=== PATIENT | female | born 1970 | race Hispanic/Latino ===

== ENCOUNTER 2016-07-19 07:48 | Emergency (ER) | payer OTHER ==
[2016-07-19 07:53] VITALS: BMI 27.4
[2016-07-19 07:57] VITALS: TEMP 98.1
[2016-07-19] MEDS ORDERED: Albuterol-Ipratrop 3 mg / 0.5 (3 ml) UD IH STA ×4 (08:20→08:21)
[2016-07-19] MEDS ORDERED: Albuterol-Ipratrop 3 mg / 0.5 (3 ml) UD ONE (08:22)
--- NOTE | 2016-07-19 08:24 | ED PDOC ---
Arrival/HPI - General Chief Complaint: Shortness Of Breath Time Seen by Provider: 07/19/16 08:07 - History of Present Illness Narrative History of Present Illness (Text): 46 year old female with a past medical history that includes COPD and asthma, presents to the Emergency Department complaining of shortness of breath for the past 3 days. Patient states that she has run out of her albuterol medication at home. Denies any history of intubation. Reports cough with clear phlegm and a subjective fever yesterday that resolved. Denies pain, vomiting, travel, sick contacts. Past Medical History - Infectious Disease Hx of Infectious Diseases: None - Tetanus Immunization Tetanus Immunization: Unknown - Cardiac Hx Cardiac Disorders: Yes Hx Hypertension: Yes - Pulmonary Hx Respiratory Disorders: Yes (pt has home o2) Hx Asthma: Yes Hx Bronchitis: Yes Hx Chronic Obstructive Pulmonary Disease (COPD): Yes Hx Emphysema: Yes - Neurological Hx Neurological Disorder: No - HEENT Hx HEENT Disorder: No - Renal Hx Renal Disorder: No - Endocrine/Metabolic Hx Endocrine Disorders: No - Hematological/Oncological Hx Blood Disorders: No - Integumentary Hx Dermatological Disorder: No - Musculoskeletal/Rheumatological Hx Falls: No - Gastrointestinal Hx Gastrointestinal Disorders: No - Genitourinary/Gynecological Hx Genitourinary Disorders: No - Psychiatric Hx Psychophysiologic Disorder: Yes Hx Anxiety: Yes Hx Substance Use: No - Past Surgical History Past Surgical History: No Previous - Surgical History Hx Section: Yes - Anesthesia Hx Anesthesia: Yes Hx Anesthesia Reactions: No - Suicidal Assessment Feels Threatened In Home Enviroment: No Family/Social History Family/Social History: No Known Family HX Smoking Status: Current Some Days Smoker Hx Alcohol Use: No Hx Substance Use: No Hx Substance Use Treatment: No Allergies/Home Meds Allergies/Adverse Reactions: Allergies No Known Allergies Allergy (Verified 07/19/16 07:53) Home Medications: Home Meds Medication Instructions Recorded Confirmed Albuterol 0.5% [Albuterol 0.5% 3 ml IH PRN PRN 05/31/16 07/19/16 Inhal Peggy (5 mg/ ml) 20 ml] Albuterol HFA [Ventolin HFA 90 2 puff IH PRN PRN 05/31/16 07/19/16 mcg/actuation (8 g)] Review of Systems - Physician Review All systems were reviewed & negative as marked: Yes - Review of Systems Respiratory: SOB Cardiovascular: absent: Chest Pain Gastrointestinal: absent: Abdominal Pain Physical Exam - Physical Exam Narrative Physical Exam (Text): Constitutional: No acute distress. Head: Normocephalic. Atraumatic. Eyes: PERRL. ENT: Moist mucous membranes. Neck: Supple. Cardiovascular: Regular rate. Chest: No tenderness. Respiratory: Diffuse expiratory wheezing. GI: Soft. Nontender. Nondistended. Back: No CVA tenderness. Musculoskeletal: No tenderness or swelling of extremities. Skin: No rash. Neurologic: Alert, no focal deficit. Vital Signs Reviewed: Yes Vital Signs Temp Pulse Resp BP Pulse Ox 07/19/16 10:03 72 18 121/73 99 07/19/16 08:08 20 07/19/16 07:49 98.1 F 69 19 148/87 94 L Temperature: Afebrile Blood Pressure: Normal Pulse: Regular Respiratory Rate: Normal Appearance: Positive for: Well-Appearing, Non-Toxic, Comfortable Pain Distress: None Mental Status: Positive for: Alert and Oriented X 3 Medical Decision Making ED Course and Treatment: 46 y/o F c history of COPD presenting with shortness of breath typical of her COPD in the setting of a URI. Will treat with duonebs, steroids, check CXR to rule out pneumonia, and reassess. 07/19/16 08:56 Chest X-ray results reviewed: IMPRESSION: No focal consolidation, significant pleural effusion, or definite pneumothorax identified. 07/19/16 09:55 On reevaluation, patient states that breathing has improved markedly and is in no acute distress. I have discussed the results and plan with the patient, who expresses understanding. Patient given the opportunity to ask question, all questions were answered and there is agreement with the plan to discharge the patient home. Patient is stable for discharge. Patient was instructed to follow up with physician/clinic in 1-2 days or return if symptoms persist/ worsen or new concerning symptoms arise. - RAD Interpretation Narrative RAD Interpretations (Text): Chest, one view. FINDINGS: Examination limited by habitus. LUNGS: No focal consolidation. Please note that chest x-ray has limited sensitivity for the detection of pulmonary masses. PLEURA: No significant pleural effusion identified. No definite pneumothorax . CARDIOVASCULAR: The cardiomediastinal silhouette appears within normal limits of size. OSSEOUS STRUCTURES: No acute osseous abnormality identified. VISUALIZED UPPER ABDOMEN: Unremarkable. OTHER FINDINGS: None. IMPRESSION: No focal consolidation, significant pleural effusion, or definite pneumothorax identified. Radiology Orders: 07/19/16 08:20 CHEST PORTABLE [RAD] Stat Automatic Seamer: Radiologist - Medication Orders Current Medication Orders: Discontinued Medications Albuterol/Ipratropium (Duoneb 3 Mg/0.5 Mg (3 Ml) Ud) Confirm Administered Dose 9 ml .ROUTE .STK-MED ONE Stop: 07/19/16 08:23 Last Admin: 07/19/16 08:35 Dose: 9 ML Comments: taken med not verified but have to be given to patient Albuterol/Ipratropium (Duoneb 3 Mg/0.5 Mg (3 Ml) Ud) 3 ml IH STAT STA Stop: 07/19/16 08:21 Last Admin: 07/19/16 08:36 Dose: 3 ML Albuterol/Ipratropium (Duoneb 3 Mg/0.5 Mg (3 Ml) Ud) 3 ml IH STAT STA Stop: 07/19/16 08:22 Last Admin: 07/19/16 08:41 Dose: 3 ML Albuterol/Ipratropium (Duoneb 3 Mg/0.5 Mg (3 Ml) Ud) 3 ml IH STAT STA Stop: 07/19/16 08:22 Last Admin: 07/19/16 08:48 Dose: 3 ML Prednisone (Prednisone Tab) 60 mg PO STAT ONE Stop: 07/19/16 08:21 Last Admin: 07/19/16 08:36 Dose: 60 MG Disposition/Present on Arrival - Present on Arrival Any Indicators Present on Arrival: No History of DVT/PE: No History of Uncontrolled Diabetes: No Urinary Catheter: No History of Decub. Ulcer: No History Surgical Site Infection Following: None - Disposition Have Diagnosis and Disposition been Completed?: Yes Diagnosis: COPD exacerbation Disposition: HOME/ ROUTINE Disposition Time: 09:48 Patient Plan: Discharge Condition: STABLE Discharge Instructions (ExitCare): COPD (Chronic Obstructive Pulmonary Disease ) (ED) Prescriptions: Albuterol 0.083% [Albuterol Sulfate 3 Ml] 3 ml IH Q4 #150 neb Prednisone [Deltasone] 3 tab PO DAILY #12 tablet Albuterol HFA [Ventolin HFA 90 mcg/actuation (8 g)] 2 puff IH Q6 #1 inhaler Referrals: PCP,NO [Primary Care Provider] - Follow up with primary
--- NOTE | 2016-07-19 08:52 | RAD ---
HISTORY: dyspnea COMPARISON: Chest x-ray performed 05/31/16 TECHNIQUE: Chest, one view. FINDINGS: Examination limited by habitus. LUNGS: No focal consolidation. Please note that chest x-ray has limited sensitivity for the detection of pulmonary masses. PLEURA: No significant pleural effusion identified. No definite pneumothorax . CARDIOVASCULAR: The cardiomediastinal silhouette appears within normal limits of size. OSSEOUS STRUCTURES: No acute osseous abnormality identified. VISUALIZED UPPER ABDOMEN: Unremarkable. OTHER FINDINGS: None. IMPRESSION: No focal consolidation, significant pleural effusion, or definite pneumothorax identified.
[2016-07-19 10:11] VITALS: BP 121/73; PULSE 72; RESP 18; O2SAT 99
== END 2016-07-19 10:12 | disposition home or self-care (01) ==
LOC: ED 07:48
DX: J44.1 Chronic obstructive pulmonary disease with (acute) exacerbation (principal)

== ENCOUNTER 2016-09-05 17:05 | Inpatient (IN) | payer MEDICARE, MEDICAID ==
[2016-09-05 17:08] VITALS: BMI 32.9
[2016-09-05] MEDS ORDERED: Albuterol-Ipratrop 3 mg / 0.5 (3 ml) UD ONE (17:15)
[2016-09-05] MEDS: Albuterol-Ipratrop 3 mg / 0.5 (3 ml) UD IH SCH ×4 (17:20→23:30)
--- NOTE | 2016-09-05 17:21 | ED PDOC ---
Arrival/HPI - General Chief Complaint: Shortness Of Breath Time Seen by Provider: 09/05/16 17:06 Historian: Patient - History of Present Illness Narrative History of Present Illness (Text): 09/05/16 17:19 46 year old female whose past medical history includes COPD presents to the emergency department with shortness of breath since yesterday. c/o of cough productive of clear sputum. chest pain with coughing. No other complaints. 09/05/16 20:12 Time/Duration: 24 hours Symptom Onset: Gradual Symptom Course: Unchanged Associated Symptoms (Text): None Past Medical History - Provider Review Nursing Documentation Reviewed: Yes - Infectious Disease Hx of Infectious Diseases: None - Tetanus Immunization Tetanus Immunization: Unknown - Reproductive Menopause: Yes - Cardiac Hx Cardiac Disorders: Yes Hx Hypertension: Yes - Pulmonary Hx Respiratory Disorders: Yes (pt has home o2) Hx Asthma: Yes Hx Bronchitis: Yes Hx Chronic Obstructive Pulmonary Disease (COPD): Yes Hx Emphysema: Yes - Neurological Hx Neurological Disorder: No - HEENT Hx HEENT Disorder: No - Renal Hx Renal Disorder: No - Endocrine/Metabolic Hx Endocrine Disorders: No - Hematological/Oncological Hx Blood Disorders: No - Integumentary Hx Dermatological Disorder: No - Musculoskeletal/Rheumatological Hx Falls: No - Gastrointestinal Hx Gastrointestinal Disorders: No - Genitourinary/Gynecological Hx Genitourinary Disorders: No - Psychiatric Hx Psychophysiologic Disorder: Yes Hx Anxiety: Yes Hx Substance Use: No - Past Surgical History Past Surgical History: No Previous - Surgical History Hx Section: Yes - Anesthesia Hx Anesthesia: Yes Hx Anesthesia Reactions: No Hx Malignant Hyperthermia: No - Suicidal Assessment Feels Threatened In Home Enviroment: No Family/Social History - Physician Review Nursing Documentation Reviewed: Yes Family/Social History: Unknown Family HX Smoking Status: Light Smoker < 10 Cigarettes Daily Hx Alcohol Use: No Hx Substance Use: No Hx Substance Use Treatment: No Allergies/Home Meds Allergies/Adverse Reactions: Allergies No Known Allergies Allergy (Verified 09/05/16 17:12) Home Medications: Home Meds Medication Instructions Recorded Confirmed Albuterol 0.5% [Albuterol 0.5% 3 ml IH PRN PRN 05/31/16 09/05/16 Inhal Peggy (5 mg/ ml) 20 ml] Albuterol HFA [Ventolin HFA 90 2 puff IH PRN PRN 05/31/16 09/05/16 mcg/actuation (8 g)] Review of Systems - Physician Review All systems were reviewed & negative as marked: Yes - Review of Systems Respiratory: SOB Gastrointestinal: absent: Abdominal Pain Skin: absent: Rash Neurological: absent: Headache, Dizziness Physical Exam Vital Signs Reviewed: Yes Vital Signs Temp Pulse Resp BP Pulse Ox 09/05/16 19:03 94 H 18 147/78 95 09/05/16 17:36 20 94 L 09/05/16 17:11 97.7 F 80 25 H 138/73 93 L 09/05/16 17:09 97.7 F 78 21 149/79 94 L Temperature: Afebrile Blood Pressure: Normal Pulse: Regular Respiratory Rate: Normal Appearance: Positive for: Well-Appearing, Non-Toxic, Comfortable Pain Distress: None Mental Status: Positive for: Alert and Oriented X 3 - Systems Exam Head: Present: Atraumatic, Normocephalic Pupils: Present: PERRL Extroacular Muscles: Present: EOMI Conjunctiva: Present: Normal Mouth: Present: Moist Mucous Membranes Neck: Present: Normal Range of Motion Respiratory/Chest: Present: Wheezes (Diffuse bilateral). No: Respiratory Distress, Accessory Muscle Use Cardiovascular: Present: Regular Rate and Rhythm, Normal S1, S2. No: Murmurs Abdomen: Present: Normal Bowel Sounds. No: Tenderness, Distention, Peritoneal Signs Back: Present: Normal Inspection Upper Extremity: Present: Normal Inspection. No: Cyanosis, Edema Lower Extremity: Present: Normal Inspection. No: Edema Neurological: Present: GCS=15, CN II-XII Intact, Speech Normal Skin: Present: Warm, Dry, Normal Color. No: Rashes Psychiatric: Present: Alert, Oriented x 3, Normal Insight, Normal Concentration Medical Decision Making ED Course and Treatment: Impression: 46 year old female whose past medical history includes COPD presents to the emergency department with shortness of breath since yesterday. Differential Diagnosis include but are not limited to: COPD exacerbation Plan: -- EKG, CXR -- Duoneb, SoluMedrol -- Labs -- Reassess and disposition Prior Visits: Notes and results from previous visits were reviewed. Patient last seen in ED on 07/19/16 for shortness of breath and discharged home. Progress Notes: 09/05/16 17:38 Chest x-ray read by me negative for pneumothorax, pneumonia, cardiomegaly or infiltrates. 09/05/16 19:14 Patient with persistent wheezing, minimal improvement. Pt given IV magnesium. [facility] medical dermatologist. - Critical Care Critical Care Minutes: 30 minutes - Lab Interpretations Lab Results: 09/05/16 17:25 09/05/16 17:25 Lab Results 09/05/16 17:25: Sodium 142, Chloride 104, Potassium 3.4 L, Carbon Dioxide 28, Anion Gap 13, BUN 11, Creatinine 0.8, Est GFR ( Amer) > 60, Est GFR (Non- Af Amer) > 60, Random Glucose 91, Calcium 8.7, Magnesium 2.2, Total Bilirubin 0.4, AST 35, ALT 43, Alkaline Phosphatase 55, Lactate Dehydrogenase 604, Total Creatine Kinase 579 H, CK-MB (CK-2) 4.3 H, CK-MB (CK-2) % Cancelled, Troponin I < 0.01, Total Protein 7.0, Albumin 3.8, Globulin 3.2, Albumin/Globulin Ratio 1.2 09/05/16 17:25: PT 10.3, INR 0.95, APTT 26.3 09/05/16 17:25: WBC 8.3 D, RBC 4.25, Hgb 13.0, Hct 38.8, MCV 91.3, MCH 30.6, MCHC 33.5, RDW 13.5, Plt Count 225, MPV 10.9, Gran % 53.3, Lymph % (Auto) 18.0 L , [place] % (Auto) 9.5 H, Eos % (Auto) 17.9 H, Baso % (Auto) 1.3, Gran # 4.41, Lymph # 1.5, [place] # 0.8 H, Eos # 1.5 H, Baso # 0.11 09/05/16 17:25: pO2 156 H, VBG pH 7.40, VBG pCO2 47.0, VBG HCO3 29.1 H, VBG Total CO2 30.5 H, VBG O2 Sat (Calc) 99.5 H, VBG Base Excess 3.5 H, VBG Potassium 3.5 L, Sodium 142.0, Chloride 112.0 H, Glucose 98, Lactate 0.9, FiO2 21.0, Venous Blood Potassium 3.5 L - RAD Interpretation Radiology Orders: 09/05/16 17:16 CHEST PORTABLE [RAD] Stat - EKG Interpretation EKG Interpretation (Text): EKG shows NSR at [address]/t wave changes. Interpreted by me. Interpreted by ED Physician: Yes Type: 12 lead EKG - Medication Orders Current Medication Orders: Discontinued Medications Albuterol/Ipratropium (Duoneb 3 Mg/0.5 Mg (3 Ml) Ud) Confirm Administered Dose 3 ml .ROUTE .STK-MED ONE Stop: 09/05/16 17:16 Last Admin: 09/05/16 17:41 Dose: Albuterol/Ipratropium (Duoneb 3 Mg/0.5 Mg (3 Ml) Ud) 3 ml IH Q15M RUFINA Stop: 09/05/16 18:01 Last Admin: 09/05/16 17:55 Dose: 3 ml Guaifenesin (Robitussin) 100 mg PO STAT STA Stop: 09/05/16 17:40 Last Admin: 09/05/16 17:47 Dose: 100 mg Magnesium Sulfate 2 gm/ Sodium (Chloride) 104 mls @ 102 mls/hr IVPB ONCE ONE Stop: 09/05/16 19:04 Last Admin: 09/05/16 18:24 Dose: 102 mls/hr Methylprednisolone (Solu-Medrol) 125 mg IVP STAT STA Stop: 09/05/16 17:17 Last Admin: 09/05/16 17:40 Dose: 125 mg - Scribe Statement The provider has reviewed the documentation as recorded by the Helen Mares Provider Scribe Attestation: All medical record entries made by the Helen were at my direction and personally dictated by me. I have reviewed the chart and agree that the record accurately reflects my personal performance of the history, physical exam, medical decision making, and the department course for this patient. I have also personally directed, reviewed, and agree with the discharge instructions and disposition. Disposition/Present on Arrival - Present on Arrival Any Indicators Present on Arrival: No History of DVT/PE: No History of Uncontrolled Diabetes: No Urinary Catheter: No History of Decub. Ulcer: No History Surgical Site Infection Following: None - Disposition Have Diagnosis and Disposition been Completed?: Yes Diagnosis: COPD exacerbation Disposition: HOSPITALIZED Disposition Time: 07:30 Patient Problems: Current Active Problems Problem Status Onset COPD exacerbation Acute Condition: FAIR
[2016-09-05] MEDS ORDERED: guaiFENesin 100 mg/5 ml Syrup UD PO STA (17:39)
[2016-09-05 17:46] LABS: ADD MANUAL DIFF? NO
[2016-09-05 17:52] LABS: VENOUS BLOOD GAS BASE EXCESS 3.5 mmol/L (0.0-2.0)
[2016-09-05 17:58] LABS: ALB/GLOB RATIO 1.2 (1.1-1.8); ALKALINE PHOSPHATASE 55 U/L (38-133); ALT/SGPT 43 U/L (7-56); AST/SGOT 35 U/L (15-39); BILIRUBIN,TOTAL 0.4 mg/dL (0.2-1.3); BLOOD UREA NITROGEN 11 mg/dL (7-21); CALCIUM 8.7 mg/dL (8.4-10.5); CARBON DIOXIDE 28 mmol/L (21-33); CHLORIDE 104 mmol/L (98-107); GFR AFRICAN-AMERICAN > 60; GLUCOSE,RANDOM 91 mg/dL (70-110); MAGNESIUM 2.2 mg/dL (1.7-2.2); POTASSIUM 3.4 mmol/L (3.6-5.0); SODIUM 142 mmol/L (132-148)
[2016-09-05] MEDS ORDERED: Magnesium Sulfate 2 GM in Sodium Chloride 0.9% 100 ML IVPB ONE (18:03)
[2016-09-05 18:07] LABS: BASO # 0.11 K/mm3 (0.0-2.0); BASO % 1.3 % (0.0-3.0); EOS # 1.5 (0.0-0.7); EOS % 17.9 % (1.5-5.0); GRAN # 4.41 (1.4-6.5); GRAN % 53.3 % (50.0-68.0); HEMATOCRIT 38.8 % (36.0-48.0); LYMPH # 1.5 (1.2-3.4); MEAN CELL VOLUME 91.3 fL (80.0-105.0); MEAN CORPUSCULAR HEMOGLOBIN 30.6 pg (25.0-35.0); MEAN CORPUSCULAR HGB CONC 33.5 g/dl (31.0-37.0); MEAN PLATELET VOLUME 10.9 fl (7.0-11.0); MONO # 0.8 (0.1-0.6); MONO % 9.5 % (1.0-6.0); PLATELET COUNT 225 10^3/uL (120.0-450.0); RED CELL DISTRIBUTION WIDTH 13.5 % (11.5-14.5); WHITE BLOOD COUNT 8.3 10^3/ul (4.5-11.0)
[2016-09-05 18:14] LABS: INR 0.95 (0.93-1.08); PARTIAL THROMBOPLASTIN TIME 26.3 Seconds (23.7-30.8)
[2016-09-05 18:34] LABS: TROPONIN I < 0.01 ng/mL
[2016-09-05 20:12] LABS: PH,URINE 7.5 (4.7-8.0); URINE BILIRUBIN NEGATIVE (NEGATIVE); URINE BLOOD NEGATIVE (NEGATIVE); URINE GLUCOSE (UA) NEGATIVE (NEGATIVE); URINE KETONE TRACE mg/dL (NEGATIVE); URINE LEUKOCYTE ESTERASE SMALL Leu/uL (NEGATIVE); URINE PROTEIN NEGATIVE mg/dL (<30 mg/dL); URINE UROBILINOGEN 0.2 E.U./dL (<1 E.U./dL)
[2016-09-05 20:15] LABS: URINE APPEARANCE CLEAR (CLEAR); URINE COLOR YELLOW (YELLOW)
[2016-09-05 20:18] LABS: URINE RBC NEGATIVE /hpf (0-2)
[2016-09-05 20:19] LABS: URINE BACTERIA FEW (NEG)
[2016-09-05] MEDS ORDERED: Pneumococcal 23-Valent Vaccine IM ONE (21:29)
[2016-09-05] MEDS: Potassium Chloride 40 mEq/30 ml LIQ UD PO SCH (21:51)
[2016-09-05] MEDS ORDERED: MethylPREDNISolone 40 mg Vial IVP SCH (22:00)
--- NOTE | 2016-09-05 22:08 | CP.PCM.HP ---
<Vladimir Pack - Last Filed: 09/05/16 22:28> History of Present Illness - History of Present Illness History of Present Illness: Vladimir Pack D.O. PGY-1, Internal Medicine Resident, Night Float Admission CC: SOB x 2 days 46 year old female with a PMH of COPD who presents to [facility] ER on 09/05/16 with complaints of shortness of breath for the last two days. Patient states that the shortness of breath has been progressively worse, is similar to previous episodes, is associated with some coughing, is worse going up stairs, is better with rest, and is also associated with some chills. Patient denies fever, productive cough, or other symptoms. Patient denies sick contacts or recent travel. PMH: as above PSH: C-sections SH: 1ppd x 30 years, denies alcohol or drug use FH: sister had kidney cancer Meds: reviewed and reconciled Allergies: influenza virus vaccine Present on Admission - Present on Admission Any Indicators Present on Admission: No Review of Systems - Constitutional Constitutional: Chills. absent: Fatigue, Fever - EENT Eyes: absent: Blind Spots, Blurred Vision, Change in Vision Ears: absent: Decreased Hearing, Ear Discharge, Ear Pain Nose/Mouth/Throat: absent: Epistaxis, Nasal Congestion, Nasal Trauma - Cardiovascular Cardiovascular: absent: Chest Pain, Leg Edema, Palpitations - Respiratory Respiratory: Cough, Dyspnea, Wheezing. absent: Hemoptysis - Gastrointestinal Gastrointestinal: absent: Abdominal Pain, Constipation, Diarrhea, Nausea, Vomiting - Genitourinary Genitourinary: absent: Dysuria, Hematuria - Musculoskeletal Musculoskeletal: absent: Arthralgias, Atrophy, Joint Swelling - Integumentary Integumentary: absent: Pruritus, Rash, Sores - Neurological Neurological: absent: Abnormal Gait, Abnormal Hearing, Weakness Past Patient History - Infectious Disease Hx of Infectious Diseases: None - Tetanus Immunizations Tetanus Immunization: Unknown - Past Social History Smoking Status: Light Smoker < 10 Cigarettes Daily - CARDIAC Hx Cardiac Disorders: Yes Hx Hypertension: Yes - PULMONARY Hx Respiratory Disorders: Yes (pt has home o2) Hx Asthma: Yes Hx Bronchitis: Yes Hx Chronic Obstructive Pulmonary Disease (COPD): Yes Hx Emphysema: Yes Other/Comment: pt took a trip to [place] and when she came home "my oxygen machine was gone. I don't know what happened to it". her home nebulizer machine "broke yesterday" Has no insurance ran out of some of her meds but "I got medicaid today" - NEUROLOGICAL Hx Neurological Disorder: No - HEENT Hx HEENT Problems: No - RENAL Hx Chronic Kidney Disease: No - ENDOCRINE/METABOLIC Hx Endocrine Disorders: No - HEMATOLOGICAL/ONCOLOGICAL Hx Blood Disorders: No - INTEGUMENTARY Hx Dermatological Problems: Yes Other/Comment: tatoo - MUSCULOSKELETAL/RHEUMATOLOGICAL Hx Falls: No - GASTROINTESTINAL Hx Gastrointestinal Disorders: No - GENITOURINARY/GYNECOLOGICAL Hx Genitourinary Disorders: No - PSYCHIATRIC Hx Substance Use: No - SURGICAL HISTORY Hx Surgeries: Yes (tubal,c section) - ANESTHESIA Hx Anesthesia: Yes Hx Anesthesia Reactions: No Hx Malignant Hyperthermia: No Meds Allergies/Adverse Reactions: Allergies Allergy/AdvReac Type Severity Reaction Status Date / Time Influenza Virus Vaccines Allergy SWELLING Verified 09/05/16 21:11 Physical Exam - Constitutional Additional comments: well developed, well nourished, pleasant female, appears somewhat unkept - Head Exam Head Exam: ATRAUMATIC, NORMOCEPHALIC - Eye Exam Eye Exam: EOMI, PERRL. absent: Conjunctival injection, Scleral icterus - ENT Exam ENT Exam: Mucous Membranes Moist, Normal Oropharynx - Neck Exam Neck exam: Positive for: Full Rom. Negative for: Lymphadenopathy - Respiratory Exam Respiratory Exam: Wheezes. absent: Rales, Rhonchi - Cardiovascular Exam Cardiovascular Exam: RRR, +S1, +S2. absent: Diastolic murmur, Gallop, Rubs, Systolic Murmur - GI/Abdominal Exam GI & Abdominal Exam: Normal Bowel Sounds, Soft. absent: Distended, Tenderness - Extremities Exam Extremities exam: Positive for: normal capillary refill, pedal pulses present. Negative for: calf tenderness, pedal edema, tenderness - Back Exam Back exam: absent: paraspinal tenderness, vertebral tenderness - Neurological Exam Neurological exam: Alert, CN II-XII Intact, Oriented x3 - Skin Skin Exam: Dry, Intact, Warm Results - Vital Signs Recent Vital Signs: Last Vital Signs Temp 97.7 F 09/05/16 21:20 Pulse 94 H 09/05/16 21:20 Resp 18 09/05/16 21:20 BP 147/78 09/05/16 21:20 Pulse Ox 95 09/05/16 19:03 - Labs Result Diagrams: 09/05/16 17:25 09/05/16 17:25 Labs: Laboratory Results - last 24 hr 09/05/16 09/05/16 19:53 19:53 Urine Color Yellow Urine Appearance Clear Urine pH 7.5 Ur Specific Thompson 1.020 Urine Protein Negative Urine Glucose (UA) Negative Urine Ketones Trace H Urine Blood Negative Urine Nitrate Negative Urine Bilirubin Negative Urine Urobilinogen 0.2 Ur Leukocyte Esterase Small H Urine RBC Negative Urine WBC 1 - 3 Ur Epithelial Cells 10 - 12 Urine Bacteria Few Urine HCG, Qual Negative Assessment & Plan - Assessment and Plan (Free Text) Assessment: 46 year old female with a PMH of COPD who presents with complaints of shortness of breath for the last two days. Plan: 1. COPD exacerbation Admitted Likely 2/2 continued tobacco abuse Counseled at length about smoking cessation, patient appears amenable, states is trying to quite, resources offered Duonebs q4h and q2h PRN Started ceftriaxone and azithromycin Tessalon perles Solumedrol 20 q12 Vitals q4h PRN O2 NC 2. Hypokalemia Replenished Recheck CMP in the AM 3. Tobacco abuse As above, discussed smoking cessation and encouraged patient DVT ppx: SCDs Patient was seen and examined and case was discussed at length with attending physician. - Date & Time Date: 09/05/16 Time: 07:45 <Montez Barragan - Last Filed: 09/06/16 01:59> Results - Vital Signs Recent Vital Signs: Last Vital Signs Temp 98 F 09/06/16 00:00 Pulse 104 H 09/06/16 00:00 Resp 19 09/06/16 00:00 BP 134/92 H 09/06/16 00:00 Pulse Ox 95 09/05/16 19:03 - Labs Result Diagrams: 09/05/16 17:25 09/05/16 17:25 Labs: Laboratory Results - last 24 hr 09/05/16 09/05/16 19:53 19:53 Urine Color Yellow Urine Appearance Clear Urine pH 7.5 Ur Specific [place] 1.020 Urine Protein Negative Urine Glucose (UA) Negative Urine Ketones Trace H Urine Blood Negative Urine Nitrate Negative Urine Bilirubin Negative Urine Urobilinogen 0.2 Ur Leukocyte Esterase Small H Urine RBC Negative Urine WBC 1 - 3 Ur Epithelial Cells 10 - 12 Urine Bacteria Few Urine HCG, Qual Negative Attending/Attestation - Attestation I have personally seen and examined this patient.: Yes I have fully participated in the care of the patient.: Yes I have reviewed all pertinent clinical information: Yes Notes (Text): 09/06/16 01:58 Patient was seen when she was in the ER. Agree with history , physical examination, assessment and plan.
[2016-09-06] MEDS: Albuterol-Ipratrop 3 mg / 0.5 (3 ml) UD IH SCH ×7 (02:45→23:37)
[2016-09-06] MEDS: Potassium Chloride 40 mEq/30 ml LIQ UD PO SCH (02:54)
[2016-09-06] MEDS: guaiFENesin DM 200 mg-20 mg/10 ml UD PO PRN ×5 (02:55→18:50)
[2016-09-06] MEDS: Albuterol-Ipratrop 3 mg / 0.5 (3 ml) UD IH PRN ×3 (05:40→13:49)
[2016-09-06 07:59] LABS: ADD MANUAL DIFF? NO
[2016-09-06 08:23] LABS: ALB/GLOB RATIO 1.2 (1.1-1.8); ALKALINE PHOSPHATASE 62 U/L (38-133); ALT/SGPT 41 U/L (7-56); AST/SGOT 31 U/L (15-39); BILIRUBIN,TOTAL 0.3 mg/dL (0.2-1.3); BLOOD UREA NITROGEN 10 mg/dL (7-21); CALCIUM 9.1 mg/dL (8.4-10.5); CARBON DIOXIDE 25 mmol/L (21-33); CHLORIDE 104 mmol/L (95-110); GFR AFRICAN-AMERICAN > 60; GLUCOSE,RANDOM 125 mg/dL (70-110); POTASSIUM 4.3 mmol/L (3.6-5.0); SODIUM 139 mmol/L (132-148); TOTAL PROTEIN 7.6 g/dL (5.8-8.3)
[2016-09-06] MEDS: cefTRIAXone 1 gm 1 GM/100 ML BAG IVPB SCH (09:14)
--- NOTE | 2016-09-06 09:27 | RAD ---
HISTORY: sob COMPARISON: No prior. FINDINGS: LUNGS: No active pulmonary disease. PLEURA: No significant pleural effusion identified, no pneumothorax apparent. CARDIOVASCULAR: Normal. OSSEOUS STRUCTURES: No significant abnormalities. VISUALIZED UPPER ABDOMEN: Normal. OTHER FINDINGS: None. IMPRESSION: No active disease.
[2016-09-06] MEDS: Sodium Chloride 0.9% 1,000 ML IV SCH ×3 (09:52→22:49)
--- NOTE | 2016-09-06 10:20 | CP.PCM.PN ---
<GretchenAntonia vázquez - Last Filed: 09/06/16 10:16> Subjective - Date & Time of Evaluation Date of Evaluation: 09/06/16 Time of Evaluation: 10:16 - Subjective Subjective: Hospitalist Progress Note Patient seen and examined at bedside. There were no acute overnight events. Upon examination, patient was resting comfortably in bed. She says she has SOB and CP with deep inspiration. She also complains of cough with yellow mucus. She denies n/v/d, numbness/tingling, fever or chills. Objective - Vital Signs/Intake and Output Vital Signs (last 24 hours): Temp Pulse Resp BP Pulse Ox 98 F 104 H 19 134/92 H 95 09/06/16 00:00 09/06/16 00:00 09/06/16 00:00 09/06/16 00:00 09/05/16 19:03 Intake and Output: 09/06/16 09/06/16 06:59 18:59 Intake Total 240 Output Total 0 Balance 240 - Medications Medications: Current Medications Albuterol/Ipratropium (Duoneb 3 Mg/0.5 Mg (3 Ml) Ud) 3 ml IH [id number] ADDY Last Admin: 09/06/16 07:48 Dose: 3 ml Albuterol/Ipratropium (Duoneb 3 Mg/0.5 Mg (3 Ml) Ud) 3 ml IH Q2H PRN PRN Reason: Shortness of Breath Last Admin: 09/06/16 05:40 Dose: 3 ml Alprazolam (Xanax) 0.25 mg PO BID ADDY PRN Reason: Protocol Stop: 09/12/16 22:16 Last Admin: 09/06/16 09:15 Dose: 0.25 mg Alprazolam (Xanax) 0.25 mg PO Q6 PRN; Protocol PRN Reason: Anxiety Stop: 09/13/16 12:01 Benzocaine/Menthol (Cepacol Sore Throat) 1 rosalind MT Q2H PRN PRN Reason: Sore Throat Guaifenesin/Dextromethorphan (Robitussin Dm) 10 ml PO Q4H PRN PRN Reason: Cough Last Admin: 09/06/16 07:40 Dose: 10 ml Ceftriaxone Sodium (Rocephin 1 Gram Ivpb) 1 gm in 100 mls @ 100 mls/hr IVPB DAILY ADDY PRN Reason: Protocol Last Admin: 09/06/16 09:14 Dose: 100 mls/hr Azithromycin (Zithromax 500mg In Ns) 500 mg in 250 mls @ 167 mls/hr IVPB DAILY ADDY PRN Reason: Protocol Sodium Chloride (Sodium Chloride 0.9%) 1,000 mls @ 100 mls/hr IV .Q10H ADDY Lorazepam (Ativan) 1 mg IVP Q4 PRN; Protocol PRN Reason: Anxiety Methylprednisolone (Solu-Medrol) 60 mg IVP Q12 ADDY Last Admin: 09/06/16 09:15 Dose: 60 mg Montelukast Sodium (Singulair) 10 mg PO HS ADDY Nicotine (Nicoderm Cq) 1 patch TD DAILY ADDY - Labs Labs: 09/06/16 07:57 PT 10.3 Seconds (9.9-11.8) 09/05/16 17:25 INR 0.95 (0.93-1.08) 09/05/16 17:25 APTT 26.3 Seconds (23.7-30.8) 09/05/16 17:25 - Constitutional Appears: No Acute Distress - Head Exam Head Exam: ATRAUMATIC, NORMAL INSPECTION, NORMOCEPHALIC - Eye Exam Eye Exam: Normal appearance Pupil Exam: NORMAL ACCOMODATION - ENT Exam ENT Exam: Mucous Membranes Moist - Neck Exam Neck Exam: Full ROM - Respiratory Exam Respiratory Exam: Wheezes (throughout all lung dumont ), NORMAL BREATHING PATTERN. absent: Rales, Respiratory Distress, Stridor - Cardiovascular Exam Cardiovascular Exam: REGULAR RHYTHM, +S1, +S2. absent: Gallop, Rubs, Murmur - GI/Abdominal Exam GI & Abdominal Exam: Soft, Normal Bowel Sounds. absent: Rigid, Tenderness, Mass , Rebound - Extremities Exam Extremities Exam: Normal Inspection. absent: Calf Tenderness, Pedal Edema - Neurological Exam Neurological Exam: Alert, Awake, CN II-XII Intact, Oriented x3 - Psychiatric Exam Psychiatric exam: Normal Affect, Normal Mood - Skin Skin Exam: Dry, Normal Color, Warm Assessment and Plan - Assessment and Plan (Free Text) Assessment: This is a 46Y F with PMH of COPD who is admitted for COPD exacerbation. Plan: 1. COPD exacerbation - secondary to tobacco abuse- lost home oxygen, has no PMD - CXR showed no active disease - Continue Zithromax and Rocephin - Cepachol and Robitussin prn - Duoneb addy and prn - Continue Solumedrol 60q12, Singulair 2. Tobacco Abuse - Counseled on tobacco cessation - Continue Nicotine patch 3. Cocaine abuse - UDS + for cocaine - CPK 500 can be secondary to drugs - Will start NS@100 - Counseled on drug cessation 4. Hypokalemia- resolved - Will continue to monitor electrolytes and replace as needed DVT ppx: SCDs GI ppx: Protonix case seen, discussed and reviewed with attending. Rima Davis PGY1 <Yoel Pickering - Last Filed: 09/06/16 13:12> Objective - Vital Signs/Intake and Output Vital Signs (last 24 hours): Temp Pulse Resp BP Pulse Ox 98 F 101 H 20 138/89 95 09/06/16 12:10 09/06/16 12:10 09/06/16 12:10 09/06/16 12:10 09/05/16 19:03 Intake and Output: 09/06/16 09/06/16 06:59 18:59 Intake Total 240 Output Total 0 Balance 240 - Medications Medications: Current Medications Albuterol/Ipratropium (Duoneb 3 Mg/0.5 Mg (3 Ml) Ud) 3 ml IH [id number] ADDY Last Admin: 09/06/16 11:42 Dose: 3 ml Albuterol/Ipratropium (Duoneb 3 Mg/0.5 Mg (3 Ml) Ud) 3 ml IH Q2H PRN PRN Reason: Shortness of Breath Last Admin: 09/06/16 10:23 Dose: 3 ml Alprazolam (Xanax) 0.25 mg PO BID ADDY PRN Reason: Protocol Stop: 09/12/16 22:16 Last Admin: 09/06/16 09:15 Dose: 0.25 mg Alprazolam (Xanax) 0.25 mg PO Q6 PRN; Protocol PRN Reason: Anxiety Stop: 09/13/16 12:01 Benzocaine/Menthol (Cepacol Sore Throat) 1 rosalind MT Q2H PRN PRN Reason: Sore Throat Last Admin: 09/06/16 10:43 Dose: 1 rosalind Guaifenesin/Dextromethorphan (Robitussin Dm) 10 ml PO Q4H PRN PRN Reason: Cough Last Admin: 09/06/16 07:40 Dose: 10 ml Ceftriaxone Sodium (Rocephin 1 Gram Ivpb) 1 gm in 100 mls @ 100 mls/hr IVPB DAILY ADDY PRN Reason: Protocol Last Admin: 09/06/16 09:14 Dose: 100 mls/hr Azithromycin (Zithromax 500mg In Ns) 500 mg in 250 mls @ 167 mls/hr IVPB DAILY ADDY PRN Reason: Protocol Last Admin: 09/06/16 11:01 Dose: 167 mls/hr Sodium Chloride (Sodium Chloride 0.9%) 1,000 mls @ 100 mls/hr IV .Q10H ADDY Last Admin: 09/06/16 12:50 Dose: 100 mls/hr Lorazepam (Ativan) 1 mg IVP Q4 PRN; Protocol PRN Reason: Anxiety Methylprednisolone (Solu-Medrol) 60 mg IVP Q12 ADDY Last Admin: 09/06/16 09:15 Dose: 60 mg Montelukast Sodium (Singulair) 10 mg PO HS ADDY Nicotine (Nicoderm Cq) 1 patch TD DAILY [facility] Last Admin: 09/06/16 10:19 Dose: 1 patch Pantoprazole Sodium (Protonix Ec Tab) 40 mg PO ACB ADDY - Labs Labs: 09/06/16 07:57 09/06/16 07:57 PT 10.3 Seconds (9.9-11.8) 09/05/16 17:25 INR 0.95 (0.93-1.08) 09/05/16 17:25 APTT 26.3 Seconds (23.7-30.8) 09/05/16 17:25 Attending/Attestation - Attestation I have personally seen and examined this patient.: Yes I have fully participated in the care of the patient.: Yes I have reviewed all pertinent clinical information, including history, physical exam and plan: Yes Notes (Text): 09/06/16 13:08 Attending note; Patient seen and examined with the resident. Patient is a 46-year-old female with a past medical history of COPD, oxygen dependent, cocaine abuse, noncompliance with follow-up is admitted with COPD exacerbation and tachycardia. Continue DuoNeb treatment. Continue IV Solu-Medrol, Robitussin, IV Rocephin and Zithromax. Continue oxygen nasal cannula. Cocaine abuse; cessation is strongly advised. IV fluids ordered. IV Ativan when necessary. Active smoking; smoking cessation is strongly advised. On NicoDerm patch. export manager/director of social work evaluation requested for discharge planning. Patient will be referred to [facility] clinic upon discharge.
[2016-09-06 10:23] LABS: BASO # 0.01 K/mm3 (0.0-2.0); BASO % 0.1 % (0.0-3.0); GRAN % 87.8 % (50.0-68.0); HEMATOCRIT 42.1 % (36.0-48.0); LYMPH # 0.5 (1.2-3.4); LYMPH % 4.9 % (22.0-35.0); MEAN CELL VOLUME 92.3 fL (80.0-105.0); MEAN CORPUSCULAR HEMOGLOBIN 30.3 pg (25.0-35.0); MEAN CORPUSCULAR HGB CONC 32.8 g/dl (31.0-37.0); MEAN PLATELET VOLUME 11.4 fl (7.0-11.0); MONO # 0.7 (0.1-0.6); MONO % 7.2 % (1.0-6.0); PLATELET COUNT 253 10^3/uL (120.0-450.0); RED CELL DISTRIBUTION WIDTH 13.8 % (11.5-14.5); WHITE BLOOD COUNT 9.5 10^3/ul (4.5-11.0)
[2016-09-06] MEDS: Benzocaine/Menthol (Cepacol) Lozenge MT PRN ×2 (10:43→21:21)
[2016-09-06] MEDS: Azithromycin 500MG/NS 250ml 500 MG/250 ML BAG IVPB SCH (11:01)
--- NOTE | 2016-09-06 14:57 | CARD ---
APPROVED REPORT EKG Measurement Heart [id number] OH [id number] <Conclusion> Sinus rhythm with short OH Possible Left atrial enlargement Prolonged QT Abnormal ECG
[2016-09-07] MEDS: guaiFENesin DM 200 mg-20 mg/10 ml UD PO PRN ×5 (03:14→20:33)
[2016-09-07] MEDS: Benzocaine/Menthol (Cepacol) Lozenge MT PRN ×3 (03:20→20:32)
[2016-09-07] MEDS: Albuterol-Ipratrop 3 mg / 0.5 (3 ml) UD IH SCH ×5 (03:44→19:54)
[2016-09-07 06:36] LABS: ALB/GLOB RATIO 1.1 (1.1-1.8); ALKALINE PHOSPHATASE 45 U/L (38-133); ALT/SGPT 42 U/L (7-56); AST/SGOT 31 U/L (15-39); BILIRUBIN,TOTAL 0.3 mg/dL (0.2-1.3); BLOOD UREA NITROGEN 14 mg/dL (7-21); CALCIUM 8.8 mg/dL (8.4-10.5); CARBON DIOXIDE 25 mmol/L (21-33); CHLORIDE 105 mmol/L (98-107); GFR AFRICAN-AMERICAN > 60; GLUCOSE,RANDOM 133 mg/dL (70-110); POTASSIUM 4.4 mmol/L (3.6-5.0); SODIUM 139 mmol/L (132-148); TOTAL PROTEIN 6.6 g/dL (5.8-8.3)
[2016-09-07 07:23] LABS: HEMATOCRIT 37.8 % (36.0-48.0); MEAN CELL VOLUME 93.8 fL (80.0-105.0); MEAN CORPUSCULAR HEMOGLOBIN 29.8 pg (25.0-35.0); MEAN CORPUSCULAR HGB CONC 31.7 g/dl (31.0-37.0); MEAN PLATELET VOLUME 11.9 fl (7.0-11.0); RED CELL DISTRIBUTION WIDTH 13.8 % (11.5-14.5); WHITE BLOOD COUNT 14.9 10^3/ul (4.5-11.0)
[2016-09-07] MEDS: Pantoprazole 40 mg EC Tab PO SCH (07:56)
[2016-09-07] MEDS: cefTRIAXone 1 gm 1 GM/100 ML BAG IVPB SCH (09:12)
[2016-09-07] MEDS: MethylPREDNISolone 40 mg Vial IV SCH ×2 (10:42→21:58)
[2016-09-07] MEDS: Azithromycin 500MG/NS 250ml 500 MG/250 ML BAG IVPB SCH (10:44)
[2016-09-07] MEDS: Sodium Chloride 0.9% 1,000 ML IV SCH ×3 (10:46→20:01)
--- NOTE | 2016-09-07 14:32 | CP.PCM.PN ---
<Daisy Pierce - Last Filed: 09/07/16 14:28> Subjective - Date & Time of Evaluation Date of Evaluation: 09/07/16 Time of Evaluation: 14:28 - Subjective Subjective: HOSPITALIST PROGRESS NOTE Pt is seen and examined at bedside. No acute events overnight. Patient denies having any CP, SOB, abd pain, N/V/D/C, wheezing. She is tolerating diet. Objective - Vital Signs/Intake and Output Vital Signs (last 24 hours): Temp Pulse Resp BP Pulse Ox 97.4 F L 95 H 20 133/86 95 09/07/16 05:08 09/07/16 10:00 09/07/16 05:08 09/07/16 05:08 09/07/16 05:08 Intake and Output: 09/07/16 09/07/16 06:59 18:59 Intake Total 2720 960 Output Total 500 Balance 2720 460 - Medications Medications: Current Medications Albuterol/Ipratropium (Duoneb 3 Mg/0.5 Mg (3 Ml) Ud) 3 ml IH [id number] ADDY Last Admin: 09/07/16 11:58 Dose: 3 ml Albuterol/Ipratropium (Duoneb 3 Mg/0.5 Mg (3 Ml) Ud) 3 ml IH Q2H PRN PRN Reason: Shortness of Breath Last Admin: 09/06/16 13:49 Dose: 3 ml Alprazolam (Xanax) 0.25 mg PO BID ADDY PRN Reason: Protocol Stop: 09/12/16 22:16 Last Admin: 09/07/16 09:11 Dose: 0.25 mg Alprazolam (Xanax) 0.25 mg PO Q6 PRN; Protocol PRN Reason: Anxiety Stop: 09/13/16 12:01 Last Admin: 09/07/16 12:21 Dose: 0.25 mg Benzocaine/Menthol (Cepacol Sore Throat) 1 rosalind MT Q2H PRN PRN Reason: Sore Throat Last Admin: 09/07/16 07:57 Dose: 1 rosalind Guaifenesin/Dextromethorphan (Robitussin Dm) 10 ml PO Q4H PRN PRN Reason: Cough Last Admin: 09/07/16 12:13 Dose: 10 ml Ceftriaxone Sodium (Rocephin 1 Gram Ivpb) 1 gm in 100 mls @ 100 mls/hr IVPB DAILY [facility] PRN Reason: Protocol Last Admin: 09/07/16 09:12 Dose: 100 mls/hr Sodium Chloride (Sodium Chloride 0.9%) 1,000 mls @ 100 mls/hr IV .Q10H [facility] Last Admin: 09/07/16 10:46 Dose: 100 mls/hr Lorazepam (Ativan) 1 mg IVP Q4 PRN; Protocol PRN Reason: Anxiety Methylprednisolone (Solu-Medrol) 40 mg IV Q12H [facility] Last Admin: 09/07/16 10:42 Dose: Not Given Montelukast Sodium (Singulair) 10 mg PO HS [facility] Last Admin: 09/06/16 21:21 Dose: 10 mg Nicotine (Nicoderm Cq) 1 patch TD DAILY [facility] Last Admin: 09/07/16 09:11 Dose: 1 patch Pantoprazole Sodium (Protonix Ec Tab) 40 mg PO ACB [facility] Last Admin: 09/07/16 07:56 Dose: 40 mg - Labs Labs: 09/07/16 05:30 09/07/16 05:30 PT 10.3 Seconds (9.9-11.8) 09/05/16 17:25 INR 0.95 (0.93-1.08) 09/05/16 17:25 APTT 26.3 Seconds (23.7-30.8) 09/05/16 17:25 - Constitutional Appears: Non-toxic, No Acute Distress - Head Exam Head Exam: ATRAUMATIC - ENT Exam ENT Exam: Mucous Membranes Moist - Respiratory Exam Respiratory Exam: Wheezes (diffuse expiratory wheezing ). absent: Rales, Rhonchi - Cardiovascular Exam Cardiovascular Exam: REGULAR RHYTHM, +S1, +S2. absent: Gallop, Rubs, Murmur - GI/Abdominal Exam GI & Abdominal Exam: Soft, Normal Bowel Sounds. absent: Distended, Firm, Guarding, Rigid, Tenderness - Extremities Exam Extremities Exam: absent: Pedal Edema, Tenderness - Neurological Exam Neurological Exam: Alert, Awake, Oriented x3 - Psychiatric Exam Psychiatric exam: Normal Affect, Normal Mood - Skin Skin Exam: Dry, Intact, Normal Color, Warm Assessment and Plan - Assessment and Plan (Free Text) Assessment: This is a 46Y F with PMH of COPD previously on home O2 who is admitted for COPD exacerbation. Plan: 1. COPD exacerbation - secondary to tobacco abuse- lost home oxygen, has no PMD - CXR showed no active disease - Will continue rocephin. D/Octaviano zithromax due to prolonged qt interval seen on EKG - Cepachol and Robitussin prn - Duoneb addy and prn - Tapered solumedrol to 40q12, Singulair - Will work with director of casework about getting patient home O2. - Will check procal 2. Tobacco Abuse - Counseled on tobacco cessation - Continue Nicotine patch 3. Cocaine abuse - UDS + for cocaine - CPK trending down - Will start NS@100 - Counseled on drug cessation 4. Hypokalemia- resolved - Will continue to monitor electrolytes and replace as needed DVT ppx: SCDs GI ppx: Protonix case seen, discussed and reviewed with attending. <Louise Cerna - Last Filed: 09/07/16 16:26> Objective - Vital Signs/Intake and Output Vital Signs (last 24 hours): Temp Pulse Resp BP Pulse Ox 97.4 F L 95 H 20 133/86 95 09/07/16 05:08 09/07/16 10:00 09/07/16 05:08 09/07/16 05:08 09/07/16 05:08 Intake and Output: 09/07/16 09/07/16 06:59 18:59 Intake Total 2720 960 Output Total 500 Balance 2720 460 - Medications Medications: Current Medications Albuterol/Ipratropium (Duoneb 3 Mg/0.5 Mg (3 Ml) Ud) 3 ml IH [id number] ADDY Last Admin: 09/07/16 11:58 Dose: 3 ml Albuterol/Ipratropium (Duoneb 3 Mg/0.5 Mg (3 Ml) Ud) 3 ml IH Q2H PRN PRN Reason: Shortness of Breath Last Admin: 09/06/16 13:49 Dose: 3 ml Alprazolam (Xanax) 0.25 mg PO BID ADDY PRN Reason: Protocol Stop: 09/12/16 22:16 Last Admin: 09/07/16 09:11 Dose: 0.25 mg Alprazolam (Xanax) 0.25 mg PO Q6 PRN; Protocol PRN Reason: Anxiety Stop: 09/13/16 12:01 Last Admin: 09/07/16 12:21 Dose: 0.25 mg Benzocaine/Menthol (Cepacol Sore Throat) 1 rosalind MT Q2H PRN PRN Reason: Sore Throat Last Admin: 09/07/16 07:57 Dose: 1 rosalind Guaifenesin/Dextromethorphan (Robitussin Dm) 10 ml PO Q4H PRN PRN Reason: Cough Last Admin: 09/07/16 12:13 Dose: 10 ml Ceftriaxone Sodium (Rocephin 1 Gram Ivpb) 1 gm in 100 mls @ 100 mls/hr IVPB DAILY ADDY PRN Reason: Protocol Last Admin: 09/07/16 09:12 Dose: 100 mls/hr Sodium Chloride (Sodium Chloride 0.9%) 1,000 mls @ 100 mls/hr IV .Q10H ADDY Last Admin: 09/07/16 16:11 Dose: 100 mls/hr Lorazepam (Ativan) 1 mg IVP Q4 PRN; Protocol PRN Reason: Anxiety Methylprednisolone (Solu-Medrol) 40 mg IV Q12H ADDY Last Admin: 09/07/16 10:42 Dose: Not Given Montelukast Sodium (Singulair) 10 mg PO HS ADDY Last Admin: 09/06/16 21:21 Dose: 10 mg Nicotine (Nicoderm Cq) 1 patch TD DAILY [facility] Last Admin: 09/07/16 09:11 Dose: 1 patch Pantoprazole Sodium (Protonix Ec Tab) 40 mg PO ACB [facility] Last Admin: 09/07/16 07:56 Dose: 40 mg - Labs Labs: 09/07/16 05:30 09/07/16 05:30 PT 10.3 Seconds (9.9-11.8) 09/05/16 17:25 INR 0.95 (0.93-1.08) 09/05/16 17:25 APTT 26.3 Seconds (23.7-30.8) 09/05/16 17:25 Attending/Attestation - Attestation I have personally seen and examined this patient.: Yes I have fully participated in the care of the patient.: Yes I have reviewed all pertinent clinical information, including history, physical exam and plan: Yes Notes (Text): I have seen and examined the patient with the resident. This is 46 year old female with history of COPD, oxygen dependent, cocaine abuse, non compliant with follow up / medications due to lack of insurance who got admitted for copd exacerbation. She is still wheezing a lot. Able to talk in small sentences however reports that that she feels much better. Continue duonebs, robitussin and taper solumedrol. DC zithro as patient has prolong QT interval. Will start doxy. Tobacco and cocaine cessation counselling provided. Patient states that she lost her oxygen tank. Will discuss with case preparer and liner. Patient will be referred to [facility] clinic upon discharge. Dr Louise Cerna
[2016-09-08] MEDS: Albuterol-Ipratrop 3 mg / 0.5 (3 ml) UD IH SCH ×4 (00:12→12:02)
[2016-09-08] MEDS: guaiFENesin DM 200 mg-20 mg/10 ml UD PO PRN ×2 (02:05→06:03)
[2016-09-08] MEDS: Sodium Chloride 0.9% 1,000 ML IV SCH (06:08)
[2016-09-08 07:09] LABS: MEAN CELL VOLUME 92.2 fL (80.0-105.0); MEAN CORPUSCULAR HEMOGLOBIN 30.3 pg (25.0-35.0); MEAN CORPUSCULAR HGB CONC 32.8 g/dl (31.0-37.0); RED CELL DISTRIBUTION WIDTH 13.8 % (11.5-14.5); WHITE BLOOD COUNT 9.7 10^3/ul (4.5-11.0)
[2016-09-08 07:26] LABS: ALB/GLOB RATIO 1.1 (1.1-1.8); ALKALINE PHOSPHATASE 47 U/L (38-133); ALT/SGPT 39 U/L (7-56); AST/SGOT 21 U/L (15-39); BILIRUBIN,TOTAL 0.3 mg/dL (0.2-1.3); BLOOD UREA NITROGEN 15 mg/dL (7-21); CALCIUM 8.8 mg/dL (8.4-10.5); CARBON DIOXIDE 27 mmol/L (21-33); CHLORIDE 104 mmol/L (95-110); GFR AFRICAN-AMERICAN > 60; GLUCOSE,RANDOM 101 mg/dL (70-110); POTASSIUM 4.3 mmol/L (3.6-5.0); SODIUM 136 mmol/L (132-148); TOTAL PROTEIN 6.7 g/dL (5.8-8.3)
[2016-09-08] MEDS: Pantoprazole 40 mg EC Tab PO SCH (08:00)
[2016-09-08 08:12] VITALS: BP 131/89; PULSE 73; RESP 21; TEMP 97.9; O2SAT 97
[2016-09-08] MEDS: MethylPREDNISolone 40 mg Vial IV SCH (09:33)
[2016-09-08] MEDS: Albuterol-Ipratrop 3 mg / 0.5 (3 ml) UD IH PRN (10:33)
--- NOTE | 2016-09-08 12:06 | CP.PCM.DIS ---
<Daisy Pierce - Last Filed: 09/08/16 12:03> Provider - Provider Date of Admission: 09/05/16 19:22 Attending physician: Louise Cerna MD Primary care physician: NO PRIMARY CARE PROVIDER Time Spent in preparation of Discharge (in minutes): 45 Diagnosis - Discharge Diagnosis (1) COPD exacerbation Status: Acute (2) Tobacco dependence Status: Chronic Hospital Course - Lab Results Lab Results: Micro Results 09/05/16 19:53 Urine,Clean Catch Urine Culture - Final <10,000 CFU/ML. MULTIPLE SPECIES. PROBABLE CONTAMINATION. Most Recent Lab Values WBC 9.7 10^3/ul (4.5-11.0) D 09/08/16 06:00 RBC 4.23 10^6/uL (3.5-6.1) 09/08/16 06:00 Hgb 12.8 gm/dL (12.0-16.0) 09/08/16 06:00 Hct 39.0 % (36.0-48.0) 09/08/16 06:00 MCV 92.2 fL (80.0-105.0) 09/08/16 06:00 MCH 30.3 pg (25.0-35.0) 09/08/16 06:00 MCHC 32.8 g/dl (31.0-37.0) 09/08/16 06:00 RDW 13.8 % (11.5-14.5) 09/08/16 06:00 Plt Count 253 10^3/uL (120.0-450.0) 09/08/16 06:00 MPV 11.0 fl (7.0-11.0) 09/08/16 06:00 Gran % 87.8 % (50.0-68.0) H 09/06/16 07:57 Lymph % (Auto) 4.9 % (22.0-35.0) L 09/06/16 07:57 [place] % (Auto) 7.2 % (1.0-6.0) H 09/06/16 07:57 Eos % (Auto) 0.0 % (1.5-5.0) L 09/06/16 07:57 Baso % (Auto) 0.1 % (0.0-3.0) 09/06/16 07:57 Gran # 8.30 (1.4-6.5) H 09/06/16 07:57 Lymph # 0.5 (1.2-3.4) L 09/06/16 07:57 [place] # 0.7 (0.1-0.6) H 09/06/16 07:57 Eos # 0.0 (0.0-0.7) 09/06/16 07:57 Baso # 0.01 K/mm3 (0.0-2.0) 09/06/16 07:57 PT 10.3 Seconds (9.9-11.8) 09/05/16 17:25 INR 0.95 (0.93-1.08) 09/05/16 17: APTT 26.3 Seconds (23.7-30.8) 09/05/16 17:25 pO2 156 mm/Hg (30-55) H 09/05/16 17:25 VBG pH 7.40 (7.32-7.43) 09/05/16 17:25 VBG pCO2 47.0 (40-60) 09/05/16 17:25 VBG HCO3 29.1 mmol/l (21-28) H 09/05/16 17:25 VBG Total CO2 30.5 mmol.L (22-28) H 09/05/16 17:25 VBG O2 Sat (Calc) 99.5 % (40-65) H 09/05/16 17:25 VBG Base Excess 3.5 mmol/L (0.0-2.0) H 09/05/16 17:25 VBG Potassium 3.5 mmol/L (3.6-5.2) L 09/05/16 17:25 Sodium 142.0 mmol/L (132-148) 09/05/16 17:25 Chloride 112.0 mmol/L (98-107) H 09/05/16 17:25 Glucose 98 mg/dl (65-105) 09/05/16 17:25 Lactate 0.9 mmol/L (0.7-2.1) 09/05/16 17:25 FiO2 21.0 % 09/05/16 17:25 Sodium 136 mmol/L (132-148) 09/08/16 06:00 Potassium 4.3 mmol/L (3.6-5.0) 09/08/16 06:00 Chloride 104 mmol/L (95-110) 09/08/16 06:00 Carbon Dioxide 27 mmol/L (21-33) 09/08/16 06:00 Anion Gap 9 (10-20) L 09/08/16 06:00 BUN 15 mg/dL (7-21) 09/08/16 06:00 Creatinine 0.7 mg/dL (0.5-1.4) 09/08/16 06:00 Est GFR ( Amer) > 60 09/08/16 06:00 Est GFR (Non-Af Amer) > 60 09/08/16 06:00 Random Glucose 101 mg/dL (70-110) 09/08/16 06:00 Calcium 8.8 mg/dL (8.4-10.5) 09/08/16 06:00 Magnesium 2.2 mg/dL (1.7-2.2) 09/05/16 17:25 Total Bilirubin 0.3 mg/dL (0.2-1.3) 09/08/16 06:00 AST 21 U/L (15-39) 09/08/16 06:00 ALT 39 U/L (7-56) 09/08/16 06:00 Alkaline Phosphatase 47 U/L (38-133) 09/08/16 06:00 Lactate Dehydrogenase 604 U/L (333-699) 09/05/16 17:25 Total Creatine Kinase 313 U/L (35-230) H 09/07/16 06:30 CK-MB (CK-2) 6.1 ng/mL (0.0-3.6) H 09/07/16 06:30 CK-MB (CK-2) % 1.9 % (2.5-3.0) L 09/07/16 06:30 Troponin I < 0.01 ng/mL 09/05/16 17:25 Total Protein 6.7 g/dL (5.8-8.3) 09/08/16 06:00 Albumin 3.6 g/dL (3.0-4.8) 09/08/16 06:00 Globulin 3.1 gm/dL 09/08/16 06:00 Albumin/Globulin Ratio 1.1 (1.1-1.8) 09/08/16 06:00 Procalcitonin < 0.05 NG/ML (0.19-0.49) L 09/07/16 06:30 Venous Blood Potassium 3.5 mmol/L (3.6-5.2) L 09/05/16 17:25 Urine Color Yellow (YELLOW) 09/05/16 19:53 Urine Appearance Clear (CLEAR) 09/05/16 19:53 Urine pH 7.5 (4.7-8.0) 09/05/16 19:53 Ur Specific [place] 1.020 (1.005-1.035) 09/05/16 19:53 Urine Protein Negative mg/dL (<30 mg/dL) 09/05/16 19:53 Urine Glucose (UA) Negative mg/dL (NEGATIVE) 09/05/16 19:53 Urine Ketones Trace mg/dL (NEGATIVE) H 09/05/16 19:53 Urine Blood Negative (NEGATIVE) 09/05/16 19:53 Urine Nitrate Negative (NEGATIVE) 09/05/16 19:53 Urine Bilirubin Negative (NEGATIVE) 09/05/16 19:53 Urine Urobilinogen 0.2 E.U./dL (<1 E.U./dL) 09/05/16 19:53 Ur Leukocyte Esterase Small Miguel/uL (NEGATIVE) H 09/05/16 19:53 Urine RBC Negative /hpf (0-2) 09/05/16 19:53 Urine WBC 1 - 3 /hpf (0-6) 09/05/16 19:53 Ur Epithelial Cells 10 - 12 /hpf (0-5) 09/05/16 19:53 Urine Bacteria Few (NEG) 09/05/16 19:53 Urine HCG, Qual Negative (NEGATIVE) 09/05/16 19:53 Urine Opiates Screen Negative (NEGATIVE) 09/06/16 08:37 Urine Methadone Screen Negative (NEGATIVE) 09/06/16 08:37 Ur Barbiturates Screen Negative (NEGATIVE) 09/06/16 08:37 Ur Phencyclidine Scrn Negative (NEGATIVE) 09/06/16 08:37 Ur Amphetamines Screen Negative (NEGATIVE) 09/06/16 08:37 U Benzodiazepines Scrn Negative (NEGATIVE) 09/06/16 08:37 U Oth Cocaine Metabols Positive (NEGATIVE) H 09/06/16 08:37 U Cannabinoids Screen Negative (NEGATIVE) 09/06/16 08:37 - Hospital Course Hospital Course: 46 year old female with a PMH of COPD who presents to [facility] ER on 09/05/16 with complaints of shortness of breath for the last two days. Patient states that the shortness of breath has been progressively worse, is similar to previous episodes, is associated with some coughing, is worse going up stairs, is better with rest, and is also associated with some chills. Patient denies fever, productive cough, or other symptoms. Patient denies sick contacts or recent travel. On admission, CXR showed no active disease. EKG showed sinus rhythm was possible LA enlargement and QT prolongation. Patient was afebrile and had normal WBC count. Patient was started on antibiotics, IV steroids and breathing treatments for COPD exacerbation. Once procalcitonin was found to be negative, antibiotics were discontinued. Oxygen saturation was assessed at room air and was found to be normal. Patient was not discharged with home oxygen because her room air saturation is 95%. Patient is to follow up with [facility] clinic upon discharge Discussed with patient the adverse effects of tobacco use and recommended cessation. Patient is discharged with the following medications: Ventolin IH, Medrol dose pack, nicotin patch, singulair, robitussin, cepacol, xanax .25 mg PO BID #10 tabs. Medications will be delivered to patient before discharge. Please see MAR for full details. - Date & Time of H&P Date of H&P: 09/08/16 Time of H&P: 12:06 Discharge Exam - Head Exam Head Exam: ATRAUMATIC - Eye Exam Eye Exam: EOMI Pupil Exam: PERRL - ENT Exam ENT Exam: Mucous Membranes Moist - Respiratory Exam Respiratory Exam: Clear to PA & Lateral, NORMAL BREATHING PATTERN, UNREMARKABLE. absent: Accessory Muscle Use, Rales, Rhonchi, Wheezes, Respiratory Distress Additional comments: room air saturation is 95% - Cardiovascular Exam Cardiovascular Exam: REGULAR RHYTHM, RRR, +S1, +S2. absent: Diastolic murmur, Gallop, Rubs, Systolic Murmur - GI/Abdominal Exam GI & Abdominal Exam: Normal Bowel Sounds, Unremarkable. absent: Diminished Bowel Sounds, Distended, Firm, Guarding, Rigid, Soft, Tenderness - Extremities Exam Additional comments: no edema or tenderness - Neurological Exam Neurological exam: Alert, Oriented x3 - Psychiatric Exam Psychiatric exam: Normal Affect, Normal Mood - Skin Skin Exam: Dry, Intact, Normal Color, Warm Discharge Plan - Discharge Medications Prescriptions: Albuterol HFA [Ventolin HFA 90 mcg/actuation (8 g)] 2 puff IH PRN PRN #1 PRN Reason: Shortness Of Breath Alprazolam [Xanax] 0.25 mg PO BID #10 tablet Benzocaine/Menthol [Cepacol Sore Throat] 1 rosalind MT Q2H PRN #30 rosalind PRN Reason: Sore Throat Fluticasone/Salmeterol 250/50 [Advair Diskus] 1 puff IH Q12 #1 puff guaiFENesin/Dextromethorphan [Robitussin DM] 10 ml PO Q4H PRN #1 PRN Reason: Cough Methylprednisolone [Medrol Dose Pack (21 tabs)] See Taper PO DAILY #21 mg Montelukast [Singulair] 10 mg PO HS #30 tab Nicotine 14 mg/24 hr [Nicoderm CQ] 1 patch TD DAILY #10 patch - Follow Up Plan Condition: FAIR Disposition: HOME/ ROUTINE Instructions: How to Stop Smoking (DC), Cigarette Smoking and Your Health (GEN) , COPD (Chronic Obstructive Pulmonary Disease) (DC), Chronic Lung Disease and Infection Prevention (DC) Additional Instructions: Patient is to follow up with [facility] clinic upon discharge Discussed with patient the adverse effects of tobacco use and recommended cessation. Patient is discharged with the following medications: Ventolin IH, Medrol dose pack, nicotin patch, singulair, robitussin, cepacol, xanax .25 mg PO BID #10 tabs. Medications will be delivered to patient before discharge. Patient is not discharged with home oxygen because her room air saturation is 95 % Referrals: PCP,SULTANA [Primary Care Provider] - <Louise Cerna - Last Filed: 09/08/16 13:40> Provider - Provider Date of Admission: 09/05/16 19:22 Attending physician: Louise Cerna MD Primary care physician: SULTANA PRIMARY CARE PROVIDER Hospital Course - Lab Results Lab Results: Micro Results 09/05/16 19:53 Urine,Clean Catch Urine Culture - Final <10,000 CFU/ML. MULTIPLE SPECIES. PROBABLE CONTAMINATION. Most Recent Lab Values WBC 9.7 10^3/ul (4.5-11.0) D 09/08/16 06:00 RBC 4.23 10^6/uL (3.5-6.1) 09/08/16 06:00 Hgb 12.8 gm/dL (12.0-16.0) 09/08/16 06:00 Hct 39.0 % (36.0-48.0) 09/08/16 06:00 MCV 92.2 fL (80.0-105.0) 09/08/16 06:00 MCH 30.3 pg (25.0-35.0) 09/08/16 06:00 MCHC 32.8 g/dl (31.0-37.0) 09/08/16 06:00 RDW 13.8 % (11.5-14.5) 09/08/16 06:00 Plt Count 253 10^3/uL (120.0-450.0) 09/08/16 06:00 MPV 11.0 fl (7.0-11.0) 09/08/16 06:00 Gran % 87.8 % (50.0-68.0) H 09/06/16 07:57 Lymph % (Auto) 4.9 % (22.0-35.0) L 09/06/16 07:57 [place] % (Auto) 7.2 % (1.0-6.0) H 09/06/16 07:57 Eos % (Auto) 0.0 % (1.5-5.0) L 09/06/16 07:57 Baso % (Auto) 0.1 % (0.0-3.0) 09/06/16 07:57 Gran # 8.30 (1.4-6.5) H 09/06/16 07:57 Lymph # 0.5 (1.2-3.4) L 09/06/16 07:57 [place] # 0.7 (0.1-0.6) H 09/06/16 07:57 Eos # 0.0 (0.0-0.7) 09/06/16 07:57 Baso # 0.01 K/mm3 (0.0-2.0) 09/06/16 07:57 PT 10.3 Seconds (9.9-11.8) 09/05/16 17:25 INR 0.95 (0.93-1.08) 09/05/16 17: APTT 26.3 Seconds (23.7-30.8) 09/05/16 17:25 pO2 156 mm/Hg (30-55) H 09/05/16 17:25 VBG pH 7.40 (7.32-7.43) 09/05/16 17:25 VBG pCO2 47.0 (40-60) 09/05/16 17:25 VBG HCO3 29.1 mmol/l (21-28) H 09/05/16:25 VBG Total CO2 30.5 mmol.L (22-28) H 09/05/16 17:25 VBG O2 Sat (Calc) 99.5 % (40-65) H 09/05/16:25 VBG Base Excess 3.5 mmol/L (0.0-2.0) H 09/05/16: VBG Potassium 3.5 mmol/L (3.6-5.2) L 09/05/16 17:25 Sodium 142.0 mmol/L (132-148) 09/05/16: Chloride 112.0 mmol/L (98-107) H 09/05/16 17:25 Glucose 98 mg/dl (65-105) 09/05/16: Lactate 0.9 mmol/L (0.7-2.1) 09/05/16 17: FiO2 21.0 % 09/05/16 17:25 Sodium 136 mmol/L (132-148) 09/08/16 06:00 Potassium 4.3 mmol/L (3.6-5.0) 09/08/16 06:00 Chloride 104 mmol/L (95-110) 09/08/16 06:00 Carbon Dioxide 27 mmol/L (21-33) 09/08/16 06:00 Anion Gap 9 (10-20) L 09/08/16 06:00 BUN 15 mg/dL (7-21) 09/08/16 06:00 Creatinine 0.7 mg/dL (0.5-1.4) 09/08/16 06:00 Est GFR ( Amer) > 60 09/08/16 06:00 Est GFR (Non-Af Amer) > 60 09/08/16 06:00 Random Glucose 101 mg/dL (70-110) 05/09/17 06:00 Calcium 8.8 mg/dL (8.4-10.5) 09/08/16 06:00 Magnesium 2.2 mg/dL (1.7-2.2) 09/05/16 17:25 Total Bilirubin 0.3 mg/dL (0.2-1.3) 09/08/16 06:00 AST 21 U/L (15-39) 09/08/16 06:00 ALT 39 U/L (7-56) 09/08/16 06:00 Alkaline Phosphatase 47 U/L (38-133) 09/08/16 06:00 Lactate Dehydrogenase 604 U/L (333-699) 09/05/16 17:25 Total Creatine Kinase 313 U/L (35-230) H 09/07/16 06:30 CK-MB (CK-2) 6.1 ng/mL (0.0-3.6) H 09/07/16 06:30 CK-MB (CK-2) % 1.9 % (2.5-3.0) L 09/07/16 06:30 Troponin I < 0.01 ng/mL 09/05/16 17:25 Total Protein 6.7 g/dL (5.8-8.3) 09/08/16 06:00 Albumin 3.6 g/dL (3.0-4.8) 09/08/16 06:00 Globulin 3.1 gm/dL 09/08/16 06:00 Albumin/Globulin Ratio 1.1 (1.1-1.8) 09/08/16 06:00 Procalcitonin < 0.05 NG/ML (0.19-0.49) L 09/07/16 06:30 Venous Blood Potassium 3.5 mmol/L (3.6-5.2) L 09/05/16 17:25 Urine Color Yellow (YELLOW) 09/05/16 19:53 Urine Appearance Clear (CLEAR) 09/05/16 19:53 Urine pH 7.5 (4.7-8.0) 09/05/16 19:53 Ur Specific [place] 1.020 (1.005-1.035) 09/05/16 19:53 Urine Protein Negative mg/dL (<30 mg/dL) 09/05/16 19:53 Urine Glucose (UA) Negative mg/dL (NEGATIVE) 09/05/16 19:53 Urine Ketones Trace mg/dL (NEGATIVE) H 09/05/16 19:53 Urine Blood Negative (NEGATIVE) 09/05/16 19:53 Urine Nitrate Negative (NEGATIVE) 09/05/16 19:53 Urine Bilirubin Negative (NEGATIVE) 09/05/16 19:53 Urine Urobilinogen 0.2 E.U./dL (<1 E.U./dL) 09/05/16 19:53 Ur Leukocyte Esterase Small Miguel/uL (NEGATIVE) H 09/05/16 19:53 Urine RBC Negative /hpf (0-2) 09/05/16 19:53 Urine WBC 1 - 3 /hpf (0-6) 09/05/16 19:53 Ur Epithelial Cells 10 - 12 /hpf (0-5) 09/05/16 19:53 Urine Bacteria Few (NEG) 09/05/16 19:53 Urine HCG, Qual Negative (NEGATIVE) 09/05/16 19:53 Urine Opiates Screen Negative (NEGATIVE) 09/06/16 08:37 Urine Methadone Screen Negative (NEGATIVE) 09/06/16 08:37 Ur Barbiturates Screen Negative (NEGATIVE) 09/06/16 08:37 Ur Phencyclidine Scrn Negative (NEGATIVE) 09/06/16 08:37 Ur Amphetamines Screen Negative (NEGATIVE) 09/06/16 08:37 U Benzodiazepines Scrn Negative (NEGATIVE) 09/06/16 08:37 U Oth Cocaine Metabols Positive (NEGATIVE) H 09/06/16 08:37 U Cannabinoids Screen Negative (NEGATIVE) 09/06/16 08:37 Attending/Attestation - Attestation I have personally seen and examined this patient.: Yes I have fully participated in the care of the patient.: Yes I have reviewed all pertinent clinical information, including history, physical exam and plan: Yes Notes (Text): I have seen and examined the patient with the resident. This is 46 year old female with history of COPD, oxygen dependent, cocaine abuse, non compliant with follow up / medications due to lack of insurance who got admitted for copd exacerbation. Patient has significantly improved today. Her wheezing has resolved. No use of accessory muscles. Able to talk in complete sentences. Oxygen sats are 95% on RA. Will give her ventolin HFA, medrol dose pack and advair. Procal is low. She does not qualify for home oxygen. Tobacco and cocaine cessation counselling provided. Patient will be referred to [facility] clinic upon discharge. Dr Louise Cerna
== END 2016-09-08 12:52 | disposition home or self-care (01) | DRG 192 ==
LOC: ED 17:05 → ERH 19:22 → 2RNO 20:32 → 3RSO 09-07 11:57
PROVIDERS: ADMIT Internal Medicine; ATTEND Hospitalist
DX: J44.1 Chronic obstructive pulmonary disease with (acute) exacerbation (principal); Z99.81 Dependence on supplemental oxygen; E87.6 Hypokalemia; F14.10 Cocaine abuse, uncomplicated; F17.210 Nicotine dependence, cigarettes, uncomplicated; Z91.14 Patient's other noncompliance with medication regimen; Z91.19 Patient's noncompliance with other medical treatment and regimen

== ENCOUNTER 2017-05-20 10:18 | Emergency (ER) | payer MEDICAID, MEDICARE, OTHER ==
[2017-05-20 10:25] VITALS: BMI 31.1
[2017-05-20] MEDS ORDERED: Sodium Chloride 0.9% 1,000 ML IV ONE (10:36)
--- NOTE | 2017-05-20 10:39 | ED PDOC ---
Arrival/HPI - General Chief Complaint: Shortness Of Breath Time Seen by Provider: 05/20/17 10:31 Historian: Patient - History of Present Illness Narrative History of Present Illness (Text): 05/20/17 10:36 A 46 year old female, whose past medical history includes asthma, emphysema, and [employer], brought into the emergency department by EMS complaining of shortness of breath for the past 3 days. As per EMS, patient received Solumedrol 125 mg and 2 Duonebs on the field. Patient notes a subjective fever but denies any nausea, vomiting, abdominal pain, chest pain or any other complaints. Patient did not receive the flu shot. PMD: Dr. Mckinley Time/Duration: Other (3 days) Symptom Course: Unchanged Context: Home Past Medical History - Provider Review Nursing Documentation Reviewed: Yes - Infectious Disease Hx of Infectious Diseases: None - Tetanus Immunization Tetanus Immunization: Unknown - Cardiac Hx Cardiac Disorders: Yes Hx Hypertension: Yes - Pulmonary Hx Chronic Obstructive Pulmonary Disease (COPD): Yes - Neurological Hx Neurological Disorder: No - HEENT Hx HEENT Disorder: No - Renal Hx Renal Disorder: No - Endocrine/Metabolic Hx Endocrine Disorders: No - Hematological/Oncological Hx Blood Disorders: No - Integumentary Hx Dermatological Disorder: Yes Other/Comment: tatoo - Musculoskeletal/Rheumatological Hx Falls: No - Gastrointestinal Hx Gastrointestinal Disorders: No - Genitourinary/Gynecological Hx Genitourinary Disorders: No - Psychiatric Hx Psychophysiologic Disorder: Yes Hx Anxiety: Yes Hx Substance Use: No - Past Surgical History Past Surgical History: No Previous - Surgical History Hx Section: Yes - Anesthesia Hx Anesthesia: Yes Hx Anesthesia Reactions: No Hx Malignant Hyperthermia: No - Suicidal Assessment Feels Threatened In Home Enviroment: No Family/Social History - Physician Review Nursing Documentation Reviewed: Yes Family/Social History: No Known Family HX Smoking Status: Current Some Days Smoker Hx Alcohol Use: No Hx Substance Use: No Hx Substance Use Treatment: No Allergies/Home Meds Allergies/Adverse Reactions: Allergies Influenza Virus Vaccines Allergy (Verified 09/05/16 21:11) SWELLING Home Medications: Home Meds Medication Instructions Recorded Confirmed Albuterol 0.5% [Albuterol 0.5% 3 ml IH PRN PRN 05/31/16 05/20/17 Inhal Peggy (5 mg/ ml) 20 ml] Review of Systems - Physician Review All systems were reviewed & negative as marked: Yes - Review of Systems Constitutional: Fevers Respiratory: SOB Cardiovascular: absent: Chest Pain Gastrointestinal: absent: Abdominal Pain, Nausea, Vomiting Physical Exam Vital Signs Temp Pulse Resp BP Pulse Ox 05/20/17 13:45 99.9 F H 72 18 123/61 98 05/20/17 13:30 77 18 118/70 98 05/20/17 13:15 82 18 122/63 100 05/20/17 13:00 86 19 102/71 98 05/20/17 12:45 91 H 18 118/68 98 05/20/17 12:44 100.8 F H 83 18 118/68 98 05/20/17 12:17 100.8 F H 05/20/17 10:37 100.8 F H 95 H 20 116/72 96 Appearance: Positive for: Well-Appearing, Non-Toxic, Comfortable Pain Distress: None Mental Status: Positive for: Alert and Oriented X 3 - Systems Exam Head: Present: Atraumatic, Normocephalic Pupils: Present: PERRL Extroacular Muscles: Present: EOMI Conjunctiva: Present: Normal Mouth: Present: Moist Mucous Membranes Neck: Present: Normal Range of Motion Respiratory/Chest: Present: Good Air Exchange, Rhonchi. No: Respiratory Distress, Accessory Muscle Use Cardiovascular: Present: Regular Rate and Rhythm, Normal S1, S2. No: Murmurs Abdomen: Present: Normal Bowel Sounds. No: Tenderness, Distention, Peritoneal Signs Upper Extremity: Present: Normal Inspection. No: Cyanosis, Edema Lower Extremity: Present: Normal Inspection. No: Edema Neurological: Present: GCS=15, CN II-XII Intact, Speech Normal Skin: Present: Warm (to touch), Dry, Normal Color. No: Rashes Psychiatric: Present: Alert, Oriented x 3, Normal Insight, Normal Concentration Medical Decision Making ED Course and Treatment: 05/20/17 10:36 Impression: A 46 year old female with shortness of breath Plan: -- Chest xray -- EKG -- Labs -- Blood, Sputum and Urine cultures -- Urinalysis -- Rapid flu -- Tylenol and IV fluids -- Reassess and disposition Progress Notes: EKG shows NSR at [address]/T wave changes. Interpreted by me. - Lab Interpretations Lab Results: 05/20/17 11:17 05/20/17 11:17 Lab Results 05/20/17 12:40: Influenza Typ A,B (EIA) Pos for influenza a H 05/20/17 12:40: Urine Color Yellow, Urine Appearance Clear, Urine pH 7.0, Ur Specific [place] <= 1.005, Urine Protein Negative, Urine Glucose (UA) Negative, Urine Ketones 15 H, Urine Blood Negative, Urine Nitrate Negative, Urine Bilirubin Negative, Urine Urobilinogen 0.2, Ur Leukocyte Esterase Negative 05/20/17 11:48: pCO2 38, pO2 55.0 L, HCO3 25.2, ABG pH 7.43, ABG Total CO2 26.4 , ABG O2 Saturation 92.0 L, ABG Base Excess 1.0, ABG Potassium 3.7, Glucose 140 H, Lactate 0.6 L, FiO2 21.0, Sodium 132.0, Chloride 102.0, Arterial Blood Potassium 3.7 05/20/17 11:17: Sodium 129 L, Potassium 3.9, Chloride 96 L, Carbon Dioxide 24, Anion Gap 12, BUN 12, Creatinine 0.8, Est GFR ( Amer) > 60, Est GFR (Non- Af Amer) > 60, Random Glucose 140 H, Calcium 8.8, Phosphorus 3.2, Magnesium 1.9 , Total Bilirubin 0.4, AST 29, ALT 37, Alkaline Phosphatase 54, Troponin I < 0.01, NT-Pro-B Natriuret Pep 443, Total Protein 6.8, Albumin 3.9, Globulin 2.9, Albumin/Globulin Ratio 1.4 05/20/17 11:17: PT 12.2, INR 1.07, APTT 29.4 05/20/17 11:17: WBC 7.0 D, RBC 4.40, Hgb 13.1, Hct 40.4, MCV 91.8, MCH 29.8, MCHC 32.4, RDW 13.9, Plt Count 210, MPV 11.2 H, Gran % 90.1 H, Lymph % (Auto) 4.8 L, [place] % (Auto) 3.7, Eos % (Auto) 1.0 L, Baso % (Auto) 0.4, Gran # 6.32, Lymph # 0.3 L, [place] # 0.3, Eos # 0.1, Baso # 0.03, Neutrophils % (Manual) 96 H, Lymphocytes % (Manual) 2 L, Monocytes % (Manual) 2, Platelet Evaluation Normal - RAD Interpretation Radiology Orders: 05/20/17 10:37 CHEST PORTABLE [RAD] Stat - Medication Orders Current Medication Orders: Acetaminophen (Tylenol 325mg Tab) 975 mg PO ONCE PRN PRN Reason: Fever >100.4 F Last Admin: 05/20/17 11:17 Dose: 975 mg [facility] Pain/Vitals Document 05/20/17 11:17 [place] (Rec: 05/20/17 11:[id number] Pain Reassessment Is This A Pain ReAssessment? Yes Sleep Is patient sleeping during reassessment? No Presence of Pain Presence of Pain Yes Pain Scale Used Pain Scale Used Numeric Location Pain Location Body Site Back Description Intermittent Intensity 7 Scale Used Numeric Re-Assess: [facility] Pain/Vitals Document 05/20/17 12:17 [place] (Rec: 05/20/17 13:08 [place] [id number]) Pain Reassessment Is This A Pain ReAssessment? Yes Sleep Is patient sleeping during reassessment? No Presence of Pain Presence of Pain Yes Location Pain Location Body Site Back Vitals Temperature (97.6 F-99.6 F) 100.8 F Temperature Source Rectal Sodium Chloride (Sodium Chloride 0.9%) 1,000 mls @ 150 mls/hr IV .[id number] RUFINA Last Admin: 05/20/17 12:26 Dose: 150 mls/hr eMAR Start Stop Document 05/20/17 12:26 [place] (Rec: 05/20/17 12:[id number] Intravenous Solution Start Date 05/20/17 Start Time 12:30 Oseltamivir Phosphate (Tamiflu Cap) 75 mg PO ONCE ONE PRN Reason: Protocol Stop: 05/20/17 14:17 Discontinued Medications Guaifenesin (Robitussin) 100 mg PO ONCE ONE Stop: 05/20/17 12:48 Last Admin: 05/20/17 13:01 Dose: 100 mg Sodium Chloride (Sodium Chloride 0.9%) 1,000 mls @ 2,000 mls/hr IV .Q30M ONE Stop: 05/20/17 11:05 Last Admin: 05/20/17 11:26 Dose: 2,000 mls/hr eMAR Start Stop Document 05/20/17 11:26 SARAH (Rec: 05/20/17 11:26 SARAH [id number]) Intravenous Solution Start Date 05/20/17 Start Time 11:26 - PA / DRY WALL APPLICATOR / Resident Statement MD/DO has reviewed & agrees with the documentation as recorded. - Scribe Statement The provider has reviewed the documentation as recorded by the Scribe Lila Huntley Provider Scribe Attestation: All medical record entries made by the Scribe were at my direction and personally dictated by me. I have reviewed the chart and agree that the record accurately reflects my personal performance of the history, physical exam, medical decision making, and the department course for this patient. I have also personally directed, reviewed, and agree with the discharge instructions and disposition. Disposition/Present on Arrival - Present on Arrival Any Indicators Present on Arrival: No History of DVT/PE: No History of Uncontrolled Diabetes: No Urinary Catheter: No History of Decub. Ulcer: No History Surgical Site Infection Following: None - Disposition Have Diagnosis and Disposition been Completed?: Yes Diagnosis: Influenza A Disposition: HOME/ ROUTINE Disposition Time: 14:18 Patient Plan: Discharge Condition: GOOD Discharge Instructions (ExitCare): H1N1 Influenza (ED) Additional Instructions: Amee- So Sorry, but this is the flu. Tamiflu may make it less severe and decrease the longevity of your symptoms.... but it is going to have to run it's course. Tylenol for fever. Motrin for Bodyaches. Timiflu is for five days only. Follow up with your doctor next week. Return to us if worse or problems. Best- Dr. Librado James Referrals: Patria Mckinley MD [Primary Care Provider] - Follow up with primary Forms: [employer] (L[place]uanian)
[2017-05-20] MEDS: Sodium Chloride 0.9% 1,000 ML IV SCH ×2 (11:21→12:26)
--- NOTE | 2017-05-20 11:31 | RAD ---
HISTORY: Sepsis Patient COMPARISON: 09/05/2016 FINDINGS: LUNGS: No active pulmonary disease. PLEURA: No significant pleural effusion identified, no pneumothorax apparent. CARDIOVASCULAR: Normal. OSSEOUS STRUCTURES: No significant abnormalities. VISUALIZED UPPER ABDOMEN: Normal. OTHER FINDINGS: None. IMPRESSION: No active disease.
[2017-05-20 11:51] LABS: ARTERIAL BLOOD GAS HCO3 25.2 mmol/L (21-28); ARTERIAL BLOOD GAS PCO2 38 mm/Hg (35-45); ARTERIAL BLOOD GAS PH 7.43 (7.35-7.45); ARTERIAL BLOOD GAS TCO2 26.4 mmol.L (22-28)
[2017-05-20 11:51] LABS: INR 1.07 (0.93-1.08); PARTIAL THROMBOPLASTIN TIME 29.4 Seconds (25.1-36.5); PROTHROMBIN TIME 12.2 SECONDS (9.4-12.5)
[2017-05-20 11:52] LABS: ALB/GLOB RATIO 1.4 (1.1-1.8); ALBUMIN 3.9 g/dL (3.0-4.8); ALT/SGPT 37 U/L (7-56); AST/SGOT 29 U/L (14-36); BLOOD UREA NITROGEN 12 mg/dL (7-21); CALCIUM 8.8 mg/dL (8.4-10.5); GFR AFRICAN-AMERICAN > 60; GFR NON-AFRICAN AMERICAN > 60; MAGNESIUM 1.9 mg/dL (1.7-2.2)
[2017-05-20 11:56] LABS: BASO # 0.03 K/mm3 (0.0-2.0); BASO % 0.4 % (0.0-3.0); EOS # 0.1 (0.0-0.7); GRAN # 6.32 (1.4-6.5); GRAN % 90.1 % (50.0-68.0); HEMOGLOBIN 13.1 g/dL (12.0-16.0); LYMPH # 0.3 (1.2-3.4); LYMPH % 4.8 % (22.0-35.0); MEAN CELL VOLUME 91.8 fl (80.0-105.0); MEAN CORPUSCULAR HEMOGLOBIN 29.8 pg (25.0-35.0); MEAN CORPUSCULAR HGB CONC 32.4 g/dl (31.0-37.0); MEAN PLATELET VOLUME 11.2 fl (7.0-11.0); MONO # 0.3 (0.1-0.6); MONO % 3.7 % (1.0-6.0); PLATELET COUNT 210 10^3/uL (120.0-450.0); RED CELL DISTRIBUTION WIDTH 13.9 % (11.5-14.5)
[2017-05-20 11:58] LABS: B-TYPE NATRIURETIC PEPTIDE 443 pg/mL (0-450)
[2017-05-20 12:18] LABS: TROPONIN I < 0.01 ng/mL
[2017-05-20 12:28] LABS: LYMPHOCYTE 2 % (22.0-35.0); MONOCYTE 2 % (1.0-6.0); NEUTROPHIL 96 % (50.0-70.0); PLATELET ESTIMATE NORMAL (NORMAL)
[2017-05-20] MEDS ORDERED: guaiFENesin 100 mg/5 ml Syrup UD PO ONE (12:47)
[2017-05-20 12:53] LABS: URINE BILIRUBIN NEGATIVE (NEGATIVE); URINE BLOOD NEGATIVE (NEGATIVE); URINE GLUCOSE (UA) NEGATIVE (NEGATIVE); URINE LEUKOCYTE ESTERASE NEGATIVE Leu/uL (NEGATIVE); URINE NITRATE NEGATIVE (NEGATIVE); URINE PROTEIN NEGATIVE mg/dL (<30 mg/dL); URINE UROBILINOGEN 0.2 E.U./dL (<1 E.U./dL)
[2017-05-20 13:00] LABS: URINE APPEARANCE CLEAR (CLEAR); URINE COLOR YELLOW (YELLOW)
[2017-05-20 13:41] VITALS: RESP 18
[2017-05-20 13:55] VITALS: BP 123/61
[2017-05-20 15:48] VITALS: PULSE 78; TEMP 99; O2SAT 99
--- NOTE | 2017-05-20 16:55 | CARD ---
APPROVED REPORT EKG Measurement Heart [id number] <Conclusion> Sinus rhythm with short [place] Smallq waves 2,3,F
== END 2017-05-20 15:40 | disposition home or self-care (01) ==
LOC: ED 10:18
DX: J10.1 Influenza due to other identified influenza virus with other respiratory manifestations (principal); I10 Essential (primary) hypertension; J44.9 Chronic obstructive pulmonary disease, unspecified
CPT/HCPCS: 71045; 80053; 81003; 82803; 83735; 83880; 84100; 84484; 85025; 85610; 85730; 87040; 87086; 87804; 93005; 99285; J7040

== ENCOUNTER 2017-12-05 09:54 | Emergency (ER) | payer SELFPAY ==
[2017-12-05 09:55] VITALS: BMI 31.1
[2017-12-05 10:11] VITALS: TEMP 98.4
--- NOTE | 2017-12-05 10:19 | ED PDOC ---
Arrival/HPI - General Historian: Patient - History of Present Illness Time/Duration: 24 hours Symptom Onset: Gradual Symptom Course: Unchanged Quality: Tightness - General Chief Complaint: Shortness Of Breath Time Seen by Provider: 12/05/17 09:59 - History of Present Illness Narrative History of Present Illness (Text): 12/05/17 10:24 Patient is a 47 year old female with a past medical history of COPD presenting to the emergency room with a complaint of chest tightness and SOB. Patient states, "I think I may have over did it with the cigarettes." She reports that she lost her insurance and currently does not have an albuterol inhaler. She has not been treating her COPD. She is feeling well but just wanted to come in for a breathing treatment to help her feel better. She has no other complaints at this time stating she feels "great". Denies fevers, chills, nausea, vomiting , chest pain, palpitations, numbness or tingling. (JenifferMaynor) Past Medical History - Provider Review Nursing Documentation Reviewed: Yes - Infectious Disease Hx of Infectious Diseases: None - Tetanus Immunization Tetanus Immunization: Unknown - Reproductive Menopause: Yes - Cardiac Hx Cardiac Disorders: Yes Hx Hypertension: Yes - Pulmonary Hx Respiratory Disorders: Yes Hx Chronic Obstructive Pulmonary Disease (COPD): Yes - Neurological Hx Neurological Disorder: No - HEENT Hx HEENT Disorder: No - Renal Hx Renal Disorder: No - Endocrine/Metabolic Hx Endocrine Disorders: No - Hematological/Oncological Hx Blood Disorders: No - Integumentary Hx Dermatological Disorder: No - Musculoskeletal/Rheumatological Hx Musculoskeletal Disorders: Yes Hx Arthritis: Yes - Gastrointestinal Hx Gastrointestinal Disorders: No - Genitourinary/Gynecological Hx Genitourinary Disorders: No - Psychiatric Hx Psychophysiologic Disorder: Yes Hx Anxiety: Yes Hx Substance Use: No - Past Surgical History Past Surgical History: No Previous - Surgical History Hx Section: Yes - Anesthesia Hx Anesthesia: Yes Hx Anesthesia Reactions: No Hx Malignant Hyperthermia: No - Suicidal Assessment Feels Threatened In Home Enviroment: No Family/Social History - Physician Review Nursing Documentation Reviewed: Yes Family/Social History: Hypertension (father), Other (COPD - father) Smoking Status: Current Some Days Smoker Hx Alcohol Use: No Hx Substance Use: No Hx Substance Use Treatment: No Allergies/Home Meds Allergies/Adverse Reactions: Allergies Influenza Virus Vaccines Allergy (Verified 12/05/17 10:05) SWELLING Home Medications: Home Meds Medication Instructions Recorded Confirmed Budesonide/Formoterol Fumarate 2 puff NEB BID 12/05/17 12/05/17 [Symbicort 160-4.5 Mcg Inhaler] Review of Systems - Physician Review All systems were reviewed & negative as marked: Yes - Review of Systems Constitutional: Normal. absent: Fatigue, Fevers Eyes: Normal ENT: Normal Respiratory: SOB, Other (chest tightness). absent: Wheezing Cardiovascular: Normal. absent: Chest Pain, Palpitations, Edema Gastrointestinal: Normal. absent: Abdominal Pain, Constipation, Diarrhea, Nausea, Vomiting Musculoskeletal: Normal Skin: Normal. absent: Rash Neurological: Normal. absent: Headache, Dizziness Endocrine: Normal. absent: Diaphoresis Psychiatric: Normal Physical Exam Vital Signs Reviewed: Yes Temperature: Afebrile Blood Pressure: Normal Pulse: Regular Respiratory Rate: Normal Appearance: Positive for: Well-Appearing, Non-Toxic, Comfortable Pain Distress: None Mental Status: Positive for: Alert and Oriented X 3 - Systems Exam Head: Present: Atraumatic, Normocephalic Extroacular Muscles: Present: EOMI Conjunctiva: Present: Normal Mouth: Present: Moist Mucous Membranes Nose (External): Present: Atraumatic Neck: Present: Normal Range of Motion. No: JVD, Lymphadenopathy Respiratory/Chest: Present: Clear to Auscultation, Good Air Exchange. No: Respiratory Distress, Accessory Muscle Use, Wheezes, Decreased Breath Sounds, Rales, Rhonchi, Tachypneic, Tender to Palpation Cardiovascular: Present: Regular Rate and Rhythm, Normal S1, S2. No: Murmurs Upper Extremity: Present: Normal Inspection, NORMAL PULSES. No: Cyanosis, Edema Lower Extremity: Present: Normal Inspection, NORMAL PULSES. No: Edema, CALF TENDERNESS Neurological: Present: GCS=15, Speech Normal, Motor Func Grossly Intact Skin: Present: Warm, Dry, Normal Color. No: Rashes Psychiatric: Present: Alert, Oriented x 3, Normal Insight, Normal Concentration Vital Signs Temp Pulse Resp BP Pulse Ox 12/05/17 10:26 18 98 12/05/17 10:07 98.4 F 67 22 112/68 97 Medical Decision Making Re-evaluation Time: 10:54 Reassessment Condition: Re-examined, Improving,but remains with symptoms ED Course and Treatment: 12/05/17 11:01 Seen and examined with the resident. Our history and physical exam reveals a woman who continues to smoke with COPD and ran out of her inhalers. She does not appear to be in any distress. Her lungs are clear post treatment. (Surinder Nagy) 12/05/17 10:40 Vital signs normal, no wheezing, resting comfortably, speaking in full sentences , laughing and talking with staff Duoneb No blood work indicated at this time. 12/05/17 10:54 Patient states she is breathing much better. Patient counseled on importance of discontinuing cigarettes. She stated she did not care and will not stop. She is requesting an inhaler to go home with. (Maynor Swift) - Medication Orders Current Medication Orders: Discontinued Medications Albuterol/Ipratropium (Duoneb 3 Mg/0.5 Mg (3 Ml) Ud) 3 ml IH STAT STA Stop: 12/05/17 10:24 Last Admin: 12/05/17 10:29 Dose: 3 ml Disposition/Present on Arrival - Present on Arrival Any Indicators Present on Arrival: No History of DVT/PE: No History of Uncontrolled Diabetes: No Urinary Catheter: No History of Decub. Ulcer: No History Surgical Site Infection Following: None - Disposition Have Diagnosis and Disposition been Completed?: Yes Disposition Time: 11:02 Patient Plan: Discharge - Disposition Diagnosis: COPD exacerbation Disposition: HOME/ ROUTINE Condition: IMPROVED Discharge Instructions (ExitCare): Exacerbation of COPD (DC) Additional Instructions: Instructed patient about importance of discontinuing smoking as this will exacerbate and worsen her COPD. If patient experiences new or worsening symptoms, please go directly to the nearest Prescriptions: Albuterol HFA [Ventolin HFA 90 mcg/actuation (8 g)] 2 puff IH [id number] PRN #1 puff PRN Reason: Shortness Of Breath Forms: [employer] (Swedish)
[2017-12-05] MEDS ORDERED: Albuterol-Ipratrop 3 mg / 0.5 (3 ml) UD IH STA (10:23)
[2017-12-05 10:27] VITALS: RESP 18
[2017-12-05 11:05] VITALS: BP 131/79; PULSE 75; O2SAT 96
== END 2017-12-05 11:21 | disposition home or self-care (01) ==
LOC: ED 09:54
DX: J44.1 Chronic obstructive pulmonary disease with (acute) exacerbation (principal); I10 Essential (primary) hypertension

== ENCOUNTER 2018-02-08 18:43 | Emergency (ER) | payer SELFPAY ==
[2018-02-08 18:43] VITALS: BMI 31.1
--- NOTE | 2018-02-08 19:07 | ED PDOC ---
Arrival/HPI - General Time Seen by Provider: 02/08/18 18:50 Historian: Patient - History of Present Illness Narrative History of Present Illness (Text): 02/08/18 19:00 47 year old female, with past medical history of COPD, presents to the Emergency Department complaining of difficulty breathing since today. Patient informs similar symptoms in the past consistent with COPD exacerbation. She reports that she cannot afford albuterol so has not been taking any medication. Patient reports associated productive cough but denies any fever, chills, dyspnea on exertion or sore throat. Patient denies any nausea, vomiting, diarrhea, abdominal pain, chest pain, neck pain, back pain, headache, dizziness, vaginal bleeding or discharge, urinary output changes, changes in bowel movement or any other complaints. Patient admits to persistent tobacco use. Time/Duration: 24 hours Symptom Onset: Gradual Symptom Course: Unchanged Activities at Onset: Light Context: Home Past Medical History - Provider Review Nursing Documentation Reviewed: Yes - Infectious Disease Hx of Infectious Diseases: None - Tetanus Immunization Tetanus Immunization: Unknown - Cardiac Hx Cardiac Disorders: Yes Hx Hypertension: Yes - Pulmonary Hx Respiratory Disorders: Yes Hx Chronic Obstructive Pulmonary Disease (COPD): Yes - Neurological Hx Neurological Disorder: No - HEENT Hx HEENT Disorder: No - Renal Hx Renal Disorder: No - Endocrine/Metabolic Hx Endocrine Disorders: No - Hematological/Oncological Hx Blood Disorders: No - Integumentary Hx Dermatological Disorder: No - Musculoskeletal/Rheumatological Hx Musculoskeletal Disorders: Yes Hx Arthritis: Yes - Gastrointestinal Hx Gastrointestinal Disorders: No - Genitourinary/Gynecological Hx Genitourinary Disorders: No - Psychiatric Hx Psychophysiologic Disorder: Yes Hx Anxiety: Yes Hx Substance Use: No - Past Surgical History Past Surgical History: No Previous - Surgical History Hx Section: Yes - Anesthesia Hx Anesthesia: Yes Hx Anesthesia Reactions: No Hx Malignant Hyperthermia: No - Suicidal Assessment Feels Threatened In Home Enviroment: No Family/Social History - Physician Review Nursing Documentation Reviewed: Yes Family/Social History: No Known Family HX Smoking Status: Current Some Days Smoker Hx Alcohol Use: No Hx Substance Use: No Hx Substance Use Treatment: No Allergies/Home Meds Allergies/Adverse Reactions: Allergies Influenza Virus Vaccines Allergy (Verified 12/05/17 10:05) SWELLING Home Medications: Home Meds Medication Instructions Recorded Confirmed Budesonide/Formoterol Fumarate 2 puff NEB BID 12/05/17 12/05/17 [Symbicort 160-4.5 Mcg Inhaler] Review of Systems - Review of Systems Constitutional: absent: Fevers Eyes: absent: Vision Changes ENT: absent: Hearing Changes, Sore Throat Respiratory: Cough. absent: SOB Cardiovascular: absent: Chest Pain, DIAZ Gastrointestinal: absent: Abdominal Pain, Constipation, Diarrhea, Nausea, Vomiting Genitourinary Female: absent: Dysuria, Vaginal Bleeding, Vaginal Discharge Musculoskeletal: absent: Back Pain, Neck Pain Neurological: absent: Headache, Dizziness Psychiatric: absent: Anxiety, Depression Physical Exam Vital Signs Reviewed: Yes Temperature: Afebrile Blood Pressure: Normal Pulse: Regular Respiratory Rate: Normal Appearance: Positive for: Well-Appearing, Non-Toxic, Comfortable Pain Distress: None Mental Status: Positive for: Alert and Oriented X 3 - Systems Exam Head: Present: Atraumatic, Normocephalic Pupils: Present: PERRL Extroacular Muscles: Present: EOMI Conjunctiva: Present: Normal Mouth: Present: Moist Mucous Membranes Neck: Present: Normal Range of Motion Respiratory/Chest: Present: Wheezes (wheezes at the bases bilaterally. ), Decreased Breath Sounds (decreased air entry bilaterally.). No: Respiratory Distress, Accessory Muscle Use Cardiovascular: Present: Regular Rate and Rhythm, Normal S1, S2. No: Murmurs Abdomen: No: Tenderness, Distention, Peritoneal Signs Back: Present: Normal Inspection Upper Extremity: Present: Normal Inspection. No: Cyanosis, Edema Lower Extremity: Present: Normal Inspection. No: Edema Neurological: Present: GCS=15, CN II-XII Intact, Speech Normal Skin: Present: Warm, Dry, Normal Color. No: Rashes Psychiatric: Present: Alert, Oriented x 3, Normal Insight, Normal Concentration Medical Decision Making ED Course and Treatment: 02/08/18 19:00 Impression: 47 year old female presents to the Emergency Department complaining of productive cough and difficulty breathing. Differential Diagnosis included but are not limited to: COPD exacerbation Plan: -- Chest X-ray -- Solumedrol -- Duoneb -- Reassess and disposition Prior Visits: Notes and results from previous visits were reviewed. Progress Notes: 02/08/18 19:00 EKG: Ordered, reviewed, and independently interpreted the EKG. Rate : 72 BPM Rhythm : NSR Interpretation : No ST-segment elevations or depressions, no T-wave inversions, normal intervals. 02/08/18 19:42 Cxray negative as read by me. Wheezing resolved and improved air entry after duonebs. Will dc with steroids and albuterol. Instructed patient to look into $4 medication programs 02/08/18 19:46 - RAD Interpretation Radiology Orders: 02/08/18 18:56 CHEST PORTABLE [RAD] Stat - EKG Interpretation Interpreted by ED Physician: Yes Type: 12 lead EKG - Medication Orders Current Medication Orders: Albuterol/Ipratropium (Duoneb 3 Mg/0.5 Mg (3 Ml) Ud) 3 ml IH Q15M RUFINA Stop: 02/08/18 19:31 Discontinued Medications Methylprednisolone (Solu-Medrol) 125 mg IVP STAT STA Stop: 02/08/18 18:57 - Scribe Statement The provider has reviewed the documentation as recorded by the Scribe Yeyo Wong. All medical record entries made by the Scribe were at my direction and personally dictated by me. I have reviewed the chart and agree that the record accurately reflects my personal performance of the history, physical exam, medical decision making, and the department course for this patient. I have also personally directed, reviewed, and agree with the discharge instructions and disposition. Disposition/Present on Arrival - Present on Arrival Any Indicators Present on Arrival: No History of DVT/PE: No History of Uncontrolled Diabetes: No Urinary Catheter: No History Surgical Site Infection Following: None - Disposition Have Diagnosis and Disposition been Completed?: Yes Diagnosis: COPD exacerbation Disposition: HOME/ ROUTINE Disposition Time: 19:42 Patient Plan: Discharge Patient Problems: Current Active Problems Problem Status Onset COPD exacerbation Acute Condition: GOOD Discharge Instructions (ExitCare): Chronic Obstructive Pulmonary Disease (COPD), Including Emphysema, Quitting Smoking for Older Adults, Risk Factors for COPD Additional Instructions: Follow-up with PMD within 2 days. Return to ED if condition worsens. Take full course of steroids. Use albuterol as needed. Prescriptions: Albuterol HFA [Ventolin HFA 90 mcg/actuation (8 g)] 2 puff IH [id number] #1 puff Albuterol 0.083% [Albuterol 0.083% Inhal Peggy (2.5 mg/3 ml) UD] 2.5 mg IH Q6 PRN #100 neb PRN Reason: Wheezing Azithromycin 250 mg PO DAILY #4 tablet Benzonatate [Tessalon Perles] 100 mg PO TID #30 sgl predniSONE [predniSONE Tab] 60 mg PO DAILY #9 tab
[2018-02-08 19:14] VITALS: RESP 18; TEMP 98.2
[2018-02-08] MEDS: Albuterol-Ipratrop 3 mg / 0.5 (3 ml) UD IH SCH (19:32)
[2018-02-08 23:39] VITALS: BP 123/74; PULSE 70; O2SAT 100
--- NOTE | 2018-02-09 06:29 | CARD ---
APPROVED REPORT Date of service: 02/08/2018 EKG Measurement Heart [id number] <Conclusion> Normal sinus rhythm Normal ECG
--- NOTE | 2018-02-09 08:40 | RAD ---
Date of service: 02/08/2018 HISTORY: Wheezing/COPD. COMPARISON: 05/20/2017. FINDINGS: LUNGS: No active pulmonary disease. PLEURA: No significant pleural effusion identified, no pneumothorax apparent. CARDIOVASCULAR: No radiographic findings to suggest acute or significant cardiovascular disease. OSSEOUS STRUCTURES: No significant abnormalities. VISUALIZED UPPER ABDOMEN: Normal. OTHER FINDINGS: None. IMPRESSION: No active disease. No significant interval change compared to the prior examination(s).
== END 2018-02-08 20:00 | disposition home or self-care (01) ==
LOC: ED 18:43
DX: J44.1 Chronic obstructive pulmonary disease with (acute) exacerbation (principal); I10 Essential (primary) hypertension
CPT/HCPCS: 71045; 93005; 96374; 99284; J2930

== ENCOUNTER 2018-02-23 18:05 | Emergency (ER) | payer SELFPAY ==
[2018-02-23 18:26] VITALS: BMI 32.9
[2018-02-23] MEDS ORDERED: Albuterol-Ipratrop 3 mg / 0.5 (3 ml) UD IH STA (18:39)
--- NOTE | 2018-02-23 18:49 | ED PDOC ---
Arrival/HPI - General Chief Complaint: Shortness Of Breath Time Seen by Provider: 02/23/18 18:38 Historian: Patient - History of Present Illness Narrative History of Present Illness (Text): 02/23/18 18:48 47 y/o F w/ PMH of COPD presenting to the emergency room complaining of chest tightness that worsened earlier today. The patient reports visiting the Emergency department with similar complaints last week and was discharged home with medication. She reports being unable to take her albuterol treatments consistently and admits to using more than 4 nebulizer treatments today. She is a current smoker, but states she has not smoked in the past 16 days due to her symptoms. She denies fevers, chills, headache, dizziness, cough, rash, abdominal pain, nausea, vomiting, diarrhea, back pain, neck pain, or any other complaint. Time/Duration: 1 week Symptom Onset: Gradual Symptom Course: Worsening Quality: Tightness Context: Home Past Medical History - Provider Review Nursing Documentation Reviewed: Yes - Travel History Have you recently traveled outside [place] w/in the past 3 mons?: No - Infectious Disease Hx of Infectious Diseases: None - Tetanus Immunization Tetanus Immunization: Unknown - Cardiac Hx Cardiac Disorders: Yes Hx Hypertension: Yes - Pulmonary Hx Respiratory Disorders: Yes Hx Asthma: Yes Hx Bronchitis: Yes Hx Chronic Obstructive Pulmonary Disease (COPD): Yes Hx Emphysema: Yes - Neurological Hx Neurological Disorder: No - HEENT Hx HEENT Disorder: No - Renal Hx Renal Disorder: No - Endocrine/Metabolic Hx Endocrine Disorders: No - Hematological/Oncological Hx Blood Disorders: No - Integumentary Hx Dermatological Disorder: No - Musculoskeletal/Rheumatological Hx Musculoskeletal Disorders: Yes Hx Arthritis: Yes - Gastrointestinal Hx Gastrointestinal Disorders: No - Genitourinary/Gynecological Hx Genitourinary Disorders: No - Psychiatric Hx Psychophysiologic Disorder: Yes Hx Anxiety: Yes Hx Substance Use: No - Past Surgical History Past Surgical History: No Previous - Surgical History Hx Section: Yes - Anesthesia Hx Anesthesia: Yes Hx Anesthesia Reactions: No Hx Malignant Hyperthermia: No - Suicidal Assessment Feels Threatened In Home Enviroment: No Family/Social History - Physician Review Nursing Documentation Reviewed: Yes Family/Social History: No Known Family HX Smoking Status: Current Some Days Smoker Hx Alcohol Use: No Hx Substance Use: No Hx Substance Use Treatment: No Allergies/Home Meds Allergies/Adverse Reactions: Allergies Influenza Virus Vaccines Allergy (Verified 12/05/17 10:05) SWELLING Home Medications: Home Meds Medication Instructions Recorded Confirmed Budesonide/Formoterol Fumarate 2 puff NEB BID 12/05/17 12/05/17 [Symbicort 160-4.5 Mcg Inhaler] Review of Systems - Physician Review All systems were reviewed & negative as marked: Yes - Review of Systems Constitutional: absent: Fevers Respiratory: absent: Cough Cardiovascular: Other (chest tightness) Gastrointestinal: absent: Abdominal Pain, Diarrhea, Nausea, Vomiting Musculoskeletal: absent: Back Pain, Neck Pain Skin: absent: Rash Neurological: absent: Headache, Dizziness Physical Exam Vital Signs Reviewed: Yes Temperature: Afebrile Blood Pressure: Normal Pulse: Regular Respiratory Rate: Normal Appearance: Positive for: Well-Appearing Pain Distress: None Mental Status: Positive for: Alert and Oriented X 3 - Systems Exam Head: Present: Atraumatic, Normocephalic Pupils: Present: PERRL Extroacular Muscles: Present: EOMI Conjunctiva: Present: Normal Mouth: Present: Moist Mucous Membranes Neck: Present: Normal Range of Motion Respiratory/Chest: Present: Good Air Exchange, Wheezes (wheezing bilaterally), Tachypneic. No: Respiratory Distress, Accessory Muscle Use, Rales, Rhonchi Cardiovascular: Present: Regular Rate and Rhythm, Normal S1, S2. No: Murmurs Abdomen: No: Tenderness, Distention, Peritoneal Signs Back: Present: Normal Inspection Upper Extremity: Present: Normal Inspection. No: Cyanosis, Edema Lower Extremity: Present: Normal Inspection. No: Edema Neurological: Present: GCS=15, CN II-XII Intact, Speech Normal Skin: Present: Warm, Dry, Normal Color. No: Rashes Psychiatric: Present: Alert, Oriented x 3, Normal Insight, Normal Concentration Medical Decision Making ED Course and Treatment: 02/23/18 18:48 Impression: 47 year old female who presents to the Emergency department with complaints of chest tightness, that worsened today. Differential Diagnosis included but are not limited to: COPD exacerbation Bronchitis Plan: -- Labs -- Duoneb -- Solu-Medrol -- Chest X-ray -- Reassess and disposition Prior Visits: Notes and results from previous visits were reviewed. Patient was last seen in the emergency department on 02/08/18 complaining of chest tightness and shortness of breath. She was diagnosed with COPD exacerbation and was discharged home with steroids and albuterol. Progress Notes: 02/23/18 18:48 Patient refuses blood work at this time. Will proceed with managing patient symptomatically at this time. 02/23/18 19:15 On reevaluation patient states feeling better. No audible wheezes noted on pulmonary reexamination. Patient educated on consistent use of her rescue medication as well as nebulizer treatments. Scripts provided with return protocol given. She is stable for discharge. - Lab Interpretations I have reviewed the lab results: Yes - Medication Orders Current Medication Orders: Albuterol/Ipratropium (Duoneb 3 Mg/0.5 Mg (3 Ml) Ud) 3 ml IH STAT STA Stop: 02/23/18 18:40 Methylprednisolone (Solu-Medrol) 125 mg IVP STAT STA Stop: 02/23/18 18:40 - Scribe Statement The provider has reviewed the documentation as recorded by the Scribe Amee Gomes training with Cedric Lance Provider Scribe Attestation: All medical record entries made by the Scribe were at my direction and personally dictated by me. I have reviewed the chart and agree that the record accurately reflects my personal performance of the history, physical exam, medical decision making, and the department course for this patient. I have also personally directed, reviewed, and agree with the discharge instructions and disposition. Disposition/Present on Arrival - Present on Arrival Any Indicators Present on Arrival: No History of DVT/PE: No History of Uncontrolled Diabetes: No Urinary Catheter: No History of Decub. Ulcer: No History Surgical Site Infection Following: None - Disposition Have Diagnosis and Disposition been Completed?: Yes Diagnosis: Asthma exacerbation Disposition: HOME/ ROUTINE Disposition Time: 19:27 Patient Plan: Discharge Condition: IMPROVED Discharge Instructions (ExitCare): Asthma, Adult (DC) Additional Instructions: All medical record entries made by the Scribe were at my direction and personally dictated by me. I have reviewed the chart and agree that the record accurately reflects my personal performance of the history, physical exam, medical decision making, and the department course for this patient. I have also personally directed, reviewed, and agree with the discharge instructions and disposition. Prescriptions: RX: Albuterol HFA [Ventolin HFA 90 mcg/actuation (8 g)] 2 puff IH [id number] #1 puff RX: Ipratropium/Albuterol Sulfate [Iprat-Albut 0.5-3(2.5) mg/3 ml] 3 ml IH Q6H #3 ampul.neb Methylprednisolone [Medrol Dose Pack (21 tabs)] 4 mg PO DAILY #21 mg Referrals: Ramirez Mckinley MD [Primary Care Provider] - Follow up with primary Forms: [employer] (Kazakh)
[2018-02-23 19:23] VITALS: BP 138/88; PULSE 80; RESP 19; TEMP 98
[2018-02-23 19:47] VITALS: O2SAT 96
--- NOTE | 2018-02-25 10:28 | CARD ---
APPROVED REPORT Date of service: 02/23/2018 EKG Measurement Heart [id number] <Conclusion> Normal sinus rhythm Normal ECG No change
== END 2018-02-23 19:46 | disposition home or self-care (01) ==
LOC: ED 18:05
DX: J45.901 Unspecified asthma with (acute) exacerbation (principal); I10 Essential (primary) hypertension; F17.210 Nicotine dependence, cigarettes, uncomplicated
CPT/HCPCS: 93005; 96374; 99283; J2930

== ENCOUNTER 2018-04-03 18:41 | Emergency (ER) | payer SELFPAY ==
[2018-04-03 18:41] VITALS: BMI 32.9
--- NOTE | 2018-04-03 18:56 | ED PDOC ---
Arrival/HPI - General Chief Complaint: Shortness Of Breath Historian: Patient, Family - History of Present Illness Narrative History of Present Illness (Text): 04/03/18 18:52 47 y/o female, pmh including asthma/copd, nkda, post menopausal, chronic smoker, c/o coughing and wheezing x 2 days. Pt. stated that this feels like her usual copd/asthma flared up, coughing with wheezing, out of albuterol MDI at home, no palpitation, no chest pain, no fever or chills, no night sweat, no rash, no other medical or psychological complaints. Past Medical History - Provider Review Nursing Documentation Reviewed: Yes - Infectious Disease Hx of Infectious Diseases: None - Tetanus Immunization Tetanus Immunization: Unknown - Cardiac Hx Cardiac Disorders: Yes Hx Hypertension: Yes - Pulmonary Hx Respiratory Disorders: Yes Hx Asthma: Yes Hx Bronchitis: Yes Hx Chronic Obstructive Pulmonary Disease (COPD): Yes Hx Emphysema: Yes - Neurological Hx Neurological Disorder: No - HEENT Hx HEENT Disorder: No - Renal Hx Renal Disorder: No - Endocrine/Metabolic Hx Endocrine Disorders: No - Hematological/Oncological Hx Blood Disorders: No - Integumentary Hx Dermatological Disorder: No - Musculoskeletal/Rheumatological Hx Musculoskeletal Disorders: Yes Hx Arthritis: Yes - Gastrointestinal Hx Gastrointestinal Disorders: No - Genitourinary/Gynecological Hx Genitourinary Disorders: No - Psychiatric Hx Psychophysiologic Disorder: Yes Hx Anxiety: Yes Hx Substance Use: No - Past Surgical History Past Surgical History: No Previous - Surgical History Hx Section: Yes - Anesthesia Hx Anesthesia: Yes Hx Anesthesia Reactions: No Hx Malignant Hyperthermia: No - Suicidal Assessment Feels Threatened In Home Enviroment: No Family/Social History - Physician Review Nursing Documentation Reviewed: Yes Family/Social History: Unknown Family HX Smoking Status: Current Some Days Smoker Hx Alcohol Use: No Hx Substance Use: No Hx Substance Use Treatment: No Allergies/Home Meds Allergies/Adverse Reactions: Allergies Influenza Virus Vaccines Allergy (Verified 12/05/17 10:05) SWELLING Home Medications: Home Meds Medication Instructions Recorded Confirmed Budesonide/Formoterol Fumarate 2 puff NEB BID 12/05/17 12/05/17 [Symbicort 160-4.5 Mcg Inhaler] Review of Systems - Review of Systems Constitutional: absent: Fatigue, Fevers Eyes: absent: Vision Changes ENT: absent: Hearing Changes Respiratory: Cough, Sputum, Wheezing. absent: SOB Cardiovascular: absent: Chest Pain Gastrointestinal: absent: Abdominal Pain, Nausea, Vomiting Musculoskeletal: absent: Arthralgias, Myalgias Skin: absent: Rash, Pruritis Neurological: absent: Headache, Dizziness Psychiatric: absent: Anxiety, Depression, Suicidal Ideation Physical Exam - Systems Exam Head: Present: Atraumatic, Normocephalic Pupils: Present: PERRL Extroacular Muscles: Present: EOMI Conjunctiva: Present: Normal Mouth: Present: Moist Mucous Membranes Neck: Present: Normal Range of Motion Respiratory/Chest: Present: Wheezes, Decreased Breath Sounds. No: Respiratory Distress, Accessory Muscle Use, Rales, Retracting, Rhonchi, Tachypneic, Tender to Palpation Cardiovascular: Present: Regular Rate and Rhythm, Normal S1, S2, Other (no pedal edema). No: Murmurs Abdomen: No: Tenderness, Distention, Peritoneal Signs Back: Present: Normal Inspection Upper Extremity: Present: Normal Inspection. No: Cyanosis, Edema Lower Extremity: Present: Normal Inspection. No: Edema Neurological: Present: GCS=15, CN II-XII Intact, Speech Normal, Motor Func Grossly Intact, Gait Normal, Memory Normal Skin: Present: Warm, Dry, Normal Color. No: Rashes Psychiatric: Present: Alert, Oriented x 3, Normal Insight, Normal Concentration Medical Decision Making ED Course and Treatment: 04/03/18 18:58 -Labs -IV solumedrol/duoneb -CXR -observe and reassess 04/03/18 20:36 -Labs show no acute findings -Mg show no acute findings -EKG performed by ER staff: NSR @ 83 BPM, no ST elevation or depression, no T wave inversion. -Chest xray No acute cardiopulmonary pathology is evident. -Pt. 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 - RAD Interpretation Radiology Orders: Chest xray: EXAM: CR Chest, 1 View. CLINICAL HISTORY: Wheezing /sob COMPARISON: None provided. FINDINGS: LUNGS: The lungs appear clear. PLEURAL SPACES: No evidence of pleural effusion or pneumothorax. MEDIASTINUM: Cardiac size and mediastinal contours within normal limits. BONES: No acute osseous abnormality. IMPRESSION: No acute cardiopulmonary pathology is evident. Electronically signed on Apr 03, 2018 7:38:24 PM EST by: Cedric Askew M.D., Certified by [facility], Diagnostic Radiology Veterans' Counselor: Radiologist - EKG Interpretation EKG Interpretation (Text): 04/03/18 19:41 NSR @ 83 BPM, no ST elevation or depression, no T wave inversion. Interpreted by ED Physician: Yes Type: 12 lead EKG Comparison: Com.w/previous EKG - PA / [employer]CTION INSPECTOR / Resident Statement MD/DO has reviewed & agrees with the documentation as recorded. Disposition/Present on Arrival - Present on Arrival Any Indicators Present on Arrival: No History of DVT/PE: No History of Uncontrolled Diabetes: No Urinary Catheter: No History of Decub. 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 Prescriptions: Albuterol HFA [Ventolin HFA 90 mcg/actuation (8 g)] 2 puff IH [id number] PRN #1 in PRN Reason: Other Azithromycin [Zithromax] 250 mg PO DAILY #6 tab Montelukast Sodium [Singulair] 10 mg PO DAILY #10 tablet Prednisone 50 mg PO DAILY #5 tablet Referrals: Ramirez Mckinley MD [Primary Care Provider] - Follow up with primary Forms: [employer] (Lux[place]ish), WORK NOTE
[2018-04-03] MEDS: Albuterol-Ipratrop 3 mg / 0.5 (3 ml) UD IH SCH ×3 (19:05→19:50)
[2018-04-03 20:03] LABS: BASO # 0.11 K/mm3 (0.0-2.0); BASO % 1.7 % (0.0-3.0); EOS # 0.5 (0.0-0.7); EOS % 7.8 % (1.5-5.0); GRAN # 2.41 (1.4-6.5); GRAN % 38.4 % (50.0-68.0); LYMPH # 2.4 (1.2-3.4); LYMPH % 37.8 % (22.0-35.0); MEAN CORPUSCULAR HEMOGLOBIN 29.9 pg (25.0-35.0); MEAN CORPUSCULAR HGB CONC 32.1 g/dl (31.0-37.0); MEAN PLATELET VOLUME 11.2 fl (7.0-11.0); MONO # 0.9 (0.1-0.6); MONO % 14.3 % (1.0-6.0); RBC 4.02 10^6/uL (3.5-6.1); RED CELL DISTRIBUTION WIDTH 13.9 % (11.5-14.5); WHITE BLOOD COUNT 6.3 10^3/uL (4.5-11.0)
[2018-04-03 20:16] LABS: ALB/GLOB RATIO 1.2 (1.1-1.8); ALBUMIN 3.6 g/dL (3.0-4.8); ALT/SGPT 24 U/L (7-56); AST/SGOT 27 U/L (14-36); BLOOD UREA NITROGEN 21 mg/dL (7-21); CALCIUM 8.4 mg/dL (8.4-10.5); GFR NON-AFRICAN AMERICAN 59
[2018-04-03 20:17] VITALS: PULSE 88; TEMP 98.3
[2018-04-03 20:49] VITALS: BP 130/58; RESP 20; O2SAT 97
--- NOTE | 2018-04-04 09:19 | RAD ---
Date of service: 04/03/2018 HISTORY: wheezing COMPARISON: 02/08/2018 FINDINGS: LUNGS: No active pulmonary disease. PLEURA: No significant pleural effusion identified, no pneumothorax apparent. CARDIOVASCULAR: No aortic atherosclerotic calcification present. Normal cardiac size. No pulmonary vascular congestion. OSSEOUS STRUCTURES: No significant abnormalities. VISUALIZED UPPER ABDOMEN: Normal. OTHER FINDINGS: None. IMPRESSION: No active disease.
--- NOTE | 2018-04-04 11:07 | CARD ---
APPROVED REPORT Date of service: 04/03/2018 EKG Measurement Heart [id number] [place] 116P71 [id number] <Conclusion> Normal sinus rhythm Normal ECG
== END 2018-04-03 20:45 | disposition home or self-care (01) ==
LOC: ED 18:41
DX: J44.1 Chronic obstructive pulmonary disease with (acute) exacerbation (principal); I10 Essential (primary) hypertension
CPT/HCPCS: 71045; 80053; 83735; 84702; 85025; 93005; 96374; 99284; J2930

== ENCOUNTER 2018-05-31 07:48 | Emergency (ER) | payer SELFPAY ==
[2018-05-31 08:04] VITALS: BMI 36.7
[2018-05-31 08:05] VITALS: TEMP 98.7
--- NOTE | 2018-05-31 08:06 | ED PDOC ---
Arrival/HPI - General Time Seen by Provider: 05/31/18 07:56 Historian: Patient - History of Present Illness Narrative History of Present Illness (Text): 05/31/18 08:04 47 year old female, whose past medical history includes COPD, presents to the emergency department complaining of shortness of breath, since yesterday. Patient states her presenting symptoms feel similar to previous asthma attacks due to her COPD. She denies fevers, chills, headache, dizziness, chest pain, cough, abdominal pain, nausea, vomiting, diarrhea, back pain, neck pain, or any other complaint. Time/Duration: 24 hours Symptom Onset: Gradual Symptom Course: Unchanged Activities at Onset: Light Context: Home Past Medical History - Provider Review Nursing Documentation Reviewed: Yes - Infectious Disease Hx of Infectious Diseases: None - Tetanus Immunization Tetanus Immunization: Unknown - Cardiac Hx Cardiac Disorders: Yes Hx Hypertension: Yes - Pulmonary Hx Respiratory Disorders: Yes Hx Asthma: Yes Hx Bronchitis: Yes Hx Chronic Obstructive Pulmonary Disease (COPD): Yes Hx Emphysema: Yes - Neurological Hx Neurological Disorder: No - HEENT Hx HEENT Disorder: No - Renal Hx Renal Disorder: No - Endocrine/Metabolic Hx Endocrine Disorders: No - Hematological/Oncological Hx Blood Disorders: No - Integumentary Hx Dermatological Disorder: No - Musculoskeletal/Rheumatological Hx Musculoskeletal Disorders: Yes Hx Arthritis: Yes - Gastrointestinal Hx Gastrointestinal Disorders: No - Genitourinary/Gynecological Hx Genitourinary Disorders: No - Psychiatric Hx Psychophysiologic Disorder: Yes Hx Anxiety: Yes Hx Substance Use: No - Past Surgical History Past Surgical History: No Previous - Surgical History Hx Section: Yes - Anesthesia Hx Anesthesia: Yes Hx Anesthesia Reactions: No Hx Malignant Hyperthermia: No - Suicidal Assessment Feels Threatened In Home Enviroment: No Family/Social History - Physician Review Nursing Documentation Reviewed: Yes Family/Social History: No Known Family HX Smoking Status: Current Some Days Smoker Hx Alcohol Use: No Hx Substance Use: No Hx Substance Use Treatment: No Allergies/Home Meds Allergies/Adverse Reactions: Allergies Influenza Virus Vaccines Allergy (Verified 12/05/17 10:05) SWELLING Home Medications: Home Meds Medication Instructions Recorded Confirmed Budesonide/Formoterol Fumarate 2 puff NEB BID 12/05/17 12/05/17 [Symbicort 160-4.5 Mcg Inhaler] Review of Systems - Physician Review All systems were reviewed & negative as marked: Yes - Review of Systems Constitutional: absent: Fevers Cardiovascular: absent: Chest Pain Physical Exam - Physical Exam Narrative Physical Exam (Text): 05/31/18 08:04 Constitutional: No acute distress. Head: Normocephalic. Atraumatic. Eyes: PERRL. ENT: Moist mucous membranes. Neck: Supple. Cardiovascular: Regular rate. Chest: No tenderness. Respiratory: Diffuse wheeze bilaterally. GI: Soft. Nontender. Nondistended. Back: No CVA tenderness. Musculoskeletal: No tenderness or swelling of extremities. Skin: No rash. Neurologic: Alert, no focal deficit. Vital Signs Reviewed: Yes Temperature: Afebrile Blood Pressure: Normal Pulse: Regular Respiratory Rate: Normal Appearance: Positive for: Well-Appearing, Non-Toxic, Comfortable Pain Distress: None Mental Status: Positive for: Alert and Oriented X 3 Medical Decision Making ED Course and Treatment: 05/31/18 08:05 Impression: 47 year old female who presents to the emergency department complaining of shortness of breath. Plan: -- Duoneb -- PredniSONE -- Reassess and disposition Prior Visits: Notes and results from previous visits were reviewed. Progress Notes: 05/31/18 09:02 EKG reviewed by me, @ 7:59, shows: NSR at [address]/T changes. Patient feels better after treatments and feels comfortable to go home. Instructed to return to ED for worsening breathing. - EKG Interpretation Interpreted by ED Physician: Yes Type: 12 lead EKG - Scribe Statement The provider has reviewed the documentation as recorded by the Scribe Amee Gomes Provider Scribe Attestation: All medical record entries made by the Scribe were at my direction and p ersonally dictated by me. I have reviewed the chart and agree that the record accurately reflects my personal performance of the history, physical exam, medical decision making, and the department course for this patient. I have also personally directed, reviewed, and agree with the discharge instructions and disposition. Disposition/Present on Arrival - Present on Arrival Any Indicators Present on Arrival: No History of DVT/PE: No History of Uncontrolled Diabetes: No Urinary Catheter: No History Surgical Site Infection Following: None - Disposition Have Diagnosis and Disposition been Completed?: Yes Diagnosis: COPD exacerbation Disposition: HOME/ ROUTINE Disposition Time: 10:20 Patient Plan: Discharge Condition: STABLE Discharge Instructions (ExitCare): Exacerbation of COPD (DC) Prescriptions: Prednisone [Deltasone] 3 tab PO DAILY #12 tablet Referrals: Ramirez Mckinley MD [Family Provider] - Follow up with primary
[2018-05-31] MEDS ORDERED: Albuterol-Ipratrop 3 mg / 0.5 (3 ml) UD IH SCH (08:15)
[2018-05-31] MEDS: Albuterol-Ipratrop 3 mg / 0.5 (3 ml) UD IH SCH ×3 (08:26→09:01)
[2018-05-31] MEDS ORDERED: Albuterol-Ipratrop 3 mg / 0.5 (3 ml) UD IH STA ×2 (08:28→10:10)
[2018-05-31 10:36] VITALS: BP 130/67; PULSE 69; RESP 18; O2SAT 96
--- NOTE | 2018-06-01 12:51 | CARD ---
APPROVED REPORT Date of service: 05/31/2018 EKG Measurement Heart [id number] [place] 132P70 [id number] <Conclusion> Normal sinus rhythm Normal ECG
== END 2018-05-31 10:48 | disposition home or self-care (01) ==
LOC: ED 07:48
DX: J44.1 Chronic obstructive pulmonary disease with (acute) exacerbation (principal); I10 Essential (primary) hypertension

== ENCOUNTER 2018-06-08 14:01 | Emergency (ER) | payer SELFPAY ==
[2018-06-08 14:02] VITALS: BMI 36.7
[2018-06-08] MEDS ORDERED: Albuterol-Ipratrop 3 mg / 0.5 (3 ml) UD IH STA (14:27)
[2018-06-08 14:43] VITALS: TEMP 97
--- NOTE | 2018-06-08 15:09 | RAD ---
Date of service: 06/08/2018 HISTORY: SOB/chest pain COMPARISON: 04/03/2018 FINDINGS: LUNGS: No active pulmonary disease. PLEURA: No significant pleural effusion identified, no pneumothorax apparent. CARDIOVASCULAR: No aortic atherosclerotic calcification present. Mild cardiomegaly no pulmonary vascular congestion. OSSEOUS STRUCTURES: No significant abnormalities. VISUALIZED UPPER ABDOMEN: Normal. OTHER FINDINGS: None. IMPRESSION: No active disease.
--- NOTE | 2018-06-08 16:00 | ED PDOC ---
Arrival/HPI - General Chief Complaint: Shortness Of Breath Historian: Patient - History of Present Illness Narrative History of Present Illness (Text): 06/08/18 15:57 47yo female with pmhx of COPD who present with complaint of SOB, chest tightness, and wheezing since this morning. States she did not use her inhaler because she ran out. States this is her usual COPD exacerbation. Reports history of admission secondary to Asthma. She is not steroid dependent. Never intubated. Denies fever, chills, sick contact, travel, any other complaint. Past Medical History - Provider Review Nursing Documentation Reviewed: Yes - Infectious Disease Hx of Infectious Diseases: None - Tetanus Immunization Tetanus Immunization: Unknown - Reproductive Currently : No - Cardiac Hx Cardiac Disorders: Yes Hx Hypertension: Yes - Pulmonary Hx Respiratory Disorders: Yes Hx Asthma: Yes Hx Bronchitis: Yes Hx Chronic Obstructive Pulmonary Disease (COPD): Yes Hx Emphysema: Yes - Neurological Hx Neurological Disorder: No - HEENT Hx HEENT Disorder: No - Renal Hx Renal Disorder: No - Endocrine/Metabolic Hx Endocrine Disorders: No - Hematological/Oncological Hx Blood Disorders: No - Integumentary Hx Dermatological Disorder: No - Musculoskeletal/Rheumatological Hx Musculoskeletal Disorders: Yes Hx Arthritis: Yes - Gastrointestinal Hx Gastrointestinal Disorders: No - Genitourinary/Gynecological Hx Genitourinary Disorders: No - Psychiatric Hx Psychophysiologic Disorder: Yes Hx Anxiety: Yes Hx Substance Use: No - Past Surgical History Past Surgical History: No Previous - Surgical History Hx Section: Yes - Anesthesia Hx Anesthesia: Yes Hx Anesthesia Reactions: No Hx Malignant Hyperthermia: No - Suicidal Assessment Feels Threatened In Home Enviroment: No Family/Social History - Physician Review Nursing Documentation Reviewed: Yes Family/Social History: Unknown Family HX Smoking Status: Current Some Days Smoker Hx Alcohol Use: No Hx Substance Use: No Hx Substance Use Treatment: No Allergies/Home Meds Allergies/Adverse Reactions: Allergies Influenza Virus Vaccines Allergy (Verified 12/05/17 10:05) SWELLING Home Medications: Home Meds Medication Instructions Recorded Confirmed Budesonide/Formoterol Fumarate 2 puff NEB BID 12/05/17 12/05/17 [Symbicort 160-4.5 Mcg Inhaler] Review of Systems - Physician Review All systems were reviewed & negative as marked: Yes - Review of Systems Constitutional: Normal Eyes: Normal ENT: Normal Respiratory: SOB, Wheezing. absent: Cough, Sputum Cardiovascular: Normal Gastrointestinal: Normal Genitourinary Female: Normal Musculoskeletal: Normal Skin: Normal Neurological: Normal Endocrine: Normal Hemo/Lymphatic: Normal Psychiatric: Normal Physical Exam Vital Signs Reviewed: Yes Vital Signs Temp Pulse Resp BP Pulse Ox 06/08/18 14:31 20 06/08/18 14:02 97 F L 70 20 114/98 H 98 Temperature: Afebrile Blood Pressure: Normal Pulse: Regular Respiratory Rate: Normal Appearance: Positive for: Well-Appearing, Non-Toxic, Comfortable Pain Distress: None Mental Status: Positive for: Alert and Oriented X 3 - Systems Exam Head: Present: Atraumatic, Normocephalic Pupils: Present: PERRL Extroacular Muscles: Present: EOMI Conjunctiva: Present: Normal Mouth: Present: Moist Mucous Membranes Neck: Present: Normal Range of Motion Respiratory/Chest: Present: Good Air Exchange, Wheezes (Mild expiratory wheeze at the bases). No: Clear to Auscultation, Respiratory Distress, Accessory Muscle Use, Decreased Breath Sounds, Rales, Retracting, Rhonchi Cardiovascular: Present: Regular Rate and Rhythm, Normal S1, S2. No: Murmurs Abdomen: No: Tenderness, Distention, Peritoneal Signs Back: Present: Normal Inspection Upper Extremity: Present: Normal Inspection. No: Cyanosis, Edema Lower Extremity: Present: Normal Inspection. No: Edema Neurological: Present: GCS=15, CN II-XII Intact, Speech Normal Skin: Present: Warm, Dry, Normal Color. No: Rashes Psychiatric: Present: Alert, Oriented x 3, Normal Insight, Normal Concentration Medical Decision Making ED Course and Treatment: 06/08/18 19:28 PT in ED for stated history. she ws not in any respiratory distress chest xray NAD Prednisone Duoneb x3 On re evaluation pt report improve symptoms. Her lung was CTA b/l. she was talking in full sentence. She was DC home with Albuterol an Prednisone - RAD Interpretation Radiology Orders: 06/08/18 14:27 CHEST PORTABLE [RAD] Stat - Medication Orders Current Medication Orders: Discontinued Medications Acetaminophen (Tylenol 325mg Tab) 650 mg PO STAT STA Stop: 06/08/18 15:09 Last Admin: 06/08/18 15:32 Dose: 650 mg MAR Pain/Vitals Document 06/08/18 15:32 GMD (Rec: 06/08/18 15:32 GMD [id number]) Pain Reassessment Is This A Pain ReAssessment? No Albuterol/Ipratropium (Duoneb 3 Mg/0.5 Mg (3 Ml) Ud) 3 ml IH Q15M STA Stop: 06/08/18 14:28 Last Admin: 06/08/18 14:35 Dose: 3 ml Prednisone (Prednisone Tab) 60 mg PO STAT ONE Stop: 06/08/18 14:28 Last Admin: 06/08/18 14:35 Dose: 60 mg Disposition/Present on Arrival - Present on Arrival Any Indicators Present on Arrival: No History of DVT/PE: No History of Uncontrolled Diabetes: No Urinary Catheter: No History of Decub. Ulcer: No History Surgical Site Infection Following: None - Disposition Have Diagnosis and Disposition been Completed?: Yes Diagnosis: COPD exacerbation Disposition: HOME/ ROUTINE Disposition Time: 15:40 Patient Plan: Discharge Condition: STABLE Discharge Instructions (ExitCare): Exacerbation of COPD Additional Instructions: Follow up with your doctor/Clinic Return to ED for any new or worsening symptoms Prescriptions: RX: Albuterol HFA [Ventolin HFA 90 mcg/actuation (8 g)] 2 puff IH [id number] #1 puff RX: Prednisone 50 mg PO DAILY #5 tablet Referrals: PCP,NO [Primary Care Provider] - Follow up with primary Gabriela Lance MD [Medical Doctor] - Follow up with primary Forms: [employer] (E[place]ian)
[2018-06-08 16:12] VITALS: BP 124/80; PULSE 99; RESP 18; O2SAT 96
--- NOTE | 2018-06-09 00:54 | CARD ---
APPROVED REPORT Date of service: 06/08/2018 EKG Measurement Heart [id number] [id number] <Conclusion> Normal sinus rhythm Normal EKG
== END 2018-06-08 16:16 | disposition home or self-care (01) ==
LOC: ED 14:01
DX: J44.1 Chronic obstructive pulmonary disease with (acute) exacerbation (principal); I10 Essential (primary) hypertension

== ENCOUNTER 2018-07-18 16:43 | Inpatient (IN) | payer MEDICARE ==
[2018-07-18] MEDS ORDERED: Magnesium Sulfate 2 gm/50 ml 2 GM/50 ML BAG IVPB ONE (16:54)
--- NOTE | 2018-07-18 16:57 | ED PDOC ---
Arrival/HPI - General Chief Complaint: Shortness Of Breath Time Seen by Provider: 07/18/18 16:46 Historian: Patient - History of Present Illness Narrative History of Present Illness (Text): 07/18/18 16:56 48 year old female, with past medical history of COPD non-compliant with home O2, emphysema and asthma, presents to the ED for evaluation of worsening shortness of breath since yesterday. Patient reports associated productive cough and chest tightness, unimproved after taking nebulizer treatment at home. Patient states symptoms are consistent with past episodes of COPD exacerbation. Patient denies any fevers, chills, headache, dizziness, chest pain, abdominal pain, nausea, vomiting, diarrhea, back pain, neck pain, or any other complaints. Patient denies any history of intubation or any recent steroid use. Time/Duration: 24 hours Symptom Onset: Gradual Symptom Course: Worsening Quality: Tightness Activities at Onset: Light Context: Home Past Medical History - Provider Review Nursing Documentation Reviewed: Yes - Infectious Disease Hx of Infectious Diseases: None - Tetanus Immunization Tetanus Immunization: Unknown - Cardiac Hx Cardiac Disorders: Yes Hx Hypertension: Yes - Pulmonary Hx Respiratory Disorders: Yes Hx Asthma: Yes Hx Bronchitis: Yes Hx Chronic Obstructive Pulmonary Disease (COPD): Yes Hx Emphysema: Yes - Neurological Hx Neurological Disorder: No - HEENT Hx HEENT Disorder: No - Renal Hx Renal Disorder: No - Endocrine/Metabolic Hx Endocrine Disorders: No - Hematological/Oncological Hx Blood Disorders: No - Integumentary Hx Dermatological Disorder: No - Musculoskeletal/Rheumatological Hx Musculoskeletal Disorders: Yes Hx Arthritis: Yes - Gastrointestinal Hx Gastrointestinal Disorders: No - Genitourinary/Gynecological Hx Genitourinary Disorders: No - Psychiatric Hx Psychophysiologic Disorder: Yes Hx Anxiety: Yes Hx Substance Use: No - Past Surgical History Past Surgical History: No Previous - Surgical History Hx Section: Yes - Anesthesia Hx Anesthesia: Yes Hx Anesthesia Reactions: No Hx Malignant Hyperthermia: No - Suicidal Assessment Feels Threatened In Home Enviroment: No Family/Social History - Physician Review Nursing Documentation Reviewed: Yes Family/Social History: Unknown Family HX Smoking Status: Current Some Days Smoker Hx Alcohol Use: No Hx Substance Use: No Hx Substance Use Treatment: No Allergies/Home Meds Allergies/Adverse Reactions: Allergies Influenza Virus Vaccines Allergy (Verified 12/05/17 10:05) SWELLING Home Medications: Home Meds Medication Instructions Recorded Confirmed Budesonide/Formoterol Fumarate 2 puff NEB BID 12/05/17 12/05/17 [Symbicort 160-4.5 Mcg Inhaler] Review of Systems - Review of Systems Constitutional: absent: Fevers Eyes: absent: Vision Changes Respiratory: SOB, Cough Cardiovascular: Other (Chest tightness). absent: Edema Gastrointestinal: absent: Abdominal Pain, Diarrhea, Nausea, Vomiting Genitourinary Female: absent: Dysuria, Urine Output Changes Musculoskeletal: absent: Back Pain, Neck Pain Skin: absent: Rash Neurological: absent: Headache, Dizziness, Focal Weakness Endocrine: absent: Diaphoresis Physical Exam Vital Signs Reviewed: Yes Vital Signs Temp Pulse Resp BP Pulse Ox 07/18/18 16:51 98.4 F 85 18 168/119 H 93 L Temperature: Afebrile Blood Pressure: Hypertensive Pulse: Regular Respiratory Rate: Normal Appearance: Positive for: Well-Appearing, Non-Toxic, Comfortable Pain Distress: None Mental Status: Positive for: Alert and Oriented X 3 - Systems Exam Head: Present: Atraumatic, Normocephalic Pupils: Present: PERRL Extroacular Muscles: Present: EOMI Conjunctiva: Present: Normal Mouth: Present: Moist Mucous Membranes Neck: Present: Normal Range of Motion Respiratory/Chest: Present: Wheezes, Tachypneic. No: Respiratory Distress, Accessory Muscle Use Cardiovascular: Present: Regular Rate and Rhythm, Normal S1, S2. No: Murmurs Abdomen: No: Tenderness, Distention, Peritoneal Signs Upper Extremity: Present: Normal Inspection. No: Cyanosis, Edema Lower Extremity: Present: Normal Inspection. No: Edema Neurological: Present: GCS=15, Speech Normal Skin: Present: Warm, Dry, Normal Color. No: Rashes Psychiatric: Present: Alert, Oriented x 3, Normal Insight, Normal Concentration Medical Decision Making ED Course and Treatment: 07/18/18 17:04 Impression: 48 year old female presents to the ED for evaluation of shortness of breath, cough and chest tightness. Plan: -- Labs -- CXR -- Duoneb -- Magnesium Sulfate -- Solumedrol -- Reassess and disposition Prior Visits: Notes and results from previous visits were reviewed. Progress Notes: 07/18/18 18:02 After medication, patient still wheezing and tachypneic. 07/18/18 18:24 Cxray negative. Labs reviewed. PF:100. Persistently wheezing. O2 saturation improved on O2 that patient is non compliant with. Accepted by Dr. Porras to med/sx 07/18/18 18:54 - RAD Interpretation Radiology Orders: 07/18/18 16:55 CHEST PORTABLE [RAD] Stat - Medication Orders Current Medication Orders: Albuterol/Ipratropium (Duoneb 3 Mg/0.5 Mg (3 Ml) Ud) 3 ml IH Q15M RUFINA Stop: 07/18/18 17:31 Magnesium Sulfate (Magnesium Sulfate 2 Gm/50 Ml Water) 2 gm in 50 mls @ 50 mls/hr IVPB ONCE ONE Stop: 07/18/18 17:53 Prednisone (Prednisone Tab) 60 mg PO STAT ONE Stop: 07/18/18 16:55 - Scribe Statement The provider has reviewed the documentation as recorded by the Scribe Yeyo Wong. All medical record entries made by the Scribe were at my direction and personally dictated by me. I have reviewed the chart and agree that the record accurately reflects my personal performance of the history, physical exam, medical decision making, and the department course for this patient. I have also personally directed, reviewed, and agree with the discharge instructions and disposition. Disposition/Present on Arrival - Present on Arrival Any Indicators Present on Arrival: No History of DVT/PE: No History of Uncontrolled Diabetes: No Urinary Catheter: No History of Decub. Ulcer: No History Surgical Site Infection Following: None - Disposition Have Diagnosis and Disposition been Completed?: Yes Diagnosis: COPD exacerbation Disposition: HOSPITALIZED Disposition Time: 18:24 Patient Plan: Observation Condition: FAIR Referrals: Ramirez Mckinley MD [Primary Care Provider] - Follow up with primary Forms: [place] (Persian)
[2018-07-18 17:01] VITALS: BMI 36.6
[2018-07-18] MEDS: Albuterol-Ipratrop 3 mg / 0.5 (3 ml) UD IH SCH ×4 (17:05→20:56)
[2018-07-18 17:28] LABS: ALB/GLOB RATIO 1.2 (1.1-1.8); ALBUMIN 3.7 g/dL (3.0-4.8); ALT/SGPT 25 U/L (7-56); AST/SGOT 20 U/L (14-36); BLOOD UREA NITROGEN 22 mg/dL (7-21); CALCIUM 9.2 mg/dL (8.4-10.5); GFR NON-AFRICAN AMERICAN 59
[2018-07-18 17:50] LABS: BASO # 0.07 K/mm3 (0.0-2.0); EOS # 1.1 (0.0-0.7); EOS % 15.4 % (1.5-5.0); HEMOGLOBIN 13.5 g/dL (12.0-16.0); LYMPH # 1.8 (1.2-3.4); MEAN CELL VOLUME 91.9 fl (80.0-105.0); MEAN CORPUSCULAR HEMOGLOBIN 29.4 pg (25.0-35.0); MEAN PLATELET VOLUME 10.4 fl (7.0-11.0); MONO # 0.5 (0.1-0.6); MONO % 7.8 % (1.0-6.0); RBC 4.59 10^6/uL (3.5-6.1); RED CELL DISTRIBUTION WIDTH 14.4 % (11.5-14.5)
--- NOTE | 2018-07-18 18:40 | RAD ---
Date of service: 07/18/2018 HISTORY: Cough, wheezing. COMPARISON: No prior. FINDINGS: LUNGS: No active pulmonary disease. PLEURA: No significant pleural effusion identified, no pneumothorax apparent. CARDIOVASCULAR: No atherosclerotic calcification present No radiographic findings to suggest acute or significant cardiovascular disease. OSSEOUS STRUCTURES: No significant abnormalities. VISUALIZED UPPER ABDOMEN: Normal. OTHER FINDINGS: None. IMPRESSION: No active disease. No significant interval change compared to the prior examination(s). Concordant results with the preliminary interpretation rendered by the emergency department physician procedure.
--- NOTE | 2018-07-18 20:04 | CP.PCM.HP ---
<Mychal Diaz - Last Filed: 07/18/18 20:26> History of Present Illness - History of Present Illness History of Present Illness: Mychal Diaz, PGY1 Hospital H&P This is a 48 year old female with PMH of COPD non compliant with home O2, emphysema and asthma presenting to the hospital for 2 day history of SOB, productive cough with yellow sputum, nausea, chest tightness and fatigue. Patient states taking her nebulizer at home did not improve symptoms and that current symptoms are similar to previous episodes of COPD exacerbation. She was seen in the ED last month for SOB and was discharged home. She states she was visiting family in [place] 6 months ago and forgot her oxygen tank and has not been on oxygen since. She denies any history of intubations. She denies fevers, chills, vomiting, back pain, urinary complaints, abdominal pain, numbness, tingling, swelling, diarrhea, constipation, recent travel, recent sickness, sick contacts at home and recent lifestyle changes including medications and diet. 12 point ROS noted here, otherwise unremarkable. PMH: COPD non compliant with home O2, emphysema and asthma PMD: Dr. Mckinley SH: denies drinking and drugs. 40 pack year smoking history, quit 2 weeks ago Sx: C-sections in 1987, 1993, 1998 All: NKDA Meds: ventolin, symbicort, xanax (unknown amount) Pharmacy: [facility]: sister has kidney cancer, dad has heart problems Present on Admission - Present on Admission Any Indicators Present on Admission: No Past Patient History - Infectious Disease Hx of Infectious Diseases: None - Tetanus Immunizations Tetanus Immunization: Unknown - Past Social History Smoking Status: Former Smoker - CARDIAC Hx Cardiac Disorders: Yes Hx Hypertension: Yes - PULMONARY Hx Respiratory Disorders: Yes Hx Asthma: Yes Hx Bronchitis: Yes Hx Chronic Obstructive Pulmonary Disease (COPD): Yes Hx Emphysema: Yes - NEUROLOGICAL Hx Neurological Disorder: No - HEENT Hx HEENT Problems: No - RENAL Hx Chronic Kidney Disease: No - ENDOCRINE/METABOLIC Hx Endocrine Disorders: No - HEMATOLOGICAL/ONCOLOGICAL Hx Blood Disorders: No - INTEGUMENTARY Hx Dermatological Problems: No - MUSCULOSKELETAL/RHEUMATOLOGICAL Hx Musculoskeletal Disorders: Yes Hx Arthritis: Yes - GASTROINTESTINAL Hx Gastrointestinal Disorders: No - GENITOURINARY/GYNECOLOGICAL Hx Genitourinary Disorders: No - PSYCHIATRIC Hx Psychophysiologic Disorder: Yes Hx Anxiety: Yes Hx Substance Use: No - SURGICAL HISTORY Hx Section: Yes - ANESTHESIA Hx Anesthesia: Yes Hx Anesthesia Reactions: No Hx Malignant Hyperthermia: No Meds Allergies/Adverse Reactions: Allergies Allergy/AdvReac Type Severity Reaction Status Date / Time Influenza Virus Vaccines Allergy SWELLING Verified 12/05/17 10:05 Physical Exam - Constitutional Appears: No Acute Distress - Head Exam Head Exam: ATRAUMATIC, NORMAL INSPECTION - Eye Exam Eye Exam: EOMI Pupil Exam: PERRL - ENT Exam ENT Exam: Mucous Membranes Moist - Respiratory Exam Respiratory Exam: absent: Accessory Muscle Use, Respiratory Distress Additional comments: B/L expiratory wheezing in upper and lower B/L lung dumont - Cardiovascular Exam Cardiovascular Exam: REGULAR RHYTHM, +S1, +S2. absent: Tachycardia - GI/Abdominal Exam GI & Abdominal Exam: Normal Bowel Sounds, Soft. absent: Firm, Guarding, Tenderness - Extremities Exam Extremities exam: Positive for: pedal pulses present. Negative for: calf tenderness, tenderness Additional comments: B/L leg venous stasis changes appreciated Results - Vital Signs Recent Vital Signs: Last Vital Signs Temp 98.4 F 07/18/18 16:51 Pulse 88 07/18/18 18:18 Resp 22 07/18/18 18:18 BP 127/77 07/18/18 18:18 Pulse Ox 95 07/18/18 18:18 - Labs Result Diagrams: 07/18/18 17:00 07/18/18 17:00 Labs: Laboratory Results - last 24 hr 07/18/18 07/18/18 17:00 17:00 WBC 7.0 RBC 4.59 Hgb 13.5 Hct 42.2 MCV 91.9 MCH 29.4 MCHC 32.0 RDW 14.4 Plt Count 321 MPV 10.4 Neut % (Auto) 49.8 L Lymph % (Auto) 26.0 Gibson % (Auto) 7.8 H Eos % (Auto) 15.4 H Baso % (Auto) 1.0 Lymph # (Auto) 1.8 Gibson # (Auto) 0.5 Eos # (Auto) 1.1 H Baso # (Auto) 0.07 Absolute Neuts (auto) 3.47 Sodium 141 Potassium 4.4 Chloride 105 Carbon Dioxide 28 Anion Gap 12 BUN 22 H Creatinine 1.0 Est GFR ( Amer) > 60 Est GFR (Non-Af Amer) 59 Random Glucose 103 Calcium 9.2 Total Bilirubin 0.2 AST 20 ALT 25 Alkaline Phosphatase 70 Total Protein 6.8 Albumin 3.7 Globulin 3.1 Albumin/Globulin Ratio 1.2 Assessment & Plan - Assessment and Plan (Free Text) Assessment: This is a 48 year old female with PMH of COPD non compliant with home O2, emphysema and asthma presenting to the hospital for 2 day history of SOB, productive cough with yellow sputum, nausea, chest tightness and fatigue. Plan: COPD exacerbation -CXR 07/18 shows no active disease -solumedrol 40 q8 -pulmicort, duonebs -azithromycin day 1 -NS at 75cc/hr -heart healthy diet -social work associate eval for home oxygen -serial troponins pending Hx of asthma -duonebs prn PPX -protonix/SCD Patient seen and case discussed with attending, Dr. Soriano <Annamaria Soriano - Last Filed: 07/19/18 19:30> Results - Vital Signs Recent Vital Signs: Last Vital Signs Temp 98.1 F 07/19/18 14:00 Pulse 90 07/19/18 14:00 Resp 20 07/19/18 14:00 BP 168/89 H 07/19/18 14:00 Pulse Ox 97 07/19/18 14:00 - Labs Result Diagrams: 07/19/18 07:00 07/19/18 07:00 Labs: Laboratory Results - last 24 hr 07/19/18 07/19/18 07/19/18 00:30 07:00 07:00 WBC 10.0 D RBC 4.61 Hgb 13.5 Hct 41.7 MCV 90.5 MCH 29.3 MCHC 32.4 RDW 14.1 Plt Count 323 MPV 10.1 Neut % (Auto) 92.9 H Lymph % (Auto) 5.7 L Gibson % (Auto) 1.4 Eos % (Auto) 0.0 L Baso % (Auto) 0.0 Lymph # (Auto) 0.6 L Gibson # (Auto) 0.1 Eos # (Auto) 0.0 Baso # (Auto) 0.00 Absolute Neuts (auto) 9.25 H Neutrophils % (Manual) 92 H Lymphocytes % (Manual) 5 L Monocytes % (Manual) 3 Sodium 139 Potassium 4.4 Chloride 106 Carbon Dioxide 23 Anion Gap 14 BUN 16 Creatinine 0.6 L Est GFR ( Amer) > 60 Est GFR (Non-Af Amer) > 60 Random Glucose 129 H Calcium 9.4 Phosphorus 2.7 Magnesium 2.5 H Total Bilirubin 0.2 AST 30 ALT 13 Alkaline Phosphatase 74 Troponin I 0.01 0.01 Total Protein 7.5 Albumin 4.0 Globulin 3.5 Albumin/Globulin Ratio 1.2 Attending/Attestation - Attestation I have personally seen and examined this patient.: Yes I have fully participated in the care of the patient.: Yes I have reviewed all pertinent clinical information: Yes Notes (Text): 07/19/18 19:29 seen and examined. Discussed with resident. Exam significant for audilble wheezing.
[2018-07-18] MEDS: Sodium Chloride 0.9% 1,000 ML IV SCH (20:52)
[2018-07-18] MEDS: Budesonide 0.25 mg/2 ml Inhal Susp UD IH SCH (21:04)
--- NOTE | 2018-07-18 22:39 | CARD ---
APPROVED REPORT Date of service: 07/18/2018 EKG Measurement Heart [id number] MD [id number] <Conclusion> Normal sinus rhythm Normal ECG
[2018-07-19] MEDS: Albuterol-Ipratrop 3 mg / 0.5 (3 ml) UD IH SCH ×4 (01:55→19:31)
[2018-07-19] MEDS: MethylPREDNISolone 40 mg Vial IVP SCH ×3 (05:37→21:57)
[2018-07-19] MEDS: Pantoprazole 40 mg EC Tab PO SCH (05:38)
[2018-07-19] MEDS: Albuterol-Ipratrop 3 mg / 0.5 (3 ml) UD IH PRN (05:39)
[2018-07-19 07:25] LABS: HEMOGLOBIN 13.5 g/dL (12.0-16.0); LYMPH # 0.6 (1.2-3.4); LYMPH % 5.7 % (22.0-35.0); MEAN CELL VOLUME 90.5 fl (80.0-105.0); MEAN CORPUSCULAR HEMOGLOBIN 29.3 pg (25.0-35.0); MEAN CORPUSCULAR HGB CONC 32.4 g/dl (31.0-37.0); MEAN PLATELET VOLUME 10.1 fl (7.0-11.0); MONO # 0.1 (0.1-0.6); MONO % 1.4 % (1.0-6.0); PLATELET COUNT 323 10^3/uL (120.0-450.0); RBC 4.61 10^6/uL (3.5-6.1); RED CELL DISTRIBUTION WIDTH 14.1 % (11.5-14.5)
[2018-07-19] MEDS: Budesonide 0.25 mg/2 ml Inhal Susp UD IH SCH ×2 (07:33→19:32)
[2018-07-19] MEDS: Arformoterol 15 mcg/2 ml Inh Sol IH SCH ×2 (07:33→19:31)
[2018-07-19 07:46] LABS: TROPONIN I 0.01 ng/mL
[2018-07-19 07:54] LABS: ALB/GLOB RATIO 1.2 (1.1-1.8); ALT/SGPT 13 U/L (7-56); AST/SGOT 30 U/L (14-36); BLOOD UREA NITROGEN 16 mg/dL (7-21); CALCIUM 9.4 mg/dL (8.4-10.5); GFR NON-AFRICAN AMERICAN > 60
[2018-07-19 09:12] LABS: LYMPHOCYTE 5 % (22.0-35.0); MONOCYTE 3 % (1.0-6.0); NEUTROPHIL 92 % (50.0-70.0)
[2018-07-19] MEDS: Sodium Chloride 0.9% 1,000 ML IV SCH (09:39)
--- NOTE | 2018-07-19 12:58 | CP.PCM.PN ---
<Mychal Diaz - Last Filed: 07/19/18 12:53> Subjective - Date & Time of Evaluation Date of Evaluation: 07/19/18 Time of Evaluation: 09:40 - Subjective Subjective: Mychal Diaz PGY1 Medicine Progress Note Patient seen and examined at bedside this morning. No acute events reported overnight. Patient states SOB is unchanged from yesterday. Offers no new complaints today. Objective - Vital Signs/Intake and Output Vital Signs (last 24 hours): Temp Pulse Resp BP Pulse Ox 97.5 F L 79 20 134/73 96 07/19/18 06:00 07/19/18 06:00 07/19/18 06:00 07/19/18 06:00 07/19/18 06:00 Intake and Output: 07/19/18 07/19/18 06:59 18:59 Intake Total 450 Balance 450 - Medications Medications: Current Medications Albuterol/Ipratropium (Duoneb 3 Mg/0.5 Mg (3 Ml) Ud) 3 ml IH [id number] [facility] Last Admin: 07/19/18 07:33 Dose: 3 ml Albuterol/Ipratropium (Duoneb 3 Mg/0.5 Mg (3 Ml) Ud) 3 ml IH Q2H PRN PRN Reason: Shortness of Breath Arformoterol Tartrate (Brovana) 15 mcg IH [id number] [facility] Last Admin: 07/19/18 07:33 Dose: 15 mcg Azithromycin (Zithromax) 500 mg PO DAILY [facility]; Protocol Last Admin: 07/19/18 09:36 Dose: 500 mg Budesonide (Pulmicort Respules) 0.25 mg IH [id number] [facility] Last Admin: 07/19/18 07:33 Dose: 0.25 mg Sodium Chloride (Sodium Chloride 0.9%) 1,000 mls @ 75 mls/hr IV [id number] [facility] Last Admin: 07/19/18 09:39 Dose: 75 mls/hr Methylprednisolone (Solu-Medrol) 40 mg IVP Q8 [facility] Last Admin: 07/19/18 05:37 Dose: 40 mg Pantoprazole Sodium (Protonix Ec Tab) 40 mg PO 0600 [facility] Last Admin: 07/19/18 05:38 Dose: 40 mg - Labs Labs: 07/19/18 07:00 07/19/18 07:00 Physical Exam - Constitutional Appears: No Acute Distress - Head Exam Head Exam: ATRAUMATIC, NORMAL INSPECTION - Eye Exam Eye Exam: EOMI Pupil Exam: PERRL - ENT Exam ENT Exam: Mucous Membranes Moist - Respiratory Exam Respiratory Exam: absent: Accessory Muscle Use, Respiratory Distress Additional comments: B/L expiratory mild wheezing in lower B/L lung dumont appreciated - Cardiovascular Exam Cardiovascular Exam: REGULAR RHYTHM, +S1, +S2. absent: Tachycardia - GI/Abdominal Exam GI & Abdominal Exam: Normal Bowel Sounds, Soft. absent: Firm, Guarding, Tenderness - Extremities Exam Extremities exam: Positive for: pedal pulses present. Negative for: calf tenderness, tenderness Additional comments: B/L leg venous stasis changes appreciated Assessment and Plan - Assessment and Plan (Free Text) Assessment: This is a 48 year old female with PMH of COPD non compliant with home O2, e mphysema and asthma presenting to the hospital for 2 day history of SOB, productive cough with yellow sputum, nausea, chest tightness and fatigue. Plan: COPD exacerbation -afebrile, no WBC count -azithromycin day 2 -CXR 07/18 shows no active disease -continue solumedrol 40 q8 -continue brovana, pulmicort, duonebs -NS at 75cc/hr -heart healthy diet -PT/hospice social worker eval for home oxygen -serial troponins are WNL Hx of asthma -duonebs prn PPX -protonix/SCD Dispo: will setup with [facility] [place] [facility] upon discharge Patient seen and case discussed with attending, Desiree Agarwal <Jeannine Roque R - Last Filed: 07/19/18 14:59> Objective - Vital Signs/Intake and Output Vital Signs (last 24 hours): Temp Pulse Resp BP Pulse Ox 98.1 F 90 20 168/89 H 97 07/19/18 14:00 07/19/18 14:00 07/19/18 14:00 07/19/18 14:00 07/19/18 14:00 Intake and Output: 07/19/18 07/19/18 06:59 18:59 Intake Total 450 Balance 450 - Medications Medications: Current Medications Albuterol/Ipratropium (Duoneb 3 Mg/0.5 Mg (3 Ml) Ud) 3 ml IH [id number] Last Admin: 07/19/18 13:22 Dose: 3 ml Albuterol/Ipratropium (Duoneb 3 Mg/0.5 Mg (3 Ml) Ud) 3 ml IH Q2H PRN PRN Reason: Shortness of Breath Arformoterol Tartrate (Brovana) 15 mcg IH [id number] [facility] Last Admin: 07/19/18 07:33 Dose: 15 mcg Azithromycin (Zithromax) 500 mg PO DAILY [facility]; Protocol Last Admin: 07/19/18 09:36 Dose: 500 mg Budesonide (Pulmicort Respules) 0.25 mg IH [id number] [facility] Last Admin: 07/19/18 07:33 Dose: 0.25 mg Enoxaparin Sodium (Lovenox) 40 mg SC DAILY [facility]; Protocol Methylprednisolone (Solu-Medrol) 40 mg IVP Q8 [facility] Last Admin: 07/19/18 13:12 Dose: 40 mg Pantoprazole Sodium (Protonix Ec Tab) 40 mg PO 0600 [facility] Last Admin: 07/19/18 05:38 Dose: 40 mg - Labs Labs: 07/19/18 07:00 07/19/18 07:00 Attending/Attestation - Attestation I have personally seen and examined this patient.: Yes I have fully participated in the care of the patient.: Yes I have reviewed all pertinent clinical information, including history, physical exam and plan: Yes Notes (Text): Patient seen and examined by me with resident at 10:50AM on 07/19/18. Case including HPI, physical exam, and assessment and plan discussed with resident. Agree with above with following additions/corrections. Patient is a 48-year-old female with past medical history significant for COPD noncompliant with medications and follow up, emphysema, tobacco abuse, and asthma who presented to the emergency room with shortness of breath, productive cough, nausea, chest tightness, and fatigue. Patient states she is feeling a little better. Still with shortness of breath and productive cough. Patient states she is still wheezing. States that she gets her inhalers from the "street" and has not seen her doctor in months. No chest pain or palpitations. No abdominal pain. No nausea or vomiting. Patient complains of some heartburn and states she takes Zantac at home as needed. No fevers or chills. No headaches or dizziness. No diarrhea or constipation. Physical exam: General: Awake and alert sitting up in bed in no acute distress HEENT: Normocephalic, atraumatic. Extraocular muscles intact, pupils equal and r eactive, no scleral icterus. Oropharynx is pink moist. Neck is supple. Cardiovascular: Regular rhythm. Normal S1 and S2. No murmurs, rubs, or gallops appreciated Pulmonary: Normal respiratory effort. Decreased breath sounds. Positive expiratory wheezing. No rhonchi or rales appreciated Gastrointestinal: Soft, nondistended. Nontender. Positive bowel sounds all 4 quadrants. No guarding. Musculoskeletal: Moves all extremities. No calf tenderness. No edema appreciated Central nervous system: AAO x 3, CN 2-12 grossly intact. Dermatologic: Skin warm and dry. Assessment and plan: Patient is a 48-year-old female with past medical history significant for COPD noncompliant with medications and follow up, emphysema, tobacco abuse, and asthma who presented to the emergency room with shortness of breath, productive cough, nausea, chest tightness, and fatigue. 1. COPD exacerbation. Continue nebulizer treatments. Continue Pulmicort and Brovana. Continue Solu-medrol, taper. Continue Zithromax. Continue O2 via nasal cannula as needed. 2. Elevated BUN. Resolved with IV fluids. Continue to monitor. 3. Noncompliant with medications and follow up. Patient states she has not seen her primary care doctor on months and gets her medications off the streets. Patient has been off of oxygen for approximately 6 months. Counseled at length on importance of medication compliance. 4. Tobacco abuse. Per patient, she quit 2 weeks ago. Patient counseled at length on continued abstinence. 5. GI/DVT prophylaxis. Protonix/Lovenox Case was discussed in detail with the patient regarding current diagnosis and treatment plan. All questions answered.
[2018-07-20] MEDS: Albuterol-Ipratrop 3 mg / 0.5 (3 ml) UD IH SCH ×6 (01:32→20:52)
[2018-07-20] MEDS: MethylPREDNISolone 40 mg Vial IVP SCH ×2 (05:24→21:52)
[2018-07-20] MEDS: Pantoprazole 40 mg EC Tab PO SCH (05:24)
[2018-07-20] MEDS: Albuterol-Ipratrop 3 mg / 0.5 (3 ml) UD IH PRN ×2 (06:12→15:52)
[2018-07-20 06:46] LABS: HEMOGLOBIN 12.7 g/dL (12.0-16.0); LYMPH # 0.8 (1.2-3.4); LYMPH % 4.9 % (22.0-35.0); MEAN CELL VOLUME 91.2 fl (80.0-105.0); MEAN CORPUSCULAR HEMOGLOBIN 28.7 pg (25.0-35.0); MEAN CORPUSCULAR HGB CONC 31.4 g/dl (31.0-37.0); MEAN PLATELET VOLUME 10.7 fl (7.0-11.0); MONO # 0.9 (0.1-0.6); MONO % 5.8 % (1.0-6.0); RBC 4.43 10^6/uL (3.5-6.1); RED CELL DISTRIBUTION WIDTH 14.4 % (11.5-14.5); WHITE BLOOD COUNT 15.4 10^3/uL (4.5-11.0)
[2018-07-20 06:55] LABS: ALB/GLOB RATIO 1.3 (1.1-1.8); ALBUMIN 3.9 g/dL (3.0-4.8); ALT/SGPT 10 U/L (7-56); AST/SGOT 20 U/L (14-36); BLOOD UREA NITROGEN 21 mg/dL (7-21); CALCIUM 9.1 mg/dL (8.4-10.5); GFR NON-AFRICAN AMERICAN > 60
[2018-07-20] MEDS: Arformoterol 15 mcg/2 ml Inh Sol IH SCH ×2 (07:29→20:52)
[2018-07-20] MEDS: Budesonide 0.25 mg/2 ml Inhal Susp UD IH SCH ×2 (07:29→20:52)
[2018-07-20] MEDS: Enoxaparin 40 mg Syringe SC SCH (10:12)
--- NOTE | 2018-07-20 13:04 | CP.PCM.PN ---
<Mychal Diaz - Last Filed: 07/20/18 12:57> Subjective - Date & Time of Evaluation Date of Evaluation: 07/20/18 Time of Evaluation: 09:15 - Subjective Subjective: Mychal Diaz PGY1 Medicine Progress Note Patient seen and examined at bedside this morning. No acute events reported overnight. Patient admits to continued SOB that is slightly improved from yesterday. Able to ambulate better today. Denies any new complaints at this time. Objective - Vital Signs/Intake and Output Vital Signs (last 24 hours): Temp Pulse Resp BP Pulse Ox 97.5 F L 82 18 149/74 97 07/20/18 06:00 07/20/18 06:00 07/20/18 06:00 07/20/18 06:00 07/20/18 06:00 Intake and Output: 07/20/18 07/20/18 06:59 18:59 Intake Total 1020 Balance 1020 - Medications Medications: Current Medications Albuterol/Ipratropium (Duoneb 3 Mg/0.5 Mg (3 Ml) Ud) 3 ml IH [id number] [facility] Last Admin: 07/20/18 12:31 Dose: 3 ml Albuterol/Ipratropium (Duoneb 3 Mg/0.5 Mg (3 Ml) Ud) 3 ml IH Q2H PRN PRN Reason: Shortness of Breath Last Admin: 07/20/18 06:12 Dose: 3 ml Arformoterol Tartrate (Brovana) 15 mcg IH [id number] [facility] Last Admin: 07/20/18 07:29 Dose: 15 mcg Azithromycin (Zithromax) 500 mg PO DAILY RUFINA; Protocol Last Admin: 07/20/18 10:12 Dose: 500 mg Budesonide (Pulmicort Respules) 0.25 mg IH [id number] [facility] Last Admin: 07/20/18 07:29 Dose: 0.25 mg Enoxaparin Sodium (Lovenox) 40 mg SC DAILY RUFINA; Protocol Last Admin: 07/20/18 10:12 Dose: 40 mg Methylprednisolone (Solu-Medrol) 40 mg IVP Q12 RUFINA Pantoprazole Sodium (Protonix Ec Tab) 40 mg PO 0600 RUFINA Last Admin: 07/20/18 05:24 Dose: 40 mg - Labs Labs: 07/20/18 06:00 07/20/18 06:00 Physical Exam - Constitutional Appears: No Acute Distress - Head Exam Head Exam: ATRAUMATIC, NORMAL INSPECTION - Eye Exam Eye Exam: EOMI Pupil Exam: PERRL - ENT Exam ENT Exam: Mucous Membranes Moist - Respiratory Exam Respiratory Exam: absent: Accessory Muscle Use, Respiratory Distress Additional comments: B/L expiratory wheezing in lower B/L lung dumont appreciated - Cardiovascular Exam Cardiovascular Exam: REGULAR RHYTHM, +S1, +S2. absent: Tachycardia - GI/Abdominal Exam GI & Abdominal Exam: Normal Bowel Sounds, Soft. absent: Firm, Guarding, Tenderness - Extremities Exam Extremities exam: Positive for: pedal pulses present. Negative for: calf tenderness, tenderness Additional comments: B/L leg venous stasis changes appreciated Assessment and Plan - Assessment and Plan (Free Text) Assessment: This is a 48 year old female with PMH of COPD non compliant with home O2, emphysema and asthma presenting to the hospital for 2 day history of SOB, productive cough with yellow sputum, nausea, chest tightness and fatigue. Plan: COPD exacerbation -afebrile, WBC elevated likely 2/2 steroids -azithromycin day 3 -CXR 07/18 shows no active disease -continue solumedrol 40 q12, titrating down -continue brovana, pulmicort, duonebs -heart healthy diet -PT/director social welfare eval for home oxygen, 6 minute walk test. Per PT, not a candidate for skilled PT, discharge recommendation for home -serial troponins are WNL Hx of asthma -duonebs prn PPX -protonix/lovenox Dispo: will setup with [facility] clinic upon discharge Patient seen and case discussed with attending, Dr. Olivo <Willam Olivo - Last Filed: 07/20/18 13:56> Objective - Vital Signs/Intake and Output Vital Signs (last 24 hours): Temp Pulse Resp BP Pulse Ox 97.5 F L 82 18 149/74 97 07/20/18 06:00 07/20/18 06:00 07/20/18 06:00 07/20/18 06:00 07/20/18 06:00 Intake and Output: 07/20/18 07/20/18 06:59 18:59 Intake Total 1020 Balance 1020 - Medications Medications: Current Medications Albuterol/Ipratropium (Duoneb 3 Mg/0.5 Mg (3 Ml) Ud) 3 ml IH [id number] [facility] Last Admin: 07/20/18 12:31 Dose: 3 ml Albuterol/Ipratropium (Duoneb 3 Mg/0.5 Mg (3 Ml) Ud) 3 ml IH Q2H PRN PRN Reason: Shortness of Breath Last Admin: 07/20/18 06:12 Dose: 3 ml Arformoterol Tartrate (Brovana) 15 mcg IH [id number] [facility] Last Admin: 07/20/18 07:29 Dose: 15 mcg Azithromycin (Zithromax) 500 mg PO DAILY RUFINA; Protocol Last Admin: 07/20/18 10:12 Dose: 500 mg Budesonide (Pulmicort Respules) 0.25 mg IH [id number] [facility] Last Admin: 07/20/18 07:29 Dose: 0.25 mg Enoxaparin Sodium (Lovenox) 40 mg SC DAILY RUFINA; Protocol Last Admin: 07/20/18 10:12 Dose: 40 mg Methylprednisolone (Solu-Medrol) 40 mg IVP Q12 RUFINA Montelukast Sodium (Singulair) 10 mg PO HS RUFINA Pantoprazole Sodium (Protonix Ec Tab) 40 mg PO 0600 [facility] Last Admin: 07/20/18 05:24 Dose: 40 mg - Labs Labs: 07/20/18 06:00 07/20/18 06:00 Attending/Attestation - Attestation I have personally seen and examined this patient.: Yes I have fully participated in the care of the patient.: Yes I have reviewed all pertinent clinical information, including history, physical exam and plan: Yes Notes (Text): 07/20/18 13:52 48 year old female with past medical history of COPD on home O2 and active tobacco use (quit 2 weeks ago) who presented with shortness of breath and cough secondary to COPD exacerbation. Symptoms are slowly improving on iv steroids and duonebs. She is also on azithromycin, pulmicort, and brovana. Agree with steroid taper for today. Leukocytosis likely secondary to steroids. Will continue to monitor. Continue with supplemental oxygen as needed. She will need 6 minute walk test prior to discharge. She was counselled on smoking c essation. She was counselled on medication compliance and outpatient follow up. Willam Olivo MD Hospitalist.
[2018-07-21] MEDS: Albuterol-Ipratrop 3 mg / 0.5 (3 ml) UD IH SCH ×2 (01:50→07:18)
[2018-07-21] MEDS: Pantoprazole 40 mg EC Tab PO SCH (05:13)
[2018-07-21] MEDS: Arformoterol 15 mcg/2 ml Inh Sol IH SCH (07:18)
[2018-07-21] MEDS: Budesonide 0.25 mg/2 ml Inhal Susp UD IH SCH (07:18)
[2018-07-21 08:14] LABS: BASO # 0.01 K/mm3 (0.0-2.0); BASO % 0.1 % (0.0-3.0); EOS % 0.1 % (1.5-5.0); HEMOGLOBIN 12.9 g/dL (12.0-16.0); LYMPH # 1.1 (1.2-3.4); MEAN CELL VOLUME 90.4 fl (80.0-105.0); MEAN CORPUSCULAR HEMOGLOBIN 28.7 pg (25.0-35.0); MEAN CORPUSCULAR HGB CONC 31.8 g/dl (31.0-37.0); MEAN PLATELET VOLUME 10.6 fl (7.0-11.0); MONO # 0.8 (0.1-0.6); MONO % 7.8 % (1.0-6.0); RBC 4.49 10^6/uL (3.5-6.1); RED CELL DISTRIBUTION WIDTH 14.6 % (11.5-14.5); WHITE BLOOD COUNT 9.8 10^3/uL (4.5-11.0)
[2018-07-21 08:23] LABS: ALB/GLOB RATIO 1.3 (1.1-1.8); ALBUMIN 3.7 g/dL (3.0-4.8); ALT/SGPT < 6 U/L (7-56); AST/SGOT 17 U/L (14-36); BLOOD UREA NITROGEN 25 mg/dL (7-21); CALCIUM 8.9 mg/dL (8.4-10.5); GFR NON-AFRICAN AMERICAN > 60
[2018-07-21 08:49] VITALS: BP 121/73; PULSE 83; RESP 19; TEMP 97.6; O2SAT 99
[2018-07-21] MEDS: Enoxaparin 40 mg Syringe SC SCH (09:09)
[2018-07-21] MEDS: MethylPREDNISolone 40 mg Vial IVP SCH (09:10)
--- NOTE | 2018-07-21 14:20 | CP.PCM.DIS ---
<Mychal Diaz - Last Filed: 07/21/18 14:13> Provider - Provider Date of Admission: 07/19/18 11:10 Attending physician: Yoel Pickering MD Primary care physician: Ramirez Mckinley Consults: 07/18/18 20:20 Hand Molder [Case Management Referral] Routine Comment: Physician Instructions: Reason For Exam: home oxygen Reason for Referral: Hand Molder Eval 07/21/18 07:29 Hand Molder [Case Management Referral] Routine Comment: Physician Instructions: Reason For Exam: needs oxygen, nebulizer ansd supplies Reason for Referral: Discharge Planning Time Spent in preparation of Discharge (in minutes): 35 Hospital Course - Lab Results Lab Results: Most Recent Lab Values WBC 9.8 10^3/uL (4.5-11.0) D 07/21/18 07:00 RBC 4.49 10^6/uL (3.5-6.1) 07/21/18 07:00 Hgb 12.9 g/dL (12.0-16.0) 07/21/18 07:00 Hct 40.6 % (36.0-48.0) 07/21/18 07:00 MCV 90.4 fl (80.0-105.0) 07/21/18 07:00 MCH 28.7 pg (25.0-35.0) 07/21/18 07:00 MCHC 31.8 g/dl (31.0-37.0) 07/21/18 07:00 RDW 14.6 % (11.5-14.5) H 07/21/18 07:00 Plt Count 305 10^3/uL (120.0-450.0) 07/21/18 07:00 MPV 10.6 fl (7.0-11.0) 07/21/18 07:00 Neut % (Auto) 81.0 % (50.0-68.0) H 07/21/18 07:00 Lymph % (Auto) 11.0 % (22.0-35.0) L 07/21/18 07:00 [place] % (Auto) 7.8 % (1.0-6.0) H 07/21/18 07:00 Eos % (Auto) 0.1 % (1.5-5.0) L 07/21/18 07:00 Baso % (Auto) 0.1 % (0.0-3.0) 07/21/18 07:00 Lymph # (Auto) 1.1 (1.2-3.4) L 07/21/18 07:00 [place] # (Auto) 0.8 (0.1-0.6) H 07/21/18 07:00 Eos # (Auto) 0.0 (0.0-0.7) 07/21/18 07:00 Baso # (Auto) 0.01 K/mm3 (0.0-2.0) 07/21/18 07:00 Absolute Neuts (auto) 7.92 (1.4-6.5) H 07/21/18 07:00 Neutrophils % (Manual) 92 % (50.0-70.0) H 07/19/18 07:00 Lymphocytes % (Manual) 5 % (22.0-35.0) L 07/19/18 07:00 Monocytes % (Manual) 3 % (1.0-6.0) 07/19/18 07:00 Sodium 140 mmol/L (132-148) 07/21/18 07:00 Potassium 4.2 mmol/L (3.6-5.0) 07/21/18 07:00 Chloride 109 mmol/L (98-107) H 07/21/18 07:00 Carbon Dioxide 24 mmol/L (21-33) 07/21/18 07:00 Anion Gap 11 (10-20) 07/21/18 07:00 BUN 25 mg/dL (7-21) H 07/21/18 07:00 Creatinine 0.7 mg/dl (0.7-1.2) 07/21/18 07:00 Est GFR ( Amer) > 60 07/21/18 07:00 Est GFR (Non-Af Amer) > 60 07/21/18 07:00 Random Glucose 117 mg/dL (70-110) H 07/21/18 07:00 Calcium 8.9 mg/dL (8.4-10.5) 07/21/18 07:00 Phosphorus 2.7 mg/dL (2.5-4.5) 07/19/18 07:00 Magnesium 2.5 mg/dL (1.7-2.2) H 07/19/18 07:00 Total Bilirubin 0.2 mg/dL (0.2-1.3) 07/21/18 07:00 AST 17 U/L (14-36) 07/21/18 07:00 ALT < 6 U/L (7-56) L 07/21/18 07:00 Alkaline Phosphatase 64 U/L (38-126) 07/21/18 07:00 Troponin I 0.01 ng/mL 07/19/18 07:00 Total Protein 6.5 g/dL (5.8-8.3) 07/21/18 07:00 Albumin 3.7 g/dL (3.0-4.8) 07/21/18 07:00 Globulin 2.9 gm/dL 07/21/18 07:00 Albumin/Globulin Ratio 1.3 (1.1-1.8) 07/21/18 07:00 Physical Exam - Constitutional Appears: No Acute Distress - Head Exam Head Exam: ATRAUMATIC, NORMAL INSPECTION - Eye Exam Eye Exam: EOMI Pupil Exam: PERRL - ENT Exam ENT Exam: Mucous Membranes Moist - Respiratory Exam Respiratory Exam: absent: Accessory Muscle Use, Respiratory Distress Additional comments: no wheezing in lower B/L lung dumont appreciated - Cardiovascular Exam Cardiovascular Exam: REGULAR RHYTHM, +S1, +S2. absent: Tachycardia - GI/Abdominal Exam GI & Abdominal Exam: Normal Bowel Sounds, Soft. absent: Firm, Guarding, Tenderness - Extremities Exam Extremities exam: Positive for: pedal pulses present. Negative for: calf tenderness, tenderness Additional comments: B/L leg venous stasis changes appreciated - Hospital Course Hospital Course: Upon admission, 48 year old female with PMH of COPD non compliant with home O2, emphysema and asthma presenting to the hospital for 2 day history of SOB, productive cough with yellow sputum, nausea, chest tightness and fatigue. Patient states taking her nebulizer at home did not improve symptoms and that current symptoms are similar to previous episodes of COPD exacerbation. She was seen in the ED last month for SOB and was discharged home. She states she was visiting family in [place] 6 months ago and forgot her oxygen tank and has not been on oxygen since. She denies any history of intubations. During hospital course, she was afebrile, no WBC count noted, CXR showed no active disease and patient was admitted for COPD exacerbation. she was given 4 day course of antibiotics, solumedrol, brovana, pulmicort and duonebs with improvement in her symptoms and resolution of her wheezing. Patient has physical therapy and did not meet the requirements for home oxygen. On day of discharge, all of patient's questions were answered and she stated she would like to go home. She agreed to follow up with her primary care doctor, Dr. Mckinley and was given scripts to be filled in the hospital pharmacy. Discharge Plan - Discharge Medications Prescriptions: Albuterol HFA [Ventolin HFA 90 mcg/actuation (8 g)] 2 puff IH [id number] #1 puff Albuterol/Ipratropium [Duoneb 3 mg/0.5 mg (3 ml) UD] 3 ml IH Q2H PRN 30 Days neb PRN Reason: Shortness Of Breath Arformoterol [Brovana] 15 mcg IH [id number] 30 Days neb Budesonide [Pulmicort Respules] 0.25 mg IH [id number] 30 Days nebu Methylprednisolone [Medrol Dose Pack (21 tabs)] 4 mg PO DAILY #21 mg Montelukast [Singulair] 10 mg PO HS 30 Days tab predniSONE [Prednisone] 40 mg PO DAILY 4 Days #4 tab - Follow Up Plan Condition: FAIR Disposition: HOME/ ROUTINE Instructions: Chronic Obstructive Pulmonary Disease (COPD), Including Emphysema, Quitting Smoking for Older Adults, Smoking: Not Just Harmful to Your Lungs and Heart Additional Instructions: - Follow up with you primary doctor within 3-5 days, Dr. Mckinley - At this time you do not qualify for home oxygen - Please take the steroids as prescribed - Please take medications as prescribed, as per our discussion - Proceed to ED if symptoms return Referrals: Ramirez Mckinley MD [Primary Care Provider] - <Yoel Pickering - Last Filed: 07/21/18 17:47> Provider - Provider Date of Admission: 07/19/18 11:10 Attending physician: Yoel Pickering MD Primary care physician: Ramirez Mckinley Consults: 07/18/18 20:20 Hand Molder [Case Management Referral] Routine Comment: Physician Instructions: Reason For Exam: home oxygen Reason for Referral: Hand Molder Emi 07/21/18 07:29 Hand Molder [Case Management Referral] Routine Comment: Physician Instructions: Reason For Exam: needs oxygen, nebulizer ansd supplies Reason for Referral: Discharge Planning Hospital Course - Lab Results Lab Results: Most Recent Lab Values WBC 9.8 10^3/uL (4.5-11.0) D 07/21/18 07:00 RBC 4.49 10^6/uL (3.5-6.1) 07/21/18 07:00 Hgb 12.9 g/dL (12.0-16.0) 07/21/18 07:00 Hct 40.6 % (36.0-48.0) 07/21/18 07:00 MCV 90.4 fl (80.0-105.0) 07/21/18 07:00 MCH 28.7 pg (25.0-35.0) 07/21/18 07:00 MCHC 31.8 g/dl (31.0-37.0) 07/21/18 07:00 RDW 14.6 % (11.5-14.5) H 07/21/18 07:00 Plt Count 305 10^3/uL (120.0-450.0) 07/21/18 07:00 MPV 10.6 fl (7.0-11.0) 07/21/18 07:00 Neut % (Auto) 81.0 % (50.0-68.0) H 07/21/18 07:00 Lymph % (Auto) 11.0 % (22.0-35.0) L 07/21/18 07:00 [place] % (Auto) 7.8 % (1.0-6.0) H 07/21/18 07:00 Eos % (Auto) 0.1 % (1.5-5.0) L 07/21/18 07:00 Baso % (Auto) 0.1 % (0.0-3.0) 07/21/18 07:00 Lymph # (Auto) 1.1 (1.2-3.4) L 07/21/18 07:00 [place] # (Auto) 0.8 (0.1-0.6) H 07/21/18 07:00 Eos # (Auto) 0.0 (0.0-0.7) 07/21/18 07:00 Baso # (Auto) 0.01 K/mm3 (0.0-2.0) 07/21/18 07:00 Absolute Neuts (auto) 7.92 (1.4-6.5) H 07/21/18 07:00 Neutrophils % (Manual) 92 % (50.0-70.0) H 07/19/18 07:00 Lymphocytes % (Manual) 5 % (22.0-35.0) L 07/19/18 07:00 Monocytes % (Manual) 3 % (1.0-6.0) 07/19/18 07:00 Sodium 140 mmol/L (132-148) 07/21/18 07:00 Potassium 4.2 mmol/L (3.6-5.0) 07/21/18 07:00 Chloride 109 mmol/L (98-107) H 07/21/18 07:00 Carbon Dioxide 24 mmol/L (21-33) 07/21/18 07:00 Anion Gap 11 (10-20) 07/21/18 07:00 BUN 25 mg/dL (7-21) H 07/21/18 07:00 Creatinine 0.7 mg/dl (0.7-1.2) 07/21/18 07:00 Est GFR ( Amer) > 60 07/21/18 07:00 Est GFR (Non-Af Amer) > 60 07/21/18 07:00 Random Glucose 117 mg/dL (70-110) H 07/21/18 07:00 Calcium 8.9 mg/dL (8.4-10.5) 07/21/18 07:00 Phosphorus 2.7 mg/dL (2.5-4.5) 07/19/18 07:00 Magnesium 2.5 mg/dL (1.7-2.2) H 07/19/18 07:00 Total Bilirubin 0.2 mg/dL (0.2-1.3) 07/21/18 07:00 AST 17 U/L (14-36) 07/21/18 07:00 ALT < 6 U/L (7-56) L 07/21/18 07:00 Alkaline Phosphatase 64 U/L (38-126) 07/21/18 07:00 Troponin I 0.01 ng/mL 07/19/18 07:00 Total Protein 6.5 g/dL (5.8-8.3) 07/21/18 07:00 Albumin 3.7 g/dL (3.0-4.8) 07/21/18 07:00 Globulin 2.9 gm/dL 07/21/18 07:00 Albumin/Globulin Ratio 1.3 (1.1-1.8) 07/21/18 07:00 Attending/Attestation - Attestation I have personally seen and examined this patient.: Yes I have fully participated in the care of the patient.: Yes I have reviewed all pertinent clinical information, including history, physical exam and plan: Yes Notes (Text): 07/21/18 17:45 Attending note; Patient seen and examined with resident. Patient is sitting in a chair. Restless to go home. Patient is giving us only 10 minutes to complete the paperwork. Patient is a 48 year old female with past medical history of COPD on ??? home O2 and active tobacco use (quit 2 weeks ago) who presented with shortness of breath and cough secondary to COPD exacerbation. Symptoms are slowly improving on iv steroids and duonebs. Treated with azithromycin, pulmicort, and brovana. Clinically better. No hypoxia or tachycardia noted . PT with walk test did not show any hypoxemia. Patient can be discharged home w ithout oxygen. She was counselled on smoking cessation. She was counselled on medication compliance and outpatient follow up. Patient will be discharged home today. Follow-up with PMD in 3 days.
== END 2018-07-21 12:08 | disposition home or self-care (01) | DRG 192 ==
LOC: ED 16:43 → ERH 18:20 → 5RSO 21:40 → OBSVTOIN 07-19 11:10
PROVIDERS: ADMIT Internal Medicine; ATTEND Internal Medicine
PROC: 3E0F7GC Introduction of Other Therapeutic Substance into Respiratory Tract, Via Natural or Artificial Opening (ICD-10-PCS; principal; 2018-07-19)
DX: J43.9 Emphysema, unspecified (principal); I10 Essential (primary) hypertension; Z72.0 Tobacco use; Z99.81 Dependence on supplemental oxygen; Z91.14 Patient's other noncompliance with medication regimen; Z91.19 Patient's noncompliance with other medical treatment and regimen; F41.9 Anxiety disorder, unspecified; D72.829 Elevated white blood cell count, unspecified; T38.0X5A Adverse effect of glucocorticoids and synthetic analogues, initial encounter; Z79.51 Long term (current) use of inhaled steroids; Z80.51 Family history of malignant neoplasm of kidney

== ENCOUNTER 2018-07-28 22:38 | Observation (INO) | payer SELFPAY ==
[2018-07-28] MEDS ORDERED: Albuterol-Ipratrop 3 mg / 0.5 (3 ml) UD IH STA ×2 (22:53→23:51)
[2018-07-28] MEDS ORDERED: Magnesium Sulfate 2 gm/50 ml 2 GM/50 ML BAG IVPB ONE (22:58)
--- NOTE | 2018-07-28 23:18 | ED PDOC ---
Arrival/HPI - General Chief Complaint: Shortness Of Breath Time Seen by Provider: 07/28/18 22:41 Historian: Patient - History of Present Illness Narrative History of Present Illness (Text): 07/28/18 23:15 48 year old female, whose past medical history includes COPD/Asthma presents complaining of worsening shortness of breath for the past day. Patient states she still smokes although states that she limits them to a few cigarettes. Patient reportedly states she has been administering nebulizer treatments at home on multiple occasions with no significant improvements. Patient denies any fevers, chills, chest pain, abdominal pain, nausea, vomiting, diarrhea, back pain, neck pain, urinary symptoms, headache, dizziness, or any other complaint. Time/Duration: Other (past day ) Symptom Onset: Gradual Symptom Course: Unchanged Activities at Onset: Light Context: Home Past Medical History - Provider Review Nursing Documentation Reviewed: Yes - Infectious Disease Hx of Infectious Diseases: None - Tetanus Immunization Tetanus Immunization: Unknown - Cardiac Hx Cardiac Disorders: Yes Hx Hypertension: Yes - Pulmonary Hx Respiratory Disorders: Yes Hx Bronchitis: Yes Hx Chronic Obstructive Pulmonary Disease (COPD): Yes Hx Respiratory Tract Infection: Yes - Neurological Hx Neurological Disorder: No - HEENT Hx HEENT Disorder: No - Renal Hx Renal Disorder: No - Endocrine/Metabolic Hx Endocrine Disorders: No - Hematological/Oncological Hx Blood Disorders: No - Integumentary Hx Dermatological Disorder: No - Musculoskeletal/Rheumatological Hx Musculoskeletal Disorders: Yes Hx Arthritis: Yes - Gastrointestinal Hx Gastrointestinal Disorders: No - Genitourinary/Gynecological Hx Genitourinary Disorders: No - Psychiatric Hx Psychophysiologic Disorder: Yes Hx Anxiety: Yes Hx Substance Use: No - Past Surgical History Past Surgical History: No Previous - Surgical History Hx Section: Yes - Anesthesia Hx Anesthesia: Yes Hx Anesthesia Reactions: No Hx Malignant Hyperthermia: No - Suicidal Assessment Feels Threatened In Home Enviroment: No Family/Social History - Physician Review Nursing Documentation Reviewed: Yes Family/Social History: No Known Family HX Smoking Status: Former Smoker Hx Alcohol Use: No Hx Substance Use: No Hx Substance Use Treatment: No Allergies/Home Meds Allergies/Adverse Reactions: Allergies Influenza Virus Vaccines Allergy (Verified 12/05/17 10:05) SWELLING Review of Systems - Physician Review All systems were reviewed & negative as marked: Yes - Review of Systems Constitutional: absent: Fevers, Other (chills) Respiratory: SOB Cardiovascular: absent: Chest Pain Gastrointestinal: absent: Abdominal Pain, Nausea, Vomiting Genitourinary Female: absent: Dysuria, Frequency, Hematuria Musculoskeletal: absent: Back Pain, Neck Pain Neurological: absent: Headache, Dizziness Physical Exam Vital Signs Reviewed: Yes Vital Signs Temp Pulse Resp BP Pulse Ox 07/28/18 22:43 97.8 F 108 H 21 172/76 H 100 Temperature: Afebrile Blood Pressure: Hypertensive Pulse: Tachycardic Respiratory Rate: Normal Appearance: Positive for: Well-Appearing, Non-Toxic, Comfortable Pain Distress: None Mental Status: Positive for: Alert and Oriented X 3 - Systems Exam Head: Present: Atraumatic, Normocephalic Pupils: Present: PERRL Extroacular Muscles: Present: EOMI Conjunctiva: Present: Normal Mouth: Present: Moist Mucous Membranes Neck: Present: Normal Range of Motion Respiratory/Chest: Present: Wheezes, Decreased Breath Sounds (bilaterally). No: Respiratory Distress, Accessory Muscle Use Cardiovascular: Present: Tachycardic. No: Murmurs Abdomen: No: Tenderness, Distention, Peritoneal Signs Back: Present: Normal Inspection Upper Extremity: Present: Normal Inspection. No: Cyanosis, Edema Lower Extremity: Present: Normal Inspection. No: Edema Neurological: Present: GCS=15, Speech Normal Skin: Present: Warm, Dry, Normal Color. No: Rashes Psychiatric: Present: Alert, Oriented x 3, Normal Insight, Normal Concentration Medical Decision Making ED Course and Treatment: 07/28/18 23:02 Impression: 48 year old female presents complaining of worsening shortness of breath for the past day. Plan: -- EKG -- Labs -- Duoneb, Solu-medrol, Magnesium Sulfate IV's -- Reassess and disposition Prior Visits: Notes and results from previous visits were reviewed. Progress Notes: EKG shows NSR at 99 BPM with no acute changes. Interpreted by me. 07/29/18 02:36 Case discussed with medical artist and Dr. Barragan who is aware and agrees with the plan. Accepts patient into hospitalist service. - Lab Interpretations I have reviewed the lab results: Yes - EKG Interpretation Interpreted by ED Physician: Yes Type: 12 lead EKG - Medication Orders Current Medication Orders: Magnesium Sulfate (Magnesium Sulfate 2 Gm/50 Ml Water) 2 gm in 50 mls @ 50 mls/hr IVPB ONCE ONE Stop: 07/28/18 23:57 Last Admin: 07/28/18 23:08 Dose: 50 mls/hr eMAR Start Stop Document 07/28/18 23:08 AD (Rec: 07/28/18 23:09 AD [id number]) Intravenous Solution Start Date 07/28/18 Start Time 23:08 Discontinued Medications Albuterol/Ipratropium (Duoneb 3 Mg/0.5 Mg (3 Ml) Ud) 3 ml IH ONCE STA Stop: 07/28/18 22:54 Last Admin: 07/28/18 23:00 Dose: 3 ml Methylprednisolone (Solu-Medrol) 125 mg IVP ONCE ONE Stop: 07/28/18 22:54 Last Admin: 07/28/18 22:54 Dose: 125 mg IVP Administration Document 07/28/18 22:54 AD (Rec: 07/28/18 23:09 AD [id number]) Charges for Administration # of IVP Administrations 1 - Scribe Statement The provider has reviewed the documentation as recorded by the Helen Llanos Provider Scribe Attestation: All medical record entries made by the Scribe were at my direction and personally dictated by me. I have reviewed the chart and agree that the record accurately reflects my personal performance of the history, physical exam, medical decision making, and the department course for this patient. I have also personally directed, reviewed, and agree with the discharge instructions and disposition. \ Disposition/Present on Arrival - Present on Arrival Any Indicators Present on Arrival: No History of DVT/PE: No History of Uncontrolled Diabetes: No Urinary Catheter: No History of Decub. Ulcer: No History Surgical Site Infection Following: None - Disposition Have Diagnosis and Disposition been Completed?: Yes Diagnosis: COPD exacerbation Disposition: HOSPITALIZED Disposition Time: 02:36 Condition: STABLE
[2018-07-28 23:27] LABS: HEMOGLOBIN 13.3 g/dL (12.0-16.0); MEAN CELL VOLUME 92.9 fl (80.0-105.0); MEAN CORPUSCULAR HEMOGLOBIN 29.5 pg (25.0-35.0); MEAN CORPUSCULAR HGB CONC 31.7 g/dl (31.0-37.0); MEAN PLATELET VOLUME 10.4 fl (7.0-11.0); RBC 4.51 10^6/uL (3.5-6.1); RED CELL DISTRIBUTION WIDTH 14.9 % (11.5-14.5); WHITE BLOOD COUNT 8.4 10^3/uL (4.5-11.0)
[2018-07-28 23:50] LABS: ALB/GLOB RATIO 1.1 (1.1-1.8); ALBUMIN 3.7 g/dL (3.0-4.8); ALT/SGPT 19 U/L (7-56); AST/SGOT 22 U/L (14-36); BLOOD UREA NITROGEN 21 mg/dL (7-21); CALCIUM 8.9 mg/dL (8.4-10.5); GFR NON-AFRICAN AMERICAN > 60
[2018-07-28 23:53] LABS: TROPONIN I < 0.01 ng/mL
[2018-07-29] MEDS ORDERED: cefTRIAXone 1 gm 1 GM/100 ML BAG IV STA (02:06)
[2018-07-29] MEDS ORDERED: Azithromycin 500MG/NS 250ml 500 MG/250 ML BAG IV STA (02:06)
--- NOTE | 2018-07-29 02:40 | CP.PCM.HP ---
<Vaughn Cornell - Last Filed: 07/29/18 06:07> History of Present Illness - History of Present Illness History of Present Illness: Dr Cornell PGY1- H&P Hospitalist Service This is a 48 year old female with PMH of COPD non compliant with home O2, emphysema and asthma presenting to the hospital for 6 day history of SOB, productive cough with yellow sputum, chest tightness and fatigue and dyspnea on exertion. Patient was recently discharged from [facility] about 9 days ago, however she did not obtain any of the medications prescribed to her upon discharge, nor did she f/u with her PMD/Prosthetic Technician Dr Mckinley due to financial reasons. She states she went home, still without home O2 or any home meds and immediately began to feel worse. She took one Prednisone 50mg tab daily for 3 days which provided minor relief, along with her home nebulizer. Pt reports she still smokes a cigarette daily. She denies any history of intubations. She denies fevers, chills, vomiting, back pain, urinary complaints, abdominal pain, numbness, tingling, swelling, diarrhea, constipation, recent travel, recent sickness, sick contacts at home and recent lifestyle changes including medications and diet. 12 point ROS noted here, otherwise unremarkable. PMH: COPD non compliant with home O2, emphysema and asthma PMD: Dr. Mckinley SH: denies drinking and drugs. 40 pack year smoking history, quit 2 weeks ago Sx: C-sections in 1987, 1993, 1998 All: NKDA Meds: ventolin, symbicort, xanax (unknown amount) Pharmacy: [facility]: sister has kidney cancer, dad has heart problems Present on Admission - Present on Admission Any Indicators Present on Admission: No Review of Systems - Constitutional Constitutional: Fatigue. absent: Chills, Excessive Sweating, Fever, Headache, Night Sweats, Weakness - EENT Eyes: absent: Change in Vision Nose/Mouth/Throat: absent: Nasal Congestion, Dysphagia, Neck Pain - Cardiovascular Cardiovascular: Dyspnea on Exertion. absent: Chest Pain, Pain Radiating to Arm/Neck/Jaw, Lightheadedness, Syncope - Respiratory Respiratory: Cough, Dyspnea, Dyspnea on Exertion. absent: Hemoptysis, Wheezing, Stridor, Change in Mucous Color - Gastrointestinal Gastrointestinal: absent: Abdominal Pain, Change in Bowel Habits - Genitourinary Genitourinary: absent: Change in Urinary Stream, Dysuria - Musculoskeletal Musculoskeletal: absent: Myalgias, Numbness, Radiating Pain into Limb - Integumentary Integumentary: absent: Pruritus, Rash - Neurological Neurological: absent: Behavioral Changes, Dizziness, Headaches, Syncope, Weakness Past Patient History - Infectious Disease Hx of Infectious Diseases: None - Tetanus Immunizations Tetanus Immunization: Unknown - Past Social History Smoking Status: Former Smoker - CARDIAC Hx Cardiac Disorders: Yes Hx Hypertension: Yes - PULMONARY Hx Respiratory Disorders: Yes Hx Bronchitis: Yes Hx Chronic Obstructive Pulmonary Disease (COPD): Yes Hx Respiratory Tract Infection: Yes - NEUROLOGICAL Hx Neurological Disorder: No - HEENT Hx HEENT Problems: No - RENAL Hx Chronic Kidney Disease: No - ENDOCRINE/METABOLIC Hx Endocrine Disorders: No - HEMATOLOGICAL/ONCOLOGICAL Hx Blood Disorders: No - INTEGUMENTARY Hx Dermatological Problems: No - MUSCULOSKELETAL/RHEUMATOLOGICAL Hx Musculoskeletal Disorders: Yes Hx Arthritis: Yes - GASTROINTESTINAL Hx Gastrointestinal Disorders: No - GENITOURINARY/GYNECOLOGICAL Hx Genitourinary Disorders: No - PSYCHIATRIC Hx Psychophysiologic Disorder: Yes Hx Anxiety: Yes Hx Substance Use: No - SURGICAL HISTORY Hx Section: Yes - ANESTHESIA Hx Anesthesia: Yes Hx Anesthesia Reactions: No Hx Malignant Hyperthermia: No Meds Allergies/Adverse Reactions: Allergies Allergy/AdvReac Type Severity Reaction Status Date / Time Influenza Virus Vaccines Allergy SWELLING Verified 12/05/17 10:05 Physical Exam - Constitutional Appears: No Acute Distress, Older Than Stated Age - Head Exam Head Exam: ATRAUMATIC, NORMAL INSPECTION, NORMOCEPHALIC - Eye Exam Eye Exam: EOMI, Normal appearance, PERRL, Scleral icterus Pupil Exam: NORMAL ACCOMODATION, PERRL - ENT Exam ENT Exam: Mucous Membranes Moist - Neck Exam Neck exam: Negative for: Lymphadenopathy, Tenderness - Respiratory Exam Respiratory Exam: Decreased Breath Sounds (all 4 dumont). absent: Rhonchi, Wheezes, Stridor - Cardiovascular Exam Cardiovascular Exam: RRR, +S1, +S2 - GI/Abdominal Exam GI & Abdominal Exam: Soft. absent: Firm, Guarding, Tenderness Additional comments: large central body habitus - Extremities Exam Extremities exam: Positive for: normal capillary refill, pedal pulses present. Negative for: pedal edema Additional comments: no cyanosis noted on fingers, no clubbing of nails noted - Neurological Exam Neurological exam: Alert, CN II-XII Intact, Oriented x3 - Psychiatric Exam Psychiatric exam: Normal Affect, Normal Mood - Skin Skin Exam: Normal Color, Warm Results - Vital Signs Recent Vital Signs: Last Vital Signs Temp 97.8 F 07/28/18 22:43 Pulse 97 H 07/28/18 23:36 Resp 18 07/28/18 23:36 BP 136/74 07/28/18 23:36 Pulse Ox 98 07/28/18 23:36 - Labs Result Diagrams: 07/28/18 22:46 07/28/18 22:46 Labs: Laboratory Results - last 24 hr 07/28/18 07/28/18 22:46 22:46 WBC 8.4 RBC 4.51 Hgb 13.3 Hct 41.9 MCV 92.9 MCH 29.5 MCHC 31.7 RDW 14.9 H Plt Count 344 MPV 10.4 Sodium 137 Potassium 4.4 Chloride 100 Carbon Dioxide 32 Anion Gap 9 L BUN 21 Creatinine 0.8 Est GFR ( Amer) > 60 Est GFR (Non-Af Amer) > 60 Random Glucose 88 Calcium 8.9 Total Bilirubin 0.1 L AST 22 ALT 19 Alkaline Phosphatase 67 Lactate Dehydrogenase 475 Total Creatine Kinase 53 Troponin I < 0.01 Total Protein 6.9 Albumin 3.7 Globulin 3.2 Albumin/Globulin Ratio 1.1 Assessment & Plan - Assessment and Plan (Free Text) Assessment: This is a 48 year old female with PMH of COPD non compliant with home O2, emphysema and asthma presenting to the hospital for 6 day history of SOB, productive cough with yellow sputum, chest tightness and fatigue. Plan: COPD exacerbation -afebrile, WBCs wnl -recieved [id number] ivp, Azithro 500 and [id number] IVPB in ED -azithromycin 250 IVPB q24hrs -roce[hin 1g IVPB q24hr -CXR 07/28 shows pneumonitis -continue solumedrol 40 q12 IVP -continue brovana, pulmicort, duonebs -trops neg x1 Hx of asthma -duonebs prn PPX -lovenox -heart healthy diet <Montez Barragan - Last Filed: 07/29/18 15:56> Results - Vital Signs Recent Vital Signs: Last Vital Signs Temp 97.9 F 07/29/18 06:00 Pulse 86 07/29/18 06:00 Resp 20 07/29/18 06:00 BP 135/82 07/29/18 06:00 Pulse Ox 95 07/29/18 06:00 - Labs Result Diagrams: 07/29/18 06:25 07/29/18 06:25 Labs: Laboratory Results - last 24 hr 07/28/18 07/28/18 07/28/18 22:46 22:46 22:46 WBC 8.4 RBC 4.51 Hgb 13.3 Hct 41.9 MCV 92.9 MCH 29.5 MCHC 31.7 RDW 14.9 H Plt Count 344 MPV 10.4 Neut % (Auto) Lymph % (Auto) [place] % (Auto) Eos % (Auto) Baso % (Auto) Lymph # (Auto) [place] # (Auto) Eos # (Auto) Baso # (Auto) Absolute Neuts (auto) Neutrophils % (Manual) Lymphocytes % (Manual) Monocytes % (Manual) Platelet Evaluation pO2 VBG pH VBG pCO2 VBG HCO3 VBG Total CO2 VBG O2 Sat (Calc) VBG Base Excess VBG Potassium Glucose Lactate FiO2 Crit Value Called To Crit Value Called By Blood Gas Notified Time Sodium 137 Potassium 4.4 Chloride 100 Carbon Dioxide 32 Anion Gap 9 L BUN 21 Creatinine 0.8 Est GFR ( Amer) > 60 Est GFR (Non-Af Amer) > 60 Random Glucose 88 Calcium 8.9 Total Bilirubin 0.1 L AST 22 ALT 19 Alkaline Phosphatase 67 Lactate Dehydrogenase 475 Total Creatine Kinase 53 Troponin I < 0.01 Total Protein 6.9 Albumin 3.7 Globulin 3.2 Albumin/Globulin Ratio 1.1 Procalcitonin < 0.05 L Venous Blood Potassium 07/29/18 07/29/18 07/29/18 06:25 06:25 06:25 WBC 10.8 D RBC 4.53 Hgb 13.1 Hct 41.4 MCV 91.4 MCH 28.9 MCHC 31.6 RDW 14.6 H Plt Count 346 MPV 10.1 Neut % (Auto) 94.5 H Lymph % (Auto) 4.3 L [place] % (Auto) 0.9 L Eos % (Auto) 0.1 L Baso % (Auto) 0.2 Lymph # (Auto) 0.5 L [place] # (Auto) 0.1 Eos # (Auto) 0.0 Baso # (Auto) 0.02 Absolute Neuts (auto) 10.19 H Neutrophils % (Manual) 92 H Lymphocytes % (Manual) 7 L Monocytes % (Manual) 1 Platelet Evaluation Normal pO2 160 H VBG pH 7.39 VBG pCO2 47.0 VBG HCO3 28.5 H VBG Total CO2 29.9 H VBG O2 Sat (Calc) 99.3 H VBG Base Excess 2.8 H VBG Potassium 4.3 Glucose 159 H Lactate 2.1 FiO2 21.0 Crit Value Called To Stephanie lindo Crit Value Called By Jolynn kumari Blood Gas Notified Time 639 Sodium 139 136.0 Potassium 4.4 Chloride 101 102.0 Carbon Dioxide 29 Anion Gap 13 BUN 18 Creatinine 0.7 Est GFR ( Amer) > 60 Est GFR (Non-Af Amer) > 60 Random Glucose 155 H Calcium 9.3 Total Bilirubin 0.1 L AST 26 ALT 15 Alkaline Phosphatase 69 Lactate Dehydrogenase Total Creatine Kinase Troponin I Total Protein 7.3 Albumin 3.9 Globulin 3.4 Albumin/Globulin Ratio 1.1 Procalcitonin Venous Blood Potassium 4.3 07/29/18 10:40 WBC RBC Hgb Hct MCV MCH MCHC RDW Plt Count MPV Neut % (Auto) Lymph % (Auto) [place] % (Auto) Eos % (Auto) Baso % (Auto) Lymph # (Auto) [place] # (Auto) Eos # (Auto) Baso # (Auto) Absolute Neuts (auto) Neutrophils % (Manual) Lymphocytes % (Manual) Monocytes % (Manual) Platelet Evaluation pO2 123 H VBG pH 7.42 VBG pCO2 43.0 VBG HCO3 27.9 VBG Total CO2 29.2 H VBG O2 Sat (Calc) 99.3 H VBG Base Excess 2.9 H VBG Potassium 4.5 Glucose 148 H Lactate 2.0 FiO2 21.0 Crit Value Called To Crit Value Called By Blood Gas Notified Time Sodium 135.0 Potassium Chloride 101.0 Carbon Dioxide Anion Gap BUN Creatinine Est GFR ( Amer) Est GFR (Non-Af Amer) Random Glucose Calcium Total Bilirubin AST ALT Alkaline Phosphatase Lactate Dehydrogenase Total Creatine Kinase Troponin I Total Protein Albumin Globulin Albumin/Globulin Ratio Procalcitonin Venous Blood Potassium 4.5 Attending/Attestation - Attestation I have personally seen and examined this patient.: Yes I have fully participated in the care of the patient.: Yes I have reviewed all pertinent clinical information: Yes Notes (Text): 07/29/18 15:55 Patient was seen when she was in the ER in bed # 3. Medical record was reviewed. Agree with history, physical examination, assessment and plan.
[2018-07-29] MEDS ORDERED: Albuterol-Ipratrop 3 mg / 0.5 (3 ml) UD IH PRN (02:45)
[2018-07-29 03:31] VITALS: PULSE 86
[2018-07-29] MEDS ORDERED: guaiFENesin 200 mg/10 ml Syrup UD PO PRN (03:38)
[2018-07-29 03:45] VITALS: BMI 37.1
[2018-07-29] MEDS ORDERED: Albuterol-Ipratrop 3 mg / 0.5 (3 ml) UD IH SCH (03:45)
[2018-07-29] MEDS ORDERED: Alum-Mag Hydrox-Simethicone Susp (30 mL) PO ONE (04:16)
[2018-07-29] MEDS ORDERED: Pantoprazole 40 mg EC Tab PO SCH (06:00)
[2018-07-29] MEDS: Albuterol-Ipratrop 3 mg / 0.5 (3 ml) UD IH PRN ×2 (06:37→13:43)
[2018-07-29 06:41] LABS: VENOUS BLOOD GAS BASE EXCESS 2.8 mmol/L (0.0-2.0); VENOUS BLOOD GAS PO2 160 mm/Hg (30-55); VENOUS BLOOD PH 7.39 (7.32-7.43)
[2018-07-29 06:44] LABS: BASO # 0.02 K/mm3 (0.0-2.0); BASO % 0.2 % (0.0-3.0); EOS % 0.1 % (1.5-5.0); HEMOGLOBIN 13.1 g/dL (12.0-16.0); LYMPH # 0.5 (1.2-3.4); LYMPH % 4.3 % (22.0-35.0); MEAN CELL VOLUME 91.4 fl (80.0-105.0); MEAN CORPUSCULAR HEMOGLOBIN 28.9 pg (25.0-35.0); MEAN CORPUSCULAR HGB CONC 31.6 g/dl (31.0-37.0); MEAN PLATELET VOLUME 10.1 fl (7.0-11.0); MONO # 0.1 (0.1-0.6); MONO % 0.9 % (1.0-6.0); PLATELET COUNT 346 10^3/uL (120.0-450.0); RBC 4.53 10^6/uL (3.5-6.1); RED CELL DISTRIBUTION WIDTH 14.6 % (11.5-14.5); WHITE BLOOD COUNT 10.8 10^3/uL (4.5-11.0)
[2018-07-29 07:26] LABS: ALB/GLOB RATIO 1.1 (1.1-1.8); ALBUMIN 3.9 g/dL (3.0-4.8); ALT/SGPT 15 U/L (7-56); AST/SGOT 26 U/L (14-36); BLOOD UREA NITROGEN 18 mg/dL (7-21); CALCIUM 9.3 mg/dL (8.4-10.5); GFR NON-AFRICAN AMERICAN > 60
[2018-07-29] MEDS ORDERED: Budesonide 0.25 mg/2 ml Inhal Susp UD IH SCH (08:00)
[2018-07-29] MEDS ORDERED: Arformoterol 15 mcg/2 ml Inh Sol IH SCH ×2 (08:00)
[2018-07-29 08:13] LABS: LYMPHOCYTE 7 % (22.0-35.0); MONOCYTE 1 % (1.0-6.0); NEUTROPHIL 92 % (50.0-70.0)
[2018-07-29 08:14] LABS: PLATELET ESTIMATE NORMAL (NORMAL)
[2018-07-29 08:58] VITALS: BP 135/82; RESP 20; TEMP 97.9; O2SAT 95
--- NOTE | 2018-07-29 09:10 | RAD ---
Date of service: 07/29/2018 HISTORY: sob COMPARISON: 07/18/2018 TECHNIQUE: 1 view obtained. FINDINGS: LUNGS: No active pulmonary disease. PLEURA: No significant pleural effusion identified, no pneumothorax apparent. CARDIOVASCULAR: No aortic atherosclerotic calcification present. Normal cardiac size. No pulmonary vascular congestion. OSSEOUS STRUCTURES: No significant abnormalities. VISUALIZED UPPER ABDOMEN: Normal. OTHER FINDINGS: None. IMPRESSION: No active disease.
[2018-07-29] MEDS ORDERED: MethylPREDNISolone 40 mg Vial IVP SCH (10:00)
[2018-07-29] MEDS ORDERED: Enoxaparin 40 mg Syringe SC SCH (10:00)
[2018-07-29 10:56] LABS: VENOUS BLOOD GAS BASE EXCESS 2.9 mmol/L (0.0-2.0); VENOUS BLOOD GAS PO2 123 mm/Hg (30-55); VENOUS BLOOD PH 7.42 (7.32-7.43)
[2018-07-29] MEDS ORDERED: cefTRIAXone 1 gm 1 GM/100 ML BAG IVPB SCH (14:00)
--- NOTE | 2018-07-29 15:22 | CP.PCM.DIS ---
<Timmy Roque - Last Filed: 07/30/18 15:47> Provider - Provider Date of Admission: 07/29/18 02:33 Attending physician: Jeannine Roque DO Primary care physician: Patria Mckinley MD Time Spent in preparation of Discharge (in minutes): 45 Diagnosis - Discharge Diagnosis (1) COPD exacerbation Status: Acute Priority: High Hospital Course - Lab Results Lab Results: Most Recent Lab Values WBC 10.8 10^3/uL (4.5-11.0) D 07/29/18 06:25 RBC 4.53 10^6/uL (3.5-6.1) 07/29/18 06:25 Hgb 13.1 g/dL (12.0-16.0) 07/29/18 06:25 Hct 41.4 % (36.0-48.0) 07/29/18 06:25 MCV 91.4 fl (80.0-105.0) 07/29/18 06:25 MCH 28.9 pg (25.0-35.0) 07/29/18 06:25 MCHC 31.6 g/dl (31.0-37.0) 07/29/18 06:25 RDW 14.6 % (11.5-14.5) H 07/29/18 06:25 Plt Count 346 10^3/uL (120.0-450.0) 07/29/18 06:25 MPV 10.1 fl (7.0-11.0) 07/29/18 06:25 Neut % (Auto) 94.5 % (50.0-68.0) H 07/29/18 06:25 Lymph % (Auto) 4.3 % (22.0-35.0) L 07/29/18 06:25 Sac % (Auto) 0.9 % (1.0-6.0) L 07/29/18 06:25 Eos % (Auto) 0.1 % (1.5-5.0) L 07/29/18 06:25 Baso % (Auto) 0.2 % (0.0-3.0) 07/29/18 06:25 Lymph # (Auto) 0.5 (1.2-3.4) L 07/29/18 06:25 Sac # (Auto) 0.1 (0.1-0.6) 07/29/18 06:25 Eos # (Auto) 0.0 (0.0-0.7) 07/29/18 06:25 Baso # (Auto) 0.02 K/mm3 (0.0-2.0) 07/29/18 06:25 Absolute Neuts (auto) 10.19 (1.4-6.5) H 07/29/18 06:25 Neutrophils % (Manual) 92 % (50.0-70.0) H 07/29/18 06:25 Lymphocytes % (Manual) 7 % (22.0-35.0) L 07/29/18 06:25 Monocytes % (Manual) 1 % (1.0-6.0) 07/29/18 06:25 Platelet Evaluation Normal (NORMAL) 07/29/18 06:25 pO2 123 mm/Hg (30-55) H 07/29/18 10:40 VBG pH 7.42 (7.32-7.43) 07/29/18 10:40 VBG pCO2 43.0 (40-60) 07/29/18 10:40 VBG HCO3 27.9 mmol/l (21-28) 07/29/18 10:40 VBG Total CO2 29.2 mmol.L (22-28) H 07/29/18 10:40 VBG O2 Sat (Calc) 99.3 % (40-65) H 07/29/18 10:40 VBG Base Excess 2.9 mmol/L (0.0-2.0) H 07/29/18 10:40 VBG Potassium 4.5 mmol/L (3.6-5.2) 07/29/18 10:40 Sodium 135.0 mmol/L (132-148) 07/29/18 10:40 Chloride 101.0 mmol/L (98-107) 07/29/18 10:40 Glucose 148 mg/dl (65-105) H 07/29/18 10:40 Lactate 2.0 mmol/L (0.7-2.1) 07/29/18 10:40 FiO2 21.0 % 07/29/18 10:40 Crit Value Called To Stephanie lindo 07/29/18 06:25 Crit Value Called By Jolynn kumari 07/29/18 06:25 Blood Gas Notified Time 639 07/29/18 06:25 Sodium 139 mmol/L (132-148) 07/29/18 06:25 Potassium 4.4 mmol/L (3.6-5.0) 07/29/18 06:25 Chloride 101 mmol/L (98-107) 07/29/18 06:25 Carbon Dioxide 29 mmol/L (21-33) 07/29/18 06:25 Anion Gap 13 (10-20) 07/29/18 06:25 BUN 18 mg/dL (7-21) 07/29/18 06:25 Creatinine 0.7 mg/dl (0.7-1.2) 07/29/18 06:25 Est GFR ( Amer) > 60 07/29/18 06:25 Est GFR (Non-Af Amer) > 60 07/29/18 06:25 Random Glucose 155 mg/dL (70-110) H 07/29/18 06:25 Calcium 9.3 mg/dL (8.4-10.5) 07/29/18 06:25 Total Bilirubin 0.1 mg/dL (0.2-1.3) L 07/29/18 06:25 AST 26 U/L (14-36) 07/29/18 06:25 ALT 15 U/L (7-56) 07/29/18 06:25 Alkaline Phosphatase 69 U/L (38-126) 07/29/18 06:25 Lactate Dehydrogenase 475 U/L (333-699) 07/28/18 22:46 Total Creatine Kinase 53 U/L (35-230) 07/28/18 22:46 Troponin I < 0.01 ng/mL 07/28/18 22:46 Total Protein 7.3 g/dL (5.8-8.3) 07/29/18 06:25 Albumin 3.9 g/dL (3.0-4.8) 07/29/18 06:25 Globulin 3.4 gm/dL 07/29/18 06:25 Albumin/Globulin Ratio 1.1 (1.1-1.8) 07/29/18 06:25 Procalcitonin < 0.05 NG/ML (0.19-0.49) L 07/28/18 22:46 Venous Blood Potassium 4.5 mmol/L (3.6-5.2) 07/29/18 10:40 - Hospital Course Hospital Course: 48 year old female with PMH of COPD non compliant with home O2, emphysema and asthma presenting to the hospital for 6 day history of SOB, productive cough with yellow sputum, chest tightness and fatigue and dyspnea on exertion. Prior to this admission, patient was discharged from [facility] on 07/19 after being admitted for COPD exacerbation. Patient reported that she was unable to obtain ALL of her discharge medications after previous discharge and her condition had been subsequently worsening. Patient also reported that she continued to smoke after discharge. Patient was admitted for COPD exacerbation 2/2 non compliance. She was afebrile, CXR upon admission showed no acute cardio-pulmonary pathology; no infiltrate/effusion noted. Patient maintained O2 sat well durining hospitalization, Tolerated 6min walk test well. During hospitalization patient was treated w/ Solumedrol, Zithromax, Duonebs, Brovana, Pulmicort. Patient was seen and examined morning prior to discharge No acute events reported overnight; Patient only complaining of productive cough and mild wheezing however reports her SOB and tightness improved. Patient was seen ambulating hallways of hospital with out difficulty, fatigue, or shortness of breath. Prior to discharge, Ambulatory medications delivered to bedside via meds to beds Medication regimen discussed in detail with patient; patient verbalized understanding of discharge medications Albuterol/Ipratropium nebs, Albuterol INH, and Atrovent INH were not delivered via meds to bed Patient acknowledged that these medications were not delivered, and verified she had been given prescriptions for these medications. Patient agreed to understood outpatient follow up recommendations; and reported that she would follow up with Dr. Mckinley. Follow up instructions were given as below: Patient was seen, evaluated, and discussed w/ attending physician Dr. Jeannine Roque - Date & Time of H&P Date of H&P: 07/29/18 Time of H&P: 10:00 Discharge Exam - Head Exam Head Exam: ATRAUMATIC, NORMAL INSPECTION, NORMOCEPHALIC - Eye Exam Eye Exam: EOMI, Normal appearance, PERRL. absent: Scleral icterus - Respiratory Exam Respiratory Exam: Clear to PA & Lateral, Rales, NORMAL BREATHING PATTERN - Cardiovascular Exam Cardiovascular Exam: RRR. absent: Systolic Murmur - GI/Abdominal Exam GI & Abdominal Exam: Normal Bowel Sounds, Unremarkable - Neurological Exam Neurological exam: Alert, CN II-XII Intact, Oriented x3 - Psychiatric Exam Psychiatric exam: Normal Affect, Normal Mood - Skin Skin Exam: Dry, Intact, Warm Discharge Plan - Discharge Medications Prescriptions: Albuterol HFA [Ventolin HFA 90 mcg/actuation (8 g)] 2 puff IH [id number] PRN #1 inhaler PRN Reason: Shortness Of Breath Albuterol/Ipratropium [Duoneb 3 MG/3 Ml-0.5 MG/3 Ml 3 Ml] 1 ea IH Q6H PRN 14 Days neb PRN Reason: Shortness Of Breath Azithromycin [Z-Babar] 250 mg PO DAILY #6 tab Ipratropium [Atrovent] 2 puff IH QID #1 inhaler Mometasone/Formoterol [Dulera] 2 puff IH BID #1 inhaler Montelukast [Singulair] 10 mg PO HS 30 Days tab Pantoprazole Sodium [Protonix] 40 mg PO DAILY #15 tab predniSONE [Prednisone] See Taper PO DAILY #21 tab - Follow Up Plan Condition: STABLE Disposition: HOME/ ROUTINE Instructions: Smoking: Not Just Harmful to Your Lungs and Heart, Asthma, Adult (DC), Shortness of Breath (Dyspnea) (DC), Quitting Smoking, Exacerbation of COPD (DC) Additional Instructions: Please follow up with Dr. Mckinley within 3-5 days of discharge Please Start taking the following medications as instructed: Dulera Atrovent Singulair If you begin feeling shortness of breath/ wheezing please take the following medications NEEDED: Albuterol inhaler DUONEB nebulized Please complete 5 day course of Azithromycin as instructed on box Please complete Prednisone taper as instructed below: 4 Tabs (40mg) Daily for 3 days 3 Tabs (30mg) Daily for 3 days 2 Tabs (20mg) Daily for 3 days 1 Tab (10mg) Daily for 3 days Please stop smoking If you feel your symptoms return, or new concerning symptoms arise please go to the nearest emergency room immediately Referrals: Patria Mckinley MD [Primary Care Provider] - <Jeannine Roque - Last Filed: 07/30/18 16:02> Provider - Provider Date of Admission: 07/29/18 02:33 Attending physician: Jeannine Roque DO Primary care physician: Patria Mckinley MD Hospital Course - Lab Results Lab Results: Most Recent Lab Values WBC 10.8 10^3/uL (4.5-11.0) D 07/29/18 06:25 RBC 4.53 10^6/uL (3.5-6.1) 07/29/18 06:25 Hgb 13.1 g/dL (12.0-16.0) 07/29/18 06:25 Hct 41.4 % (36.0-48.0) 07/29/18 06:25 MCV 91.4 fl (80.0-105.0) 07/29/18 06:25 MCH 28.9 pg (25.0-35.0) 07/29/18 06:25 MCHC 31.6 g/dl (31.0-37.0) 07/29/18 06:25 RDW 14.6 % (11.5-14.5) H 07/29/18 06:25 Plt Count 346 10^3/uL (120.0-450.0) 07/29/18 06:25 MPV 10.1 fl (7.0-11.0) 07/29/18 06:25 Neut % (Auto) 94.5 % (50.0-68.0) H 07/29/18 06:25 Lymph % (Auto) 4.3 % (22.0-35.0) L 07/29/18 06:25 Sac % (Auto) 0.9 % (1.0-6.0) L 07/29/18 06:25 Eos % (Auto) 0.1 % (1.5-5.0) L 07/29/18 06:25 Baso % (Auto) 0.2 % (0.0-3.0) 07/29/18 06:25 Lymph # (Auto) 0.5 (1.2-3.4) L 07/29/18 06:25 Sac # (Auto) 0.1 (0.1-0.6) 07/29/18 06:25 Eos # (Auto) 0.0 (0.0-0.7) 07/29/18 06:25 Baso # (Auto) 0.02 K/mm3 (0.0-2.0) 07/29/18 06:25 Absolute Neuts (auto) 10.19 (1.4-6.5) H 07/29/18 06:25 Neutrophils % (Manual) 92 % (50.0-70.0) H 07/29/18 06:25 Lymphocytes % (Manual) 7 % (22.0-35.0) L 07/29/18 06:25 Monocytes % (Manual) 1 % (1.0-6.0) 07/29/18 06:25 Platelet Evaluation Normal (NORMAL) 07/29/18 06:25 pO2 123 mm/Hg (30-55) H 07/29/18 10:40 VBG pH 7.42 (7.32-7.43) 07/29/18 10:40 VBG pCO2 43.0 (40-60) 07/29/18 10:40 VBG HCO3 27.9 mmol/l (21-28) 07/29/18 10:40 VBG Total CO2 29.2 mmol.L (22-28) H 07/29/18 10:40 VBG O2 Sat (Calc) 99.3 % (40-65) H 07/29/18 10:40 VBG Base Excess 2.9 mmol/L (0.0-2.0) H 07/29/18 10:40 VBG Potassium 4.5 mmol/L (3.6-5.2) 07/29/18 10:40 Sodium 135.0 mmol/L (132-148) 07/29/18 10:40 Chloride 101.0 mmol/L (98-107) 07/29/18 10:40 Glucose 148 mg/dl (65-105) H 07/29/18 10:40 Lactate 2.0 mmol/L (0.7-2.1) 07/29/18 10:40 FiO2 21.0 % 07/29/18 10:40 Crit Value Called To Stephanie lindo 07/29/18 06:25 Crit Value Called By Jolynn kumari 07/29/18 06:25 Blood Gas Notified Time 639 07/29/18 06:25 Sodium 139 mmol/L (132-148) 07/29/18 06:25 Potassium 4.4 mmol/L (3.6-5.0) 07/29/18 06:25 Chloride 101 mmol/L (98-107) 07/29/18 06:25 Carbon Dioxide 29 mmol/L (21-33) 07/29/18 06:25 Anion Gap 13 (10-20) 07/29/18 06:25 BUN 18 mg/dL (7-21) 07/29/18 06:25 Creatinine 0.7 mg/dl (0.7-1.2) 07/29/18 06:25 Est GFR ( Amer) > 60 07/29/18 06:25 Est GFR (Non-Af Amer) > 60 07/29/18 06:25 Random Glucose 155 mg/dL (70-110) H 07/29/18 06:25 Calcium 9.3 mg/dL (8.4-10.5) 07/29/18 06:25 Total Bilirubin 0.1 mg/dL (0.2-1.3) L 07/29/18 06:25 AST 26 U/L (14-36) 07/29/18 06:25 ALT 15 U/L (7-56) 07/29/18 06:25 Alkaline Phosphatase 69 U/L (38-126) 07/29/18 06:25 Lactate Dehydrogenase 475 U/L (333-699) 07/28/18 22:46 Total Creatine Kinase 53 U/L (35-230) 07/28/18 22:46 Troponin I < 0.01 ng/mL 07/28/18 22:46 Total Protein 7.3 g/dL (5.8-8.3) 07/29/18 06:25 Albumin 3.9 g/dL (3.0-4.8) 07/29/18 06:25 Globulin 3.4 gm/dL 07/29/18 06:25 Albumin/Globulin Ratio 1.1 (1.1-1.8) 07/29/18 06:25 Procalcitonin < 0.05 NG/ML (0.19-0.49) L 07/28/18 22:46 Venous Blood Potassium 4.5 mmol/L (3.6-5.2) 07/29/18 10:40 Attending/Attestation - Attestation I have personally seen and examined this patient.: Yes I have fully participated in the care of the patient.: Yes I have reviewed all pertinent clinical information, including history, physical exam and plan: Yes Notes (Text): Please note this DC summary is for 07/29/18 Patient seen and examined by me with resident at approximately 10:20AM and prior to discharge on 07/29/18. Case including discharge plan discussed with resident. Agree with above with following additions/corrections. Patient is a 48-year-old female past medical history significant for COPD noncompliant with medications and emphysema that presented to the emergency room with shortness of breath, cough, and chest tightness. Please see H&P for full details. Patient was found to have COPD exacerbation. Patient was treated with Solu- Medrol, nebulizer treatments, antibiotics, Brovana, and Pulmicort. Following da y, symptoms resolved. She was feeling much better. She was ambulating well off oxygen maintaining good O2 saturation. She was provided all medications at bedside prior to discharge. Patient had no leukocytosis. Patient was afebrile. Chest x-ray per radiologist showed no active disease. Patient was discharged home. On day of discharge, patient stated she was feeling much better. Stated shortness of breath resolved. No coughing. Patient was ambulating well without oxygen. No chest pain or palpitations. No lightheadedness or dizziness. No headaches or change in vision. No fevers or chills. No dysuria. No diarhea or constipation. Physical exam: General: Awake and alert lying in bed in no acute distress. HEENT: Normocephalic, atraumatic. Extraocular muscles intact, pupils equal and reactive, no scleral icterus. Oropharynx is pink and moist. No pharyngeal erythema or exudate appreciated. Neck is supple. Hearing grossly intact. Ears and nose externally unremarkable. Cardiovascular: Regular rhythm. Normal S1, S2. No murmurs, rubs, or gallops appreciated Pulmonary: Normal respiratory effort. No rhonchi, rales, or wheezing appreciated. Gastrointestinal: Soft. Nondistended. Nontender. Positive bowel sounds all 4 quadrants. No guarding. Musculoskeletal: Moves all extremities. No calf tenderness. No edema appreciated. Central nervous system: AAOx3. CN2-12 grossly intact. Dermatologic: Skin warm and dry. Please see chart for full details. Follow up instructions: Patient to follow-up with primary care doctor within 3-5 days. Patient to take medications as prescribed. Patient to complete steroid taper. All instructions explained to the patient in detail. Patient both understands and agrees to all instructions. Written instructions also given. Time spent in discharging the patient including chart review, medication reconciliation, discussion with the patient, medical coder, consultants, and nursing staff was approximately 40 minutes.
[2018-07-29] MEDS ORDERED: Azithromycin 500MG/NS 250ml 500 MG/250 ML BAG IVPB SCH (16:00)
[2018-07-29] MEDS ORDERED: Azithromycin 250 MG in Sodium Chloride 0.9% 250 ML IVPB SCH (17:00)
--- NOTE | 2018-07-29 20:59 | CARD ---
APPROVED REPORT Date of service: 07/28/2018 EKG Measurement Heart [id number] <Conclusion> Normal sinus rhythm Normal ECG
== END 2018-07-29 16:24 | disposition home or self-care (01) ==
LOC: ED 22:38 → ERH 07-29 02:33 → 3RSO 07-29 03:23
PROVIDERS: ADMIT Hospitalist; ATTEND Hospitalist
DX: J43.9 Emphysema, unspecified (principal); F17.210 Nicotine dependence, cigarettes, uncomplicated; I10 Essential (primary) hypertension; Z91.14 Patient's other noncompliance with medication regimen; Z91.19 Patient's noncompliance with other medical treatment and regimen; Z80.51 Family history of malignant neoplasm of kidney; Z88.7 Allergy status to serum and vaccine
CPT/HCPCS: 36415; 71045; 80053; 81025; 82550; 82803; 83615; 84145; 84484; 85025; 85027; 93005; 94640; 94760; 96372; 96374; 96375; 99285; G0378; J0696; J1650; J2920; J2930

== ENCOUNTER 2018-08-10 15:30 | Emergency (ER) | payer SELFPAY ==
[2018-08-10 15:39] VITALS: BMI 34.7
--- NOTE | 2018-08-10 15:41 | ED PDOC ---
Arrival/HPI - General Historian: Patient - History of Present Illness Narrative History of Present Illness (Text): 08/10/18 15:38 48 y/o female, post menopausal, pmh including asthma/copd, nkda, c/o coughing/wheezing started this morning. Pt. stated that she has been coughing and wheezing this morning, feels like her asthma/duoneb flared up, no palpitation, no pleuritic pain, no chest pain, no shortness of breath, no diarrhea, no other medical or psychological complaints. Past Medical History - Provider Review Nursing Documentation Reviewed: Yes - Infectious Disease Hx of Infectious Diseases: None - Tetanus Immunization Tetanus Immunization: Unknown - Cardiac Hx Cardiac Disorders: Yes Hx Hypertension: Yes - Pulmonary Hx Respiratory Disorders: Yes Hx Bronchitis: Yes Hx Chronic Obstructive Pulmonary Disease (COPD): Yes Hx Respiratory Tract Infection: Yes - Neurological Hx Neurological Disorder: No - HEENT Hx HEENT Disorder: No - Renal Hx Renal Disorder: No - Endocrine/Metabolic Hx Endocrine Disorders: No - Hematological/Oncological Hx Blood Disorders: No - Integumentary Hx Dermatological Disorder: No - Musculoskeletal/Rheumatological Hx Musculoskeletal Disorders: Yes Hx Arthritis: Yes - Gastrointestinal Hx Gastrointestinal Disorders: No - Genitourinary/Gynecological Hx Genitourinary Disorders: No - Psychiatric Hx Psychophysiologic Disorder: Yes Hx Anxiety: Yes Hx Substance Use: No - Past Surgical History Past Surgical History: No Previous - Surgical History Hx Section: Yes - Anesthesia Hx Anesthesia: Yes Hx Anesthesia Reactions: No Hx Malignant Hyperthermia: No - Suicidal Assessment Feels Threatened In Home Enviroment: No Family/Social History - Physician Review Nursing Documentation Reviewed: Yes Family/Social History: Unknown Family HX Smoking Status: Former Smoker Hx Alcohol Use: No Hx Substance Use: No Hx Substance Use Treatment: No Allergies/Home Meds Allergies/Adverse Reactions: Allergies Influenza Virus Vaccines Allergy (Verified 12/05/17 10:05) SWELLING Review of Systems - Review of Systems Constitutional: absent: Fatigue, Fevers Eyes: absent: Vision Changes ENT: absent: Hearing Changes Respiratory: Cough, Wheezing. absent: SOB, Sputum Cardiovascular: absent: Chest Pain Gastrointestinal: absent: Abdominal Pain, Nausea, Vomiting Skin: absent: Rash, Pruritis Neurological: absent: Headache, Dizziness Psychiatric: absent: Anxiety, Depression, Suicidal Ideation Physical Exam Vital Signs Reviewed: Yes Temperature: Afebrile Blood Pressure: Normal Pulse: Regular Respiratory Rate: Normal Appearance: Positive for: Well-Appearing, Non-Toxic, Comfortable Pain Distress: None Mental Status: Positive for: Alert and Oriented X 3 - Systems Exam Head: Present: Atraumatic, Normocephalic Pupils: Present: PERRL Extroacular Muscles: Present: EOMI Conjunctiva: Present: Normal Ears: Present: NORMAL TM, Normal Canal. No: Erythema Mouth: Present: Moist Mucous Membranes Nose (External): Present: Atraumatic. No: Abrasion, Contusion, Laceration Nose (Internal): Present: Normal Inspection, No Active Bleeding. No: Rhinorrhea, Septal Hematoma, Epistaxis Neck: Present: Normal Range of Motion, Trachea Midline. No: Meningeal Signs, MIDLINE TENDERNESS, Paraspinal Tenderness, Lymphadenopathy Respiratory/Chest: Present: Wheezes, Decreased Breath Sounds, Rhonchi. No: Respiratory Distress, Accessory Muscle Use, Rales, Retracting, Tachypneic, Tender to Palpation Cardiovascular: Present: Regular Rate and Rhythm, Normal S1, S2. No: Murmurs Abdomen: No: Tenderness, Distention, Peritoneal Signs Back: Present: Normal Inspection. No: CVA Tenderness, Midline Tenderness Upper Extremity: Present: Normal Inspection, Normal ROM, NORMAL PULSES, Neurovascularly Intact. No: Cyanosis, Edema, Deformity Lower Extremity: Present: Normal Inspection, NORMAL PULSES, Normal ROM, Neurovascularly Intact. No: Edema, Deformity Neurological: Present: GCS=15, CN II-XII Intact, Speech Normal Skin: Present: Warm, Dry, Normal Color. No: Rashes Psychiatric: Present: Alert, Oriented x 3, Normal Insight, Normal Concentration Medical Decision Making ED Course and Treatment: 08/10/18 15:45 -labs -ekg -cxr -IV solumedrol/duoneb -OBserve and reassess 08/10/18 18:24 -EKG NSR @ 79 BPM, no ST elevation or depression, no T wave inversion. -CXR ER wet read: no active disease -Labs are non-significant -Mg within normal limit -Trop is negative, HEART score is low -BNP within normal limit. -Wheezing resolved, feeling completely relief, labs/radiology results discussed. I offered admission but she wanna be discharged home. -Azithromycin ordered. -Discharge home with zithromax, prednisone, albuterol MDI, claritin, stay hydrated, bed rest, follow up with your own pmd and composite science teacher within 2 days, return to the ER for any new or worsening signs or symptoms. - RAD Interpretation Radiology Orders: Date of service: 08/10/2018 HISTORY: medical clearance COMPARISON: 07/29/2018. FINDINGS: LUNGS: No active pulmonary disease. PLEURA: No significant pleural effusion identified, no pneumothorax apparent. CARDIOVASCULAR: No atherosclerotic calcification present Normal. OSSEOUS STRUCTURES: No significant abnormalities. VISUALIZED UPPER ABDOMEN: Normal. OTHER FINDINGS: None. IMPRESSION: No active disease. No significant interval change compared to the prior examination(s). Concordant results with the preliminary interpretation rendered by the emergency department physician\PA at the conclusion of the procedure. - PA / FURNACE INSTALLER HELPER / Resident Statement MD/DO has reviewed & agrees with the documentation as recorded. Disposition/Present on Arrival - Present on Arrival Any Indicators Present on Arrival: No History of DVT/PE: No History of Uncontrolled Diabetes: No Urinary Catheter: No History of Decub. Ulcer: No History Surgical Site Infection Following: None - Disposition Have Diagnosis and Disposition been Completed?: Yes Diagnosis: Bronchitis Disposition: HOME/ ROUTINE Disposition Time: 18:26 Patient Plan: Discharge Patient Problems: Current Active Problems Problem Status Onset Bronchitis Acute Condition: GOOD Additional Instructions: -Discharge home with zithromax, prednisone, albuterol MDI, claritin, stay hydrated, bed rest, follow up with your own pmd and composite science teacher within 2 days, return to the ER for any new or worsening signs or symptoms. Prescriptions: Albuterol Sulfate [Proair Respiclick] 2 puff IH QID PRN #1 inhaler PRN Reason: Wheezing Azithromycin [Zithromax] 250 mg PO DAILY #4 tab Loratadine [Claritin] 10 mg PO DAILY #10 tab Prednisone 50 mg PO DAILY #5 tablet Referrals: [facility] at [facility] [place] [Outside] - Follow up with primary Tio Villarreal MD [Staff Provider] - Follow up with primary Forms: WORK NOTE
[2018-08-10] MEDS ORDERED: Sodium Chloride 0.9% 1,000 ML IV SCH (15:45)
[2018-08-10] MEDS: Albuterol-Ipratrop 3 mg / 0.5 (3 ml) UD IH SCH ×3 (16:00→17:14)
[2018-08-10 16:26] VITALS: TEMP 98.2
--- NOTE | 2018-08-10 16:27 | RAD ---
Date of service: 08/10/2018 HISTORY: medical clearance COMPARISON: 07/29/2018. FINDINGS: LUNGS: No active pulmonary disease. PLEURA: No significant pleural effusion identified, no pneumothorax apparent. CARDIOVASCULAR: No atherosclerotic calcification present Normal. OSSEOUS STRUCTURES: No significant abnormalities. VISUALIZED UPPER ABDOMEN: Normal. OTHER FINDINGS: None. IMPRESSION: No active disease. No significant interval change compared to the prior examination(s). Concordant results with the preliminary interpretation rendered by the emergency department physician procedure.
[2018-08-10 17:06] LABS: BASO # 0.06 K/mm3 (0.0-2.0); BASO % 0.8 % (0.0-3.0); EOS # 0.6 (0.0-0.7); EOS % 8.4 % (1.5-5.0); HEMOGLOBIN 13.4 g/dL (12.0-16.0); LYMPH # 1.6 (1.2-3.4); LYMPH % 20.9 % (22.0-35.0); MEAN CELL VOLUME 92.1 fl (80.0-105.0); MEAN CORPUSCULAR HEMOGLOBIN 29.5 pg (25.0-35.0); MEAN PLATELET VOLUME 10.5 fl (7.0-11.0); MONO # 0.7 (0.1-0.6); MONO % 8.6 % (1.0-6.0); RBC 4.55 10^6/uL (3.5-6.1); RED CELL DISTRIBUTION WIDTH 14.4 % (11.5-14.5); WHITE BLOOD COUNT 7.6 10^3/uL (4.5-11.0)
[2018-08-10 17:33] LABS: B-TYPE NATRIURETIC PEPTIDE 108 pg/mL (0-450); TROPONIN I < 0.01 ng/mL
[2018-08-10 17:39] LABS: ALB/GLOB RATIO 1.2 (1.1-1.8); ALBUMIN 3.8 g/dL (3.0-4.8); ALT/SGPT 17 U/L (7-56); AST/SGOT 34 U/L (14-36); BLOOD UREA NITROGEN 26 mg/dL (7-21); CALCIUM 9.2 mg/dL (8.4-10.5); GFR NON-AFRICAN AMERICAN > 60
[2018-08-10 18:35] VITALS: BP 138/73; PULSE 81; RESP 18; O2SAT 95
--- NOTE | 2018-08-10 19:08 | CARD ---
APPROVED REPORT Date of service: 08/10/2018 EKG Measurement Heart [id number] MI [id number] <Conclusion> Poor data quality, interpretation may be adversely affected Normal sinus rhythm Normal ECG
== END 2018-08-10 19:02 | disposition home or self-care (01) ==
LOC: ED 15:30
DX: J40 Bronchitis, not specified as acute or chronic (principal); I10 Essential (primary) hypertension; Z87.891 Personal history of nicotine dependence
CPT/HCPCS: 71045; 80053; 83735; 83880; 84484; 85025; 93005; 96374; 99284; J2930; J7030